=== PATIENT | male | born 1970 | race Caucasian/White ===

== ENCOUNTER 2016-07-18 08:10 | Observation (INO) | payer BC ==
[2016-07-18] MEDS ORDERED: Buffered Lidocaine 1% SYR 3ML* 3 ML/SYR SYRINGE ONE (08:35)
[2016-07-18] MEDS ORDERED: Clindamycin 900 MG IVPREMIX(* 900 MG/50 ML SDV IV ONE (08:35)
[2016-07-18] MEDS ORDERED: Famotidine IV* 10 MG/ML 2 ML (20 mg) ONE (08:35)
[2016-07-18] MEDS ORDERED: Dexamethasone IV* 4 MG/ML 1 ML (4 MG) ONE (08:35)
[2016-07-18] MEDS ORDERED: fentaNYL* 50 MCG/ML 5 ML VIAL (250 MCG VIAL) ONE (08:51)
[2016-07-18] MEDS ORDERED: Midazolam* 1 MG/ML 5 ML VIAL (5 MG) ONE (08:51)
[2016-07-18] MEDS ORDERED: HYDROmorphone INJ* 1 MG/ML CARPUJECT SYRINGE ONE ×4 (08:51→14:34)
[2016-07-18] MEDS ORDERED: Ondansetron INJ* 2 MG/ML VIAL ONE (08:53)
[2016-07-18] MEDS ORDERED: Succinylcholine* 20 MG/ML 10 ML VIAL ONE (08:53)
[2016-07-18] MEDS ORDERED: Lidocaine 2% MPF* 2 ML VIAL ONE (08:53)
[2016-07-18] MEDS ORDERED: Ketorolac INJ* 30 MG/ML 1 ML VIAL ONE (08:53)
[2016-07-18] MEDS ORDERED: Propofol* 10 MG/ML 20 ML BTL IV PUSH ONE (08:53)
[2016-07-18] MEDS ORDERED: Famotidine IV* 10 MG/ML 2 ML (20 mg) IV ONE (09:32)
[2016-07-18] MEDS ORDERED: Dexamethasone IV* 4 MG/ML 1 ML (4 MG) IV SLOW PU ONE (09:32)
[2016-07-18] MEDS ORDERED: Buffered Lidocaine 1% SYR 3ML* 3 ML/SYR SYRINGE INTRADERM ONE (09:32)
[2016-07-18] MEDS ORDERED: Scopolamine 1.5 mg* PATCH TRANSDERM PRN (09:33)
[2016-07-18] MEDS ORDERED: PROCHLORPERAZINE INJ 5 MG/ML 2 ML VIAL IV PRN (09:33)
[2016-07-18] MEDS ORDERED: DiMENhydriNATE IV* 50 MG/ML VIAL IV PUSH PRN (09:33)
[2016-07-18] MEDS ORDERED: HYDROmorphone INJ* 1 MG/ML CARPUJECT SYRINGE IV PRN (09:33)
[2016-07-18] MEDS ORDERED: fentaNYL* 50 MCG/ML 2 ML VIAL (100 MCG VIAL) IV PRN (09:33)
[2016-07-18] MEDS ORDERED: Ondansetron INJ* 2 MG/ML VIAL IV PRN ×2 (09:33→11:41)
[2016-07-18] MEDS ORDERED: Bacitracin IV* 50,000 UNITS INJ ONE (10:25)
[2016-07-18] MEDS ORDERED: Thrombin 5,000 UNITS* 1 APPLIC KIT - topical use - TOPICAL ONE (10:25)
[2016-07-18] MEDS ORDERED: Lidocain 1% EPI 1:100,000 * 30 ML MDV ONE (10:25)
[2016-07-18] MEDS ORDERED: fentaNYL* 50 MCG/ML 2 ML VIAL (100 MCG VIAL) ONE ×3 (11:11→14:40)
[2016-07-18] MEDS ORDERED: Magnesium Hydroxide LIQ* 30 ML UDC PO PRN (11:41)
[2016-07-18] MEDS ORDERED: Acetaminophen TAB* 325 MG PO PRN (11:41)
[2016-07-18] MEDS ORDERED: Midazolam* 1 MG/ML 2 ML VIAL (2 MG) ONE (12:09)
--- NOTE | 2016-07-18 14:52 | RAD ---
INDICATION: Left lumbar discectomy L4-L5 and L5-S1 levels. COMPARISON: Correlation is made with a prior MRI of the lumbar spine from June 26, 2016. TECHNIQUE: A single crosstable portable lateral view of the lumbar spine was obtained in the operating room. FINDINGS: There are several surgical instruments which project posterior centered approximately at the L4-L5 level. IMPRESSION: INTRAOPERATIVE CONTROL FILMS.
[2016-07-18] MEDS: Cyclobenzaprine TAB* 10 MG PO SCH ×2 (15:35→21:18)
[2016-07-18] MEDS ORDERED: fentaNYL PATCH 25 MCG/HR TRANSDERM SCH (16:00)
[2016-07-18] MEDS: Lidocaine PATCH 5%* 1 PATCH TRANSDERM SCH (16:01)
[2016-07-18] MEDS: fentaNYL Patch Check Q Shift 1 NOTE SCH (18:33)
[2016-07-18] MEDS: oxyCODONE TAB* 5 MG TAB PO PRN ×2 (18:39→23:45)
[2016-07-18] MEDS ORDERED: Lidocaine Patch REMOVE* 1 NOTE MISC PATCH OFF SCH (21:00)
[2016-07-19] MEDS: oxyCODONE TAB* 5 MG TAB PO PRN (06:23)
[2016-07-19] MEDS: fentaNYL Patch Check Q Shift 1 NOTE SCH (06:56)
[2016-07-19 07:38] VITALS: BP 142/88
--- NOTE | 2016-07-19 07:51 | PN ---
Progress Note - Progress Note SOAP: Subjective: []Feels better Leg pain better Still has numbness, weakness left foot Objective: []Ambulating, voiding OK Neuro intact except mild left foot weakness Assessment: []Satis post op course Plan: []D/C today D/C instructions given
[2016-07-19] MEDS: Cyclobenzaprine TAB* 10 MG PO SCH (08:10)
[2016-07-19] MEDS: Lidocaine PATCH 5%* 1 PATCH TRANSDERM SCH (08:49)
--- NOTE | 2016-07-20 23:43 | OP ---
OPERATIVE REPORT: DATE OF OPERATION: 07/18/16 DATE OF : 74 PRIMARY SURGEON: oM Lyons MD MANAGER TECHNICAL TRAINING: assistant distribution manager - ANDREA Cam ANESTHESIA: General. PRE-OP DIAGNOSIS: Recurrent herniated nucleus pulposus at L5-S1 on the left. POST-OP DIAGNOSIS: Recurrent herniated nucleus pulposus at L5-S1 on the left. OPERATIVE PROCEDURE: Redo lumbar discectomy at L5-S1 on the left with lysis of cicatrix and removal of recurrent herniated disk fragment with microdissection. DESCRIPTION OF OPERATION: This patient had previously undergone 2 prior surgical procedures by Dr. Lugo at the L4-5 and L5-S1 levels. He had developed recurrent back and leg pain and preoperative imaging had shown recurrent disc herniations at L5-S1 on the left side with a persistent disc herni ation at L4-5 on the left. He was placed on general anesthesia and carefully placed on the operatin g table in the prone position with the chest supported on the Arjun frame and the back slightly fle xed. The lumbar region was then clipped, prepped, and draped in a sterile manner for lumbar laminec rekha and previous incision was reopened from L4 to the sacrum. This incision was infiltrated with 1 % Xylocaine with epinephrine, after which it was turned down sharply to the fascia and scar tissue. There was a small portion remaining of the L4 spinous process, which was adherent with scar tissue. An intraoperative x-ray was obtained verifying this was indeed the L4-5 level. There was apparently no remaining posterior elements in the midline of L5. The dissection was quite tedious as the bony landmarks were missing and was performed basically from a lateral to medial approach. The bony edg es of the prior laminectomy were identified and dissected free utilizing a combination of sharp and blunt dissection. Ultimately, the sacrum was identified and moving upward, the L5- S1 level could b e seen. The operating microscope was brought into the field and the remainder of the procedure done was under microscopic visualization. Additional lateral exposure was obtained until the lateral edg e of the S1 nerve root could be seen. The S1 nerve root was noted to be compressed posteriorly. Wit h additional microdissection, epidural venous structures were coagulated and divided. There was fou nd to be a freely extruded disk fragment that come out of the L5-S1 level and rejecting down over th e upper aspect of sacrum in the neural foramina of the S1 nerve root. This was removed in 1 very la rge fragment. The interspace itself was noted to be heaped up in a chronic nature and was not enter ed. In dissecting free the dura, a small opening was made just above the interspace. A minute amou nt of CSF was noted and this was controlled with a piece of Gelfoam. Following the decompression, D uraSeal tissue adhesive was placed into the epidural space. Afterwards, the fascia was tightly reap proximated with tightly placed interrupted 0 Vicryl sutures. The subcutaneous tissues were closed w ith 3-0 Vicryl sutures and the skin closed with skin clips. The estimated blood loss was less than 50 cc and the final sponge, padding, and needle counts were correct. The patient was taken to the r ecovery room, extubated, and in stable condition. [id number]/[facility] #: [id number]
[2016-07-21] MEDS ORDERED: Scopolamine PATCH Remove* 1 NOTE MISC PATCH OFF ONE (09:35)
--- NOTE | 2016-07-24 22:57 | DS ---
DISCHARGE SUMMARY: DATE OF ADMISSION: 07/18/16 DATE OF DISCHARGE: 07/19/16 DISCHARGE DIAGNOSES: 1. Recurrent herniated nucleus pulposus, L5-S1 on the left. 2. Asthma. 3. History of 2 previous lumbar spine surgeries. SPECIAL PROCEDURE: Lumbar diskectomy at L5-S1 on the left. HOSPITAL COURSE: This 46-year-old male was seen in office with signs and symptoms of significant lumbar radiculopathy. He failed to improve over several months with conservative treatment. MRI showed a recurrent disk displacement at L5-S1 on the left. He was admitted at this time for elective surgical intervention. On the day of admission, he was taken to surgery, where under general anesthesia, a repeat lumbar diskectomy at L5-S1 on the left operation was carried out. Postoperatively, he was feeling well. Pain was well controlled with oral pain medications. He was ambulating independently. He was eating, drinking, and voiding without difficulty. DISCHARGE DISPOSITION: On the first postoperative day, he was discharged home to the care of his family. DISCHARGE INSTRUCTIONS: Discharge instructions including wound care and activity level were discussed with the patient and provided. DISCHARGE MEDICATIONS: Include oxycodone 10 mg 1 tablet every 4 hours as needed for pain. FOLLOWUP: He will be seen in office in approximately 7 to 10 days for a followup and staple removal. ANDREA TRUJILLO [id number]/[facility] #: [id number] MTDLudin
== END 2016-07-19 09:45 | disposition home or self-care (01) ==
LOC: OR 08:10 → SSU 15:15
PROVIDERS: ADMIT Neurological Surgery; ATTEND Neurological Surgery
PROC: 01NB0ZZ Release Lumbar Nerve, Open Approach (ICD-10-PCS; 2016-07-18)
PROC: 0SB20ZZ Excision of Lumbar Vertebral Disc, Open Approach (ICD-10-PCS; principal; 2016-07-18 09:30)
DX: M51.17 Intervertebral disc disorders with radiculopathy, lumbosacral region (principal); Z88.0 Allergy status to penicillin
CPT/HCPCS: 72100; 88304; 96361; 96374; A9270-GY; G0378; J0330; J1100; J1170; J1885; J2250; J2405; J2704; J3010

== ENCOUNTER 2016-11-18 18:31 | Emergency (ER) | payer BC ==
[2016-11-18] MEDS ORDERED: oxyCODONE TAB* 5 MG TAB PO ONE (19:26)
[2016-11-18] MEDS ORDERED: LORazepam TAB(*) 1 MG PO ONE (19:26)
[2016-11-18] MEDS ORDERED: Ketorolac INJ* 60 MG/2 ML VIAL IM ONE (19:27)
[2016-11-18] MEDS ORDERED: Ketorolac INJ* 30 MG/ML 1 ML VIAL ONE (19:57)
--- NOTE | 2016-11-18 20:00 | ED ---
Back Pain - HPI Summary HPI Summary: Patient presents to ED with lumbar back pain since this afternoon. He rates the pain a 10/10 and is visibly shaking and in discomfort on arrival. Pain is throughout the lumbar spine and radiates down both legs. He notes to numbness in the left leg. He is 4 mos s/p discectomy/laminectomy with chronic pain. He has taken 5mg valium for back spasms, but denies pain medications. He denies injury or trauma. He has had chronic back pain "since 1997." His is accompanying him. He states he does not like to take pain medications, based on the way it makes him feel. - History of Current Complaint Chief Complaint: EDBackInjuryPain Stated Complaint: BACK PAIN Time Seen by Provider: 11/18/16 19:17 Hx Obtained From: Patient Onset/Duration: Sudden Onset Onset/Duration: Started Hours Ago Timing: Constant Back Pain Location: Is Discrete @ - lumbar spine Pain Intensity: 10 Pain Scale Used: 0-10 Numeric Character: Aching, Spasmodic Aggravating Symptom(s): Movement, Bending, Walking Alleviating Symptom(s): Nothing Associated Signs And Symptoms: Positive: Weakness, Numbness, Tingling Related History: Previous Back Injury - Risk Factors AAA Risk Factors: Negative TAD Risk Factors: Negative Cauda Equina Risk Factors: Lower Extemity Numbness, Lower Extremity Weakness Epidural Abscess Risk Factors: Negative - Allergies/Home Medications Allergies/Adverse Reactions: Allergies Allergy/AdvReac Type Severity Reaction Status Date / Time Penicillins [PCN] Allergy Unknown Unknown Verified 07/18/16 08:39 Reaction Details PMH/Surg Hx/FS Hx/Imm Hx Previously Healthy: Yes Endocrine/Hematology History: Denies: Hx Diabetes, Hx Thyroid Disease Cardiovascular History: Denies: Hx Hypertension, Hx Pacemaker/ICD Respiratory History: Reports: Hx Asthma - SEASONAL, Hx Seasonal Allergies Denies: Hx Chronic Obstructive Pulmonary Disease (COPD) GI History: Denies: Hx Ulcer History: Denies: Hx Dialysis, Hx Renal Disease Musculoskeletal History: Reports: Hx Arthritis - LOW BACK, Hx Back Problems Sensory History: Reports: Hx Contacts or Glasses Denies: Hx Hearing Aid Opthamlomology History: Reports: Hx Contacts or Glasses Neurological History: Denies: Other Neuro Impairments/Disorders Psychiatric History: Denies: Hx Panic Disorder - Surgical History Surgery Procedure, Year, and Place: 05/2010 DOUBLE SYDNEE - LAMINECTOMY DR. NELSON. 07/[address] NELSON Hx Anesthesia Reactions: No - Immunization History Date of Tetanus Vaccine: up to date per pt Infectious Disease History: No Infectious Disease History: Denies: Hx Clostridium Difficile, Hx Hepatitis, Hx Human Immunodeficiency Virus (HIV), Hx of Known/Suspected MRSA, Hx Shingles, Hx Tuberculosis, Hx Known/ Suspected VRE, Hx Known/Suspected VRSA, History Other Infectious Disease, Traveled Outside the [place] in Last 30 Days - Family History Known Family History: Positive: Cardiac Disease, Other - cancer - Social History Occupation: Employed Full-time Lives: With Family Alcohol Use: Rare Hx Substance Use: No Substance Use Type: Reports: None Hx Tobacco Use: No Smoking Status (MU): Never Smoked Tobacco Do You Chew or Dip Tobacco: No Have You Smoked in the Last Year: No Review of Systems Constitutional: Negative Eyes: Negative Cardiovascular: Negative Respiratory: Negative Positive: no symptoms reported, see HPI Positive: Arthralgia - lower back pain radiating to the left leg Skin: Negative Psychological: Normal All Other Systems Reviewed And Are Negative: Yes Physical Exam - Summary Physical Exam Summary: Thorough physical exam was performed, focusing on thoracic and lumbar special tests and ROM. Due to patient pain around injury, physical exam was limited. Limited ROM. Flip Test positive. Straight leg raise positive. Hip flexion and extension, knee extension, dorsiflexion, great toe extension and plantar flexion intact. Rotating at hips limited d/t pain. Nerve roots L4-S2 reflexes intact. L1-L5 nerve root sensory intact. S1-S2 nerve root sensory decreased. No saddle anesthesia. Gait abnormal with a shuffle. Triage Information Reviewed: Yes Vital Signs On Initial Exam: Initial Vitals Temp Pulse Resp Pulse Ox 97.5 F 109 20 99 11/18/16 18:36 11/18/16 18:36 11/18/16 18:36 11/18/16 18:36 Vital Signs Reviewed: Yes Appearance: Positive: Well-Appearing, Well-Nourished Skin: Positive: Warm, Skin Color Reflects Adequate Perfusion Neck: Positive: Supple, No Lymphadenopathy Respiratory/Lung Sounds: Positive: Clear to Auscultation, Breath Sounds Present Cardiovascular: Positive: Normal, RRR Musculoskeletal: Positive: Pain @ - lumbar spine Neurological: Positive: Alert, Oriented to Person Place, Time, Speech Normal, Other - numbness and tingling of left leg. Psychiatric: Positive: Normal AVPU Assessment: Alert - [place] Coma Scale Best Eye Response: 4 - Spontaneous Best Motor Response: 6 - Obeys Commands Best Verbal Response: 5 - Oriented Coma Scale Total: 15 Diagnostics - Vital Signs Vital Signs Temp Pulse Resp BP Pulse Ox 11/18/16 18:39 97.1 F 109 20 1/ 100 11/18/16 18:36 97.5 F 109 20 99 - Laboratory Lab Statement: Any lab studies that have been ordered have been reviewed, and results considered in the medical decision making process. - CT No standard instances CT Interpretation: Positive (See Comments) CT Interpretation Completed By: Radiologist - IMPRESSION: 1. At L4-L5-L1 large posterior central to LEFT subarticular dorsal osteophyte results in moderate impression on the anterior and LEFT anterior margin of the thecal sac and probable effacement of the traversing LEFT L5 nerve root in the lateral recess without significant change. . Vertebral endplate osteophytosis and facet joint osteoarthritis results in moderately severe RIGHT and mild LEFT foraminal stenosis without significant change. 2. At L5-S1 dorsal osteophyte results in effacement of the traversing LEFT S1 nerve root in the lateral recess without significant change. Vertebral endplate osteophytosis and facet joint osteoarthritis results in moderately severe LEFT foraminal stenosis without significant change. Back Pain Course/Dx - Course Course Of Treatment: Patient sent to CT lumbar. Given Flexiril, toradol and oxycodone in ED with some relief. Patient made aware of CT results as no significant change was noted in the impression. Patient needs to follow up with Dr. Lyons or other neurosurgeon for further workup as this pain has been present since the surgery, and only recently has worsened. Refilled diazepam for pain and muscle spasms. - Diagnoses Differential Diagnosis/HQI/PQRI: Positive: Herniated Disc, Strain, Sprain Provider Diagnoses: Low back pain, Chronic back pain Discharge - Discharge Plan Condition: Stable Disposition: HOME Prescriptions: Diazepam TAB(*) [Valium TAB(*)] 5 mg PO Q6H PRN #20 tab MDD 4 PRN Reason: Pain Patient Education Materials: Lumbar Spinal Stenosis (ED) Referrals: Rajendra Benitez MD [Primary Care Provider] - Additional Instructions: Moist heat to the area as much as possible Valium for muscle spasms Please follow up with a neurosurgeon as soon as possible. If you develop worsening symptoms, or begin to have bladder or bowel dysfunction , please come back to ED.
--- NOTE | 2016-11-18 20:02 | RAD ---
Indication: Severe back pain acute on chronic. Previous spinal surgery. RIGHT side numbness. Concern for herniation. Comparison: June 27, 2016 MRI. Technique: Noncontrast CT lumbar sacral spine. Multiplanar reformation. Report: Unremarkable paravertebral soft tissues. Negative for fracture or spondylolysis at any level. Normal vertebral alignment without spondylolisthesis at any level. T12-L1: Unremarkable for age. L1-L2: Unremarkable for age. L2-L3: Unremarkable for age. L3-L4: Mild annular disc bulge with only mild resulting impression on the ventral margin of the thecal sac without significant acquired central canal stenosis. Negative for significant foraminal stenosis. L4-L5: Post laminectomy. Large posterior central to LEFT subarticular dorsal osteophyte with resulting impression on the anterior and LEFT anterior margin of the thecal sac and probable effacement of the traversing LEFT L5 nerve root in the lateral recess without significant change. Vertebral endplate osteophytosis and facet joint osteoarthritis results in moderately severe RIGHT and mild LEFT foraminal stenosis without significant change. L5-S1: Moderately large LEFT paracentral to subarticular dorsal osteophytosis with resulting mild impression on the LEFT anterior margin of the thecal sac and effacement of the traversing LEFT S1 nerve root in the lateral recess without significant change. Vertebral endplate osteophytosis and facet joint osteoarthritis results in moderately severe LEFT foraminal stenosis without significant change. Negative for significant RIGHT foraminal stenosis. IMPRESSION: 1. At L4-L5-L1 large posterior central to LEFT subarticular dorsal osteophyte results in moderate impression on the anterior and LEFT anterior margin of the thecal sac and probable effacement of the traversing LEFT L5 nerve root in the lateral recess without significant change. . Vertebral endplate osteophytosis and facet joint osteoarthritis results in moderately severe RIGHT and mild LEFT foraminal stenosis without significant change. 2. At L5-S1 dorsal osteophyte results in effacement of the traversing LEFT S1 nerve root in the lateral recess without significant change. Vertebral endplate osteophytosis and facet joint osteoarthritis results in moderately severe LEFT foraminal stenosis without significant change.
[2016-11-18 21:25] VITALS: BP 135/90
== END 2016-11-18 21:25 | disposition home or self-care (01) ==
LOC: SUPCPDRO 18:31 → ED 18:31
DX: M54.5 Low back pain (principal); G89.29 Other chronic pain
CPT/HCPCS: 72131; 96372; 99282; A9270-GY; J1885

== ENCOUNTER 2017-04-17 11:50 | Day surgery (SDC) | payer BC ==
[~2017-04-17 11:50] MED LIST: Buffered Lidocaine 0.9% SYRIN* 5 ML/SYR SYRINGE INTRADERM ONE
[2017-04-17] MEDS ORDERED: Clindamycin 900 MG IVPREMIX(* 900 MG/50 ML SDV IV ONE (12:01)
[2017-04-17] MEDS ORDERED: Buffered Lidocaine 0.9% SYRIN* 5 ML/SYR SYRINGE ONE (12:01)
[2017-04-17] MEDS ORDERED: Bupivacaine 0.25% SDV* 30 ML ONE (14:01)
[2017-04-17] MEDS ORDERED: Lidocaine 1% INJ* 10 MG/ML 30 ML SDV ONE (14:01)
[2017-04-17] MEDS ORDERED: Midazolam* 1 MG/ML 5 ML VIAL (5 MG) ONE (14:22)
[2017-04-17] MEDS ORDERED: fentaNYL* 50 MCG/ML 2 ML VIAL (100 MCG VIAL) ONE (14:23)
[2017-04-17] MEDS ORDERED: Propofol* 10 MG/ML 20 ML BTL IV PUSH ONE (14:28)
[2017-04-17] MEDS ORDERED: Lidocaine 2% PF * 5 ML VIAL ONE (14:28)
[2017-04-17] MEDS ORDERED: Labetalol IV* 5 MG/ML 20 ML VIAL ONE (15:02)
[2017-04-17 15:46] VITALS: BP 120/88
--- NOTE | 2017-04-17 15:55 | RAD ---
INDICATION: dorsal column stimulator placement COMPARISONS: CT dated November 18, 2016 TECHNIQUE: Fluoroscopy was provided for dorsal column stimulator placement. Total fluoroscopy time is: 291.2 seconds FINDINGS: Spot images demonstrate a dorsal column stimulator. The electrodes are noted overlying the lower thoracic spine. The levels are indeterminate on the submitted images. IMPRESSION: FLUOROSCOPY WAS PROVIDED FOR DORSAL COLUMN STIMULATOR PLACEMENT. CPT II Codes: 6045F
--- NOTE | 2017-04-18 00:56 | OP ---
CC: Shawn Lugo MD, in [place] * DATE OF OPERATION: 04/17/17 - [facility] DATE OF : 74 SURGEON: Walker Lee MD RADIOLOGICAL ENGINEER: None. ANESTHESIOLOGIST: Dr. Saul. ANESTHESIA: Local MAC. PRE-OP DIAGNOSIS: Postlaminectomy syndrome. POST-OP DIAGNOSIS: Postlaminectomy syndrome. OPERATIVE PROCEDURE: Percutaneous dorsal column stimulator trial replacement with Nevro system. BLOOD LOSS: Zero. BRIEF PRE-OP NOTE: The patient is a 47-year-old male who has suffered from postlaminectomy syndrome and has failed conservative measures. It was recommended that he see us for a dorsal column stimulator trial. I met with the patient in the office and had a discussion with him about his pain. It has been intractable and has failed conservative measures, and after discussing the dorsal column stimulator trial the patient wanted to proceed. He was explained the risks of postdural puncture headache, bleeding, infection, nerve injury and failure of the device to work. After going over the risks, benefits and alternatives, informed consent was obtained. DESCRIPTION OF PROCEDURE: The patient was brought to the OR suite, placed prone on the fluoroscopic table. His back was prepped and draped in the usual sterile fashion. Using fluoroscopy, I identified the T12-L1 interspace and over the pedicle of T2 on the right, I anesthetized the skin and subcutaneous tissues with a mixture 1% lidocaine and 0.25% Marcaine. A #11 blade was used to make a skin geraldo, and then a #14 gauge Tuohy needle was directed under fluoroscopic guidance to the T12-L1 interlaminar space. The epidural space was identified using loss of resistance to air technique. There was no CSF, blood or paresthesias noted. There was negative aspiration. I proceeded to pass an A -contact Nevro lead into the epidural space and guided it to the top of T8 to the right of midline. I then marked the pedicle of L2, anesthetized the skin and subcutaneous tissues over that area with a mixture of 1% lidocaine and 0.25 % Marcaine. I then used an #11 blade to make a skin geraldo and then passed a #14 gauge Tuohy needle and directed it under fluoroscopic guidance to the T12-L1 interspace to the left of midline. I then identified the epidural space using loss of resistance to air technique. There was no CSF, blood or paresthesias noted. There was negative aspiration. I passed an A- contact Nevro lead into the epidural space and guided it to the left of midline with the top of the lead was at the top of the T9 vertebral body. Lateral fluoroscopic views were obtained, which showed good posterior placement in the epidural space. I then removed the stylets and needles. The leads were then anchored with use of the anchoring sleeve and 3-0 Prolene sutures to anchor the sleeve to the skin. I then used a 0-silk suture to cinch the lead within the anchors. Steri-Strips were placed and sterile dressings were applied. The patient was brought to the recovery area in stable condition where his dorsal column stimulator will be programmed by the [employer] used equipment sales representative. Flouroscopic images were saved. [id number]/[facility] #: [id number] SAMMY
== END 2017-04-17 16:05 | disposition home or self-care (01) ==
LOC: OR 11:50
PROVIDERS: ATTEND Anesthesiology Pain Medicine
DX: M96.1 Postlaminectomy syndrome, not elsewhere classified (principal)
CPT/HCPCS: 77003; C1897; J2001; J2250; J2704; J3010

== ENCOUNTER 2017-05-25 16:35 | Emergency (ER) | payer BC ==
[2017-05-25] MEDS ORDERED: Ketorolac INJ* 60 MG/2 ML VIAL IM ONE (17:43)
[2017-05-25] MEDS ORDERED: Orphenadrine Citrate IV* 30 MG/ML 2 ML VIAL IM ONE (17:44)
[2017-05-25] MEDS ORDERED: NS 0.9% 1000 ML* 1,000 ML IV ONE (20:54)
[2017-05-25 21:12] LABS: Hematocrit 45 % (42-52); Hemoglobin 15.6 g/dl (14.0-18.0); Mean Corpuscular HGB Conc 35 g/dl (31-36); Mean Corpuscular Hemoglobin 31 pg (27-31); Mean Corpuscular Volume 90 fL (80-94); Mean Platelet Volume 9 um3 (7.4-10.4); Red Blood Count 5.01 10^6/ul (4.0-5.4); Red Cell Distribution Width 13 % (10.5-15); White Blood Count 7.9 10^3/ul (3.5-10.8)
--- NOTE | 2017-05-25 21:23 | ED ---
Raymon Dubose Abhishek, scribed for Jurgen Reyes on 05/25/17 at 1848 . Back Pain - HPI Summary HPI Summary: This patient is a 47 year old M presenting to [facility] accompanied by with a chief complaint of back pain since earlier today. Pt states the back pain was described as someone stabbing me in the back and somebody shoved something white hot thing in my back. Pt states the following medications did not alleviate pain: Diazepam, Ibuprofen, Oxycodone, and Flexeril. The patient rates the pain 10/10 in severity. Symptoms aggravated by nothing. Symptoms alleviated by nothing. Patient reports numbness and tingling in right and left leg, back spasms, and ambulatory with assistance. Patient denies incontinence urine and BM. Pt also refused the rectal examination. - History of Current Complaint Chief Complaint: EDBackInjuryPain Stated Complaint: BACK PAIN Time Seen by Provider: 05/25/17 17:31 Hx Obtained From: Patient, Family/Correspondence Analyst Onset/Duration: Sudden Onset - earlier today, Lasting Hours Onset/Duration: Started Hours Ago Timing: Constant, Lasting Hours Severity Initially: Severe Severity Currently: Severe Pain Intensity: 10 Pain Scale Used: 0-10 Numeric Character: Sharp - Pt states the back pain was described as someone stabbing me in the back, Burning - Pt describes pain as somebody shoved something white hot thing in my back. Aggravating Symptom(s): Nothing Alleviating Symptom(s): Nothing Associated Signs And Symptoms: Positive: Numbness - both legs, Tingling - both legs. Negative: Bladder Incontinence, Bowel Incontinence - Allergies/Home Medications Allergies/Adverse Reactions: Allergies Allergy/AdvReac Type Severity Reaction Status Date / Time Penicillins [PCN] Allergy Unknown Unknown Verified 05/25/17 17:15 Reaction Details PMH/Surg Hx/FS Hx/Imm Hx Endocrine/Hematology History: Denies: Hx Diabetes, Hx Thyroid Disease Cardiovascular History: Reports: Hx Hypertension - BORDERLINE- STATES NO MEDICATION FOR AT THIS TIME Denies: Hx Pacemaker/ICD Respiratory History: Reports: Hx Asthma - SEASONAL, Hx Seasonal Allergies Denies: Hx Chronic Obstructive Pulmonary Disease (COPD) GI History: Denies: Hx Ulcer History: Denies: Hx Dialysis, Hx Renal Disease Musculoskeletal History: Reports: Hx Arthritis - LOW BACK, Hx Back Problems Sensory History: Reports: Hx Contacts or Glasses - GLASSES Denies: Hx Hearing Aid Opthamlomology History: Reports: Hx Contacts or Glasses - GLASSES Neurological History: Denies: Other Neuro Impairments/Disorders Psychiatric History: Denies: Hx Panic Disorder - Surgical History Surgery Procedure, Year, and Place: 05/2010 DOUBLE SYDNEE - LAMINECTOMY DR. NELSON. 07/[address] NELSON. 07/2016 DISCECTOMY Hx Anesthesia Reactions: No - Immunization History Date of Tetanus Vaccine: up to date per pt Infectious Disease History: No Infectious Disease History: Denies: Hx Clostridium Difficile, Hx Hepatitis, Hx Human Immunodeficiency Virus (HIV), Hx of Known/Suspected MRSA, Hx Shingles, Hx Tuberculosis, Hx Known/ Suspected VRE, Hx Known/Suspected VRSA, History Other Infectious Disease, Traveled Outside the [place] in Last 30 Days - Family History Known Family History: Positive: Cardiac Disease, Other - cancer - Social History Alcohol Use: Rare Alcohol Amount: 1 beer per month Hx Substance Use: No Substance Use Type: Reports: Prescribed Hx Tobacco Use: No Smoking Status (MU): Never Smoked Tobacco Have You Smoked in the Last Year: No Review of Systems Constitutional: Negative Eyes: Negative ENT: Negative Cardiovascular: Negative Respiratory: Negative Gastrointestinal: Negative Negative: incontinence Positive: Other - sharp back pain, back spasms Skin: Negative Neurological: Other - Ambulatory with assitance Positive: Numbness - Both legs. Each leg also has a tingling feeling Psychological: Normal All Other Systems Reviewed And Are Negative: Yes Physical Exam - Summary Physical Exam Summary: Appearance: Well appearing, no pain distress Skin: warm, dry, reflects adequate perfusion Head/face: normal Eyes: EOMI, JALEEL ENT: normal Neck: supple, non-tender Respiratory: CTA, breath sounds present Cardiovascular: RRR, pulses symmetrical Abdomen: non-tender, soft Bowel: present Musculoskeletal: Spasms in the lumbar spine Neuro: normal, sensory motor intact, A&Ox3 Triage Information Reviewed: Yes Vital Signs On Initial Exam: Initial Vitals Temp Pulse Resp BP Pulse Ox 97.0 F 99 18 183/105 97 05/25/17 16:40 05/25/17 16:40 05/25/17 16:40 05/25/17 16:40 05/25/17 16:40 Vital Signs Reviewed: Yes - Petra Coma Scale Coma Scale Total: 15 Diagnostics - Vital Signs Vital Signs Temp Pulse Resp BP Pulse Ox 05/25/17 18:00 90 95 05/25/17 17:30 94 133/70 94 05/25/17 17:07 92 95 05/25/17 17:05 132/85 05/25/17 16:40 97.0 F 99 18 183/105 97 - Laboratory Lab Results: Lab Results 05/25/17 Range/Units 21:02 WBC 7.9 (3.5-10.8) 10^3/ul RBC 5.01 (4.0-5.4) 10^6/ul Hgb 15.6 (14.0-18.0) g/dl Hct 45 (42-52) % MCV 90 (80-94) fL MCH 31 (27-31) pg MCHC 35 (31-36) g/dl RDW 13 (10.5-15) % Plt Count 161 (150-450) 10^3/ul MPV 9 (7.4-10.4) um3 Neut % (Auto) 67.2 (38-83) % Lymph % (Auto) 24.6 L (25-47) % [place] % (Auto) 5.7 (1-9) % Eos % (Auto) 1.5 (0-6) % Baso % (Auto) 1.0 (0-2) % Absolute Neuts (auto) 5.3 (1.5-7.7) 10^3/ul Absolute Lymphs (auto) 1.9 (1.0-4.8) 10^3/ul Absolute Monos (auto) 0.4 (0-0.8) 10^3/ul Absolute Eos (auto) 0.1 (0-0.6) 10^3/ul Absolute Basos (auto) 0.1 (0-0.2) 10^3/ul Absolute Nucleated RBC 0.01 10^3/ul Nucleated RBC % 0.1 Result Diagrams: 05/25/17 21:02 Lab Statement: Any lab studies that have been ordered have been reviewed, and results considered in the medical decision making process. Back Pain Course/Dx - Course Course Of Treatment: This patient is a 47 year old M presenting to [facility] accompanied by with a chief complaint of back pain since earlier today. Pt states the back pain was described as someone stabbing me in the back and somebody shoved something white hot in my back. Patient reports numbness and tingling in right and left leg, back spasms, and ambulatory with assistance. Patient denies incontinence urine and BM. Pt also refused the rectal examination. We discussed patient care with Dr. Hester and he recommends an MRI on the spine of the patient. Patient is signed out to Dr. Clemente, pending disposition, awaiting Lumbar Spine MRI. The Dx is back pain. The patient is agreeable with this plan. - Diagnoses Differential Diagnosis/HQI/PQRI: Positive: Cauda Equina Syndrome, Compressive Cord Syndrome, Epidural Abscess, Herniated Disc, Strain Provider Diagnoses: Back pain - Provider Notifications Discussed Care Of Patient With: Mo Hester Time Discussed With Above Provider: 18:44 Instructed by Provider To: Other - He recommends MRI on the spine for patient Discharge - Discharge Plan Condition: Stable Disposition: OTHER Discharge Disposition Comment: Patient signed out to Dr. Clemente pending disposition, awaiting L-Spine MRI Referrals: Rajendra Benitez MD [Primary Care Provider] - The documentation as recorded by the Rayomn davis Abhishek accurately reflects the service I personally performed and the decisions made by me, Jurgen Reyes.
[2017-05-25 21:33] LABS: BUN/Creatinine Ratio 21.4 (8-20); EGFR African American 127.1 (>60); EGFR Non-African American 98.8 (>60); Globulin 2.5 g/dL (2-4); Potassium 3.7 mmol/L (3.5-5.0); Total Bilirubin 0.5 mg/dL (0.2-1.0); Total Protein 6.5 g/dL (6.4-8.9)
[2017-05-25 21:36] LABS: Urine Bacteria Absent (Absent); Urine Bilirubin Negative (Negative); Urine Glucose 3+(>=500 mg/dL) (Negative); Urine Nitrite Negative (Negative)
--- NOTE | 2017-05-25 21:49 | RAD ---
INDICATION: Recent removal of dorsal column stimulator. Confirm with imaging. COMPARISON: Fluoroscopy April 17, 2017 TECHNIQUE: AP views of the thoracic and lumbar spine were obtained. FINDINGS: The dorsum column stimulator is not identified. This is consistent with the clinical history as provided by the patient. There is spurring of the thoracic spine and there is a spinal decompression at L4 and L5. There is no acute appearing bony change. The psoas margins are sharp. IMPRESSION: THE DORSAL COLUMN STIMULATOR HAS BEEN REMOVED.
[2017-05-25] MEDS ORDERED: Gadoteridol* (CONTRAST) 279.3 MG/ML 10 ML IV ONE (22:25)
[2017-05-26 00:25] VITALS: BP 126/74
--- NOTE | 2017-05-26 03:56 | ED ---
Ofelia Dubose Edward, scribed for Katherine Clemente MD on 05/25/17 at 2228 . Progress - Progress Note Progress Note: Pt signed out by Dr. Reyes pending MRI results. - Results/Orders Results/Orders: LUMBAR SPINE MRI - Patient is status post L4-5 laminotomy. Again note is made of L4-5 disc bulging with broad-based herniated component indenting the canal and slightly narrowing the foramina. The L4-5 disc bulge/herniation looks similar to the June scan. Again note is made of L5-S1 left paramedian disc herniation impressing on the left anterior canal and on the left S1 nerve root and narrowing the left foramen. the disc herniation, although still fairly severe, appears less prominent than on the June scan. No other lumbar disc bony or legamentous abnormalities are identified. No other abnormalities of the lumbar canal or nerve roots. Re-Evaluation - Re-Evaluation 1 Re-Evaluation Time: 00:05 Comment: Discuss MRI results, plan to d/c Course/Dx - Course Course Of Treatment: This patient is a 47 year old M presenting to [facility] accompanied by with a chief complaint of back pain since earlier today. Pt signed out by Dr. Reyes. Pt is on steroids. Pt states he has pain medications @ home. The pt has an appointment with his spine surgeon on 06/29/17 for a dorsal column stimulator. Pt will talk to his spine surgeon this week for pain management. Pt will be d/c home. - Diagnoses Provider Diagnoses: Back pain The documentation as recorded by the Ofelia davis Edward accurately reflects the service I personally performed and the decisions made by , Katherine Clemente MD.
--- NOTE | 2017-05-26 07:59 | RAD ---
HISTORY: Severe back pain with numbness in right leg COMPARISONS: June 27, 2016, June 26, 2016 TECHNIQUE: The following sequences were obtained of the lumbar spine: Sagittal and axial T1- and T2-weighted images, coronal T2-weighted images, and sagittal STIR images. Additionally, axial and sagittal T1 weighted images were obtained after contrast enhancement with a gadolinium-based intravenous contrast agent.. FINDINGS: The study is limited by patient motion artifact. SPINAL CORD, CONUS, AND CAUDA EQUINA: The visualized spinal cord, conus, and cauda equina are normal in caliber, position, and signal intensity. ALIGNMENT: The alignment is normal. VERTEBRAL BODIES: A laminectomy defect is noted at L4-L5 and L5-S1. JOINTS: There is facet hypertrophic change along the lower lumbar spine. MUSCULATURE: There is mild fatty infiltration INTERVERTEBRAL DISCS: There is loss of intervertebral disc height and T2 signal at L4-L5 and L5-S1 AXIAL IMAGES: T12-L1: There is no disc herniation, spinal stenosis, or neuroforaminal narrowing. L1-L2: There is no disc herniation, spinal stenosis, or neuroforaminal narrowing. L2-L3: There is bilateral facet hypertrophy. There is no disc herniation, spinal stenosis, or neuroforaminal narrowing. L3-L4: There is mild disc bulge with bilateral facet hypertrophy. There is no significant neural foraminal narrowing or central canal stenosis. L4-L5: There is broad-based disc bulge with nonenhancing soft tissue centrally consistent with a central disc protrusion, somewhat decreased from the residual disc material noted on the previous examination. There is partial effacement of the lateral recess bilaterally. There is bilateral facet hypertrophy. There is moderate bilateral neuroforaminal narrowing. L5-S1: Again noted is nonenhancing soft tissue within the left lateral recess consistent with a left lateral recess disc protrusion. This is slightly retracted from the previous examination currently measuring 0.8 centimeters in depth compared to approximately 1 cm when measured at comparable levels on the previous examination. There is persistent mass effect upon the descending left S1 nerve root. There is bilateral facet hypertrophy. There is marginal osteophyte formation at the neural foramina bilaterally. There is severe left and mild right neural foraminal narrowing. SOFT TISSUES: The visualized soft tissues of the abdomen are unremarkable. OTHER: There is minimal postsurgical enhancement at the levels of laminectomy. IMPRESSION: 1. POSTSURGICAL CHANGE. 2. AGAIN NOTED IS DEGENERATIVE DISC DISEASE AND OSTEOARTHRITIS WITH DISC PROTRUSIONS AT L4-L5 AND L5-S1, SLIGHTLY IMPROVED WHEN COMPARED TO JUNE 26, 2016. 3. THERE IS NEURAL FORAMINAL NARROWING DESCRIBED ABOVE. THERE IS NO SIGNIFICANT CENTRAL CANAL STENOSIS.
== END 2017-05-26 00:32 | disposition home or self-care (01) ==
LOC: ED 16:35
DX: M54.9 Dorsalgia, unspecified (principal)
CPT/HCPCS: 36415; 72100; 72158; 80053; 81003; 81015; 85025; 85610; 85730; 96372; 96374; 99284; A9579; J1885; J2360

== ENCOUNTER 2017-07-25 15:32 | Inpatient (IN) | payer BC ==
[2017-07-25 16:28] LABS: ABS Basophils 0.1 10^3/ul (0-0.2); ABS Eosinophils 0.2 10^3/ul (0-0.6); ABS Lymphocytes 1.6 10^3/ul (1.0-4.8); ABS Monocytes 0.5 10^3/ul (0-0.8); ABS Neutrophils 2.8 10^3/ul (1.5-7.7); ABS Nucleated RBC 0 10^3/ul; Eosinophil % 4.4 % (0-6); Hematocrit 44 % (42-52); Hemoglobin 15.6 g/dl (14.0-18.0); Lymphocyte % 31.2 % (25-47); Mean Corpuscular HGB Conc 35 g/dl (31-36); Mean Corpuscular Hemoglobin 31 pg (27-31); Mean Corpuscular Volume 89 fL (80-94); Mean Platelet Volume 9 um3 (7.4-10.4); Nucleated Red Blood Cells % 0; Platelet Count 172 10^3/ul (150-450); Red Blood Count 4.97 10^6/ul (4.0-5.4); Red Cell Distribution Width 12 % (10.5-15); White Blood Count 5.2 10^3/ul (3.5-10.8)
--- NOTE | 2017-07-25 16:28 | RAD ---
INDICATION: Left-sided weakness COMPARISON: CT of the brain dated June 14, 2005 TECHNIQUE: Contiguous axial sections of the brain were obtained from the skull base to the vertex without contrast. FINDINGS: The ventricles, cisterns and sulci are within normal limits. The davis-white matter differentiation is adequately maintained and there is no sulcal effacement. No significant focal abnormality or mass effect is present. There is no evidence for intracranial hemorrhage. No significant focal osseous abnormality is present. The visualized portion of the paranasal sinuses appear clear. The mastoid air cells are well aerated bilaterally. IMPRESSION: Normal CT of the brain.
[2017-07-25 16:43] LABS: EGFR Non-African American 90.1 (>60)
[2017-07-25] MEDS ORDERED: Iodixanol* (CONTRAST) 320 MG/ML 100 ML SDV IV ONE (18:49)
--- NOTE | 2017-07-25 18:52 | ED ---
Tico Dubose Stephanie, scribed for Sole Butler MD on 07/25/17 at 1750 . Neurological HPI - HPI Summary HPI Summary: The pt is a 47 y/o M presenting to the ED with c/o stroke-like symptoms that occurred yesterday at 13:00. Symptoms include Increased L foot drag, L arm weakness, L hand numbness, L facial numbness, and slurred speech. ( states his speech was like he had been to the dentist and his tongue was thick). The pt has a L foot drag at baseline but it was exacerbated yesterday during the neurological deficit episode. The first episode lasted 10- 15 minutes and the second episode lasted 30/45 minutes. All symptoms stopped at 15:00 yesterday. Per , pts face currently looks symmetrical. The pts L arm is currently weak. The pt has a history of diabetes but does not check his blood sugar. The pt has had 5 back surgeries including lumbar Double sydnee-laminectomy, discectomy , stimulator trial, and thoracic laminectomy, and a dorsal column stimulator ().The pt received the dorsal column stimulator from Dr. Ford at [facility] in [place], [place]. - History of Current Complaint Chief Complaint: EDNeurologicalDeficit Stated Complaint: POSS STROKE Time Seen by Provider: 07/25/17 15:47 Hx Obtained From: Patient, Family/Research Methodologist - , Other: - Dr. 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 - Additional Pertinent History Primary Care Physician: [id number] - Allergy/Home Medications Allergies/Adverse Reactions: Allergies Allergy/AdvReac Type Severity Reaction Status Date / Time Penicillins [PCN] Allergy Unknown Unknown Verified 05/25/17 17:15 Reaction Details Home Medications: Home Medications Diazepam TAB(*) [Valium TAB(*)] 5 mg PO Q12HR PRN MDD 10 mg 07/25/17 [History Confirmed 07/25/17] Ibuprofen TAB* [Advil TAB*] 200 mg PO Q6H PRN 07/25/17 [History Confirmed ] Methocarbamol TAB* [Robaxin 500 MG TAB*] 500 mg PO QID PRN 07/25/17 [History Confirmed 07/25/17] Ondansetron TAB* [Zofran 4 MG Tab*] 4 mg PO Q6H PRN 07/25/17 [History Confirmed 07/25/17] metFORMIN* [Glucophage 500 MG TAB *] 500 mg PO BID 07/25/17 [History Confirmed 07/25/17] oxyCODONE/Acetamin 5/325 MG* [Percocet 5/325 TAB*] 1 tab PO Q6H PRN 07/25/17 [ History Confirmed 07/25/17] PMH/Surg Hx/FS Hx/Imm Hx Endocrine/Hematology History: Reports: Hx Diabetes Denies: Hx Thyroid Disease Cardiovascular History: Reports: Hx Hypertension Denies: Hx Pacemaker/ICD Respiratory History: Reports: Hx Asthma - SEASONAL, Hx Seasonal Allergies Denies: Hx Chronic Obstructive Pulmonary Disease (COPD) GI History: Denies: Hx Ulcer History: Denies: Hx Dialysis, Hx Renal Disease Musculoskeletal History: Reports: Hx Arthritis - LOW BACK, Hx Back Problems - multiple surgeries Sensory History: Reports: Hx Contacts or Glasses - GLASSES Denies: Hx Hearing Aid Opthamlomology History: Reports: Hx Contacts or Glasses - GLASSES Neurological History: Denies: Other Neuro Impairments/Disorders Psychiatric History: Denies: Hx Panic Disorder - Surgical History Surgery Procedure, Year, and Place: 05/2010 DOUBLE SYDNEE - LAMINECTOMY DR. NELSON. 07/[address] NELSON. 07/[address] [place]. 2016 SPINAL STIMULATOR PLACEMENT - AND REMOVAL - LEAD REMOVAL VERIFIED VIA CLEARANCE XRAYS PER DR. CHAN 05.25.2017 Hx Anesthesia Reactions: No - Immunization History Date of Tetanus Vaccine: up to date per pt Infectious Disease History: No Infectious Disease History: Denies: Hx Clostridium Difficile, Hx Hepatitis, Hx Human Immunodeficiency Virus (HIV), Hx of Known/Suspected MRSA, Hx Shingles, Hx Tuberculosis, Hx Known/ Suspected VRE, Hx Known/Suspected VRSA, History Other Infectious Disease, Traveled Outside the [place] in Last 30 Days - Family History Known Family History: Positive: Cardiac Disease, Other - cancer - Social History Occupation: Employed Full-time Lives: With Family Alcohol Use: None Alcohol Amount: 1 beer per month Hx Substance Use: No Substance Use Type: Reports: Prescribed Hx Tobacco Use: No Smoking Status (MU): Never Smoked Tobacco Have You Smoked in the Last Year: No Review of Systems Negative: Fever Cardiovascular: Negative Respiratory: Negative Gastrointestinal: Negative Positive: Other - chronic back pain Skin: Negative Positive: Weakness - L upper and L lower extremities, Numbness - L hand, L face , Slurred Speech Psychological: Normal All Other Systems Reviewed And Are Negative: Yes Physical Exam - Summary Physical Exam Summary: Appearance: Ill-appearing, moderate pain distress, Well-nourished Skin: Warm, surgical scar on left Lower thoracic area well healed. Scar above L hip well healed. Head: Normal Head/Face inspection, symmetric Eyes: Conjunctiva clear PERRL EOMI ENT: Normal inspection Neck: Supple, no nodes, no JVD. Respiratory: Lungs clear, Normal breath sounds, no respiratory distress Cardio: RRR, No murmur, pulses normal, brisk capillary refill Abdomen: soft, nontender Bowel sounds: present Musculoskeletal: left plantar flexion and dorsiflexion 4/5; right 5/5 Intact/ ROM intact. No calf tenderness. No edema. Neuro: Alert, CN II-XII intact; muscle tone normal, facial symmetry, speech normal, sensory intact to light touch, left lower leg 4+/5 strength, left foot with 4/5 plantar flexion and 4/5 dorsiflextion. Motor strength on right 5/5 Psychological: Normal Triage Information Reviewed: Yes Vital Signs On Initial Exam: Initial Vitals Temp Pulse Resp BP Pulse Ox 97.1 F 91 20 139/104 95 07/25/17 15:34 07/25/17 15:34 07/25/17 15:34 07/25/17 15:34 07/25/17 15:34 Vital Signs Reviewed: Yes - [place] Coma Scale Coma Scale Total: 15 Diagnostics - Vital Signs Vital Signs Temp Pulse Resp BP Pulse Ox 07/25/17 17:00 91 19 153/93 96 07/25/17 16:37 94 21 161/100 95 07/25/17 16:00 87 18 146/96 96 07/25/17 15:57 95 07/25/17 15:55 91 19 94 07/25/17 15:53 155/92 07/25/17 15:34 97.1 F 91 20 139/104 95 - Laboratory Lab Results: Lab Results 07/25/17 07/25/17 07/25/17 Range/Units 16:15 16:15 16:15 WBC 5.2 (3.5-10.8) 10^3/ul RBC 4.97 (4.0-5.4) 10^6/ul Hgb 15.6 (14.0-18.0) g/dl Hct 44 (42-52) % MCV 89 (80-94) fL MCH 31 (27-31) pg MCHC 35 (31-36) g/dl RDW 12 (10.5-15) % Plt Count 172 (150-450) 10^3/ul MPV 9 (7.4-10.4) um3 Neut % (Auto) 53.4 (38-83) % Lymph % (Auto) 31.2 (25-47) % [place] % (Auto) 9.8 H (1-9) % Eos % (Auto) 4.4 (0-6) % Baso % (Auto) 1.2 (0-2) % Absolute Neuts (auto) 2.8 (1.5-7.7) 10^3/ul Absolute Lymphs (auto) 1.6 (1.0-4.8) 10^3/ul Absolute Monos (auto) 0.5 (0-0.8) 10^3/ul Absolute Eos (auto) 0.2 (0-0.6) 10^3/ul Absolute Basos (auto) 0.1 (0-0.2) 10^3/ul Absolute Nucleated RBC 0 10^3/ul Nucleated RBC % 0 INR (Anticoag Therapy) 1.00 (0.77-1.02) APTT 35.2 (26.0-36.3) seconds Sodium 137 (133-145) mmol/L Potassium 3.5 (3.5-5.0) mmol/L Chloride 100 L (101-111) mmol/L Carbon Dioxide 31 (22-32) mmol/L Anion Gap 6 (2-11) mmol/L BUN 15 (6-24) mg/dL Creatinine 0.91 (0.67-1.17) mg/dL Est GFR ( Amer) 115.9 (>60) Est GFR (Non-Af Amer) 90.1 (>60) BUN/Creatinine Ratio 16.5 (8-20) Glucose 168 H (70-100) mg/dL Lactic Acid (0.5-2.0) mmol/L Calcium 9.5 (8.6-10.3) mg/dL Total Bilirubin 0.40 (0.2-1.0) mg/dL AST 18 (13-39) U/L ALT 39 (7-52) U/L Alkaline Phosphatase 58 (34-104) U/L Troponin I 0.00 (<0.04) ng/mL Total Protein 6.2 L (6.4-8.9) g/dL Albumin 3.9 (3.2-5.2) g/dL Globulin 2.3 (2-4) g/dL Albumin/Globulin Ratio 1.7 (1-3) 07/25/17 Range/Units 16:15 WBC (3.5-10.8) 10^3/ul RBC (4.0-5.4) 10^6/ul Hgb (14.0-18.0) g/dl Hct (42-52) % MCV (80-94) fL MCH (27-31) pg MCHC (31-36) g/dl RDW (10.5-15) % Plt Count (150-450) 10^3/ul MPV (7.4-10.4) um3 Neut % (Auto) (38-83) % Lymph % (Auto) (25-47) % [place] % (Auto) (1-9) % Eos % (Auto) (0-6) % Baso % (Auto) (0-2) % Absolute Neuts (auto) (1.5-7.7) 10^3/ul Absolute Lymphs (auto) (1.0-4.8) 10^3/ul Absolute Monos (auto) (0-0.8) 10^3/ul Absolute Eos (auto) (0-0.6) 10^3/ul Absolute Basos (auto) (0-0.2) 10^3/ul Absolute Nucleated RBC 10^3/ul Nucleated RBC % INR (Anticoag Therapy) (0.77-1.02) APTT (26.0-36.3) seconds Sodium (133-145) mmol/L Potassium (3.5-5.0) mmol/L Chloride (101-111) mmol/L Carbon Dioxide (22-32) mmol/L Anion Gap (2-11) mmol/L BUN (6-24) mg/dL Creatinine (0.67-1.17) mg/dL Est GFR ( Amer) (>60) Est GFR (Non-Af Amer) (>60) BUN/Creatinine Ratio (8-20) Glucose (70-100) mg/dL Lactic Acid 1.2 (0.5-2.0) mmol/L Calcium (8.6-10.3) mg/dL Total Bilirubin (0.2-1.0) mg/dL AST (13-39) U/L ALT (7-52) U/L Alkaline Phosphatase (34-104) U/L Troponin I (<0.04) ng/mL Total Protein (6.4-8.9) g/dL Albumin (3.2-5.2) g/dL Globulin (2-4) g/dL Albumin/Globulin Ratio (1-3) Result Diagrams: 07/25/17 16:15 07/25/17 16:15 Lab Statement: Any lab studies that have been ordered have been reviewed, and results considered in the medical decision making process. - CT Brain CT Interpretation: No Acute Changes CT Interpretation Completed By: Radiologist - Normal CT of the brain. - EKG 15:52 EKG Rhythm: Sinus Rhythm - 88 BPM EKG Interpretation: Nml AVIVCT, nml QTc, nml axis EKG Comparison: No Significant Change - 07/11/16 NIH Scale - NIH Scale Level of Consciousness: Alert/Keenly Responsive Ask Patient the Month and His/Her Age: Both Correct Ask Pt to Open/Close Eyes and Cooling Pipe Inspector/Release Non-Paretic Hand: Both Correctly Best Gaze (Only Horizontal Eye Movement): Normal Facial Paresis-Pt to Smile & Close Eyes or Grimace Symmetry: Normal/Symmetrical Motor Function - Right Arm: No Drift-Holds 10 Seconds Motor Function - Left Arm: No Drift-Holds 10 Seconds Motor Function - Right Leg: No Drift-Holds 10 Seconds Motor Function - Left Leg: Drifts LT 10 seconds Sensory (Use Pinprick to Test Arms/Legs/Trunk/Face): Normal Best Language (Describe Picture, Name Items): No Aphasia Dysarthria (Read Several Words): Normal Re-Evaluation - Re-Evaluation First Eval Re-Evaluation Time: 18:00 - informed Dr. Ford recommends no MRI. Will be admitted. To have CTA head and neck Change: Unchanged Second Eval Re-Evaluation Time: 19:30 - informed of CTA results. Pt agrees to admission Change: Unchanged Course/Dx - Course Course Of Treatment: No evidence of CVA on initial CT. Pt unable to have MRI due to dorsal column stimulator, per discussion by phone with pt's neurosurgeon , Dr. Ford. Per Dr Goodson ([facility]) will obtain CTA of head and neck . Per Dr. Chan, CTA shows no significant carotid disease. Pt will be admitted for aspirin therapy, cardiac echo, and further evaluation for possible stroke. - Differential Dx Differential Diagnoses Neuro: Positive: Cerebrovascular Accident, Intracranial Bleed, Transient Ischemic Attack - Diagnoses Provider Diagnoses: TIA (transient ischemic attack), Left leg weakness - Physician Notifications Discussed Care Of Patient With: [facility] Good[facility] - try to determine if can have MRI. If not, CTA head and neck Time Discussed With Above Provider: 17:40 - Dr. Frod, neurosurgeon, [facility]; pt may have ASA. Discharge - Discharge Plan Condition: Stable Disposition: ADMITTED TO [facility] documentation as recorded by the Tico davis Stephanie accurately reflects the service I personally performed and the decisions made by , Sole Butler MD.
--- NOTE | 2017-07-25 19:37 | RAD ---
INDICATION: Left-sided weakness-now resolved COMPARISON: CT brain July 25, 2017 TECHNIQUE: Axial source images were acquired with coronal and sagittal reconstructions. CT angiographic technique was utilized with injection of 80 mL Omnipaque 350. There is mildly suboptimal opacification of the aortic arch and proximal great vessels but this is considered a diagnostic study. FINDINGS: Aortic arch: There are no convincing CT angiogram abnormalities of the arch or the great vessels arising from the arch. Right carotid: The common carotid artery, carotid bifurcation, extracranial portions of the internal carotid artery, carotid artery at the skull base, carotid siphon, and carotid termination appear normal. Left carotid:The common carotid artery, carotid bifurcation, extracranial portions of the internal carotid artery, carotid artery at the skull base, carotid siphon, and carotid termination appear normal. Right middle and anterior cerebral arteries: There are no CT angiographic abnormalities of the middle or anterior cerebral arteries. Left middle and anterior cerebral arteries: There are no CT angiographic abnormalities of the middle or anterior cerebral arteries Right vertebral: The CT angiographic appearance of the vertebral artery is normal. Left vertebral: The CT angiographic appearance of the vertebral artery is normal. Basilar artery: The basilar artery and basilar tip appear normal. Posterior cerebral arteries: The distal distribution of the right and left posterior cerebral arteries is normal. [place] of [place]: The CT angiographic appearance of the [place] is normal. Source images show no evidence of mass or adenopathy within the neck. There are no focal brain parenchymal abnormalities or abnormal areas of enhancement. IMPRESSION: NO SPECIFIC CT ENDOGRAFT ABNORMALITY. CPT II Codes: 3100F RS
[2017-07-25] MEDS ORDERED: Ondansetron INJ* 2 MG/ML VIAL IV PRN (19:44)
[2017-07-25] MEDS ORDERED: Acetaminophen TAB* 325 MG PO PRN (19:44)
[2017-07-25] MEDS ORDERED: Aspirin EC TAB* 325 MG PO ONE (19:46)
[2017-07-25] MEDS ORDERED: Diazepam TAB(*) 5 MG PO PRN (20:07)
[2017-07-25] MEDS ORDERED: Ondansetron TAB* 4 MG PO PRN (20:07)
[2017-07-25] MEDS ORDERED: oxyCODONE/Acetamin 5/325 MG* TAB PO PRN (20:07)
[2017-07-25] MEDS ORDERED: Ibuprofen TAB* 200 MG PO PRN (20:07)
[2017-07-25] MEDS ORDERED: Dextrose 50% Syringe 50 ML* 25 GM/50 ML SYRINGE IV PUSH PRN (20:12)
[2017-07-25 20:21] LABS: Urine Appearance Clear; Urine Blood Negative (Negative); Urine Color Yellow; Urine Ketones Trace (Negative); Urine Protein Negative (Negative); Urine Specific Gravity > 1.060 (1.010-1.030); Urine Urobilinogen Negative (Negative)
[2017-07-25] MEDS ORDERED: metFORMIN* 500 MG TAB PO SCH (21:00)
[2017-07-25] MEDS: Heparin VIAL(*) 5000 UNITS/ML VIAL (FIVE THOUSAND) SUBCUT SCH (22:17)
[2017-07-25] MEDS: Methocarbamol TAB* 500 MG PO PRN (22:20)
--- NOTE | 2017-07-26 00:07 | HP ---
CC: Dr. Benitez * HISTORY AND PHYSICAL: DATE OF ADMISSION: 07/25/17 PRIMARY CARE PROVIDER: Dr. Benitez. NEUROSURGEON: Dr. Ford. CHIEF COMPLAINT: Increased left-sided weakness, numbness of the left face, arm and leg. HISTORY OF PRESENT ILLNESS: Mr. Slaughter is a 47-year-old male with a history of hypertension, newly diagnosed type 2 diabetes, and chronic back pain, who presented to the emergency room on 07/25/17 with complaints of increased left- sided weakness and numbness on the day prior to admission. The patient notes that he was at [facility] on 07/24/17 when he had a severe back spasm. Following the back spasm, he noticed first increased left leg numbness followed by left arm and left face tingling. His felt that his speech was somewhat slurred. The patient believes that the symptoms lasted for about approximately 1 to 2 hours and then resolved after lying down at home. The patient contacted the [facility] for the dorsal column stimulator that was placed last month to see if these symptoms that he had could be side effects from the dorsal column stimulator. He states that he called them after hours and was called back this morning stating that these were not symptoms consistent with the device that was placed. He was then told to call his primary care provider. He called his PCP who then referred him to the emergency room for evaluation. The patient states that overall he is essentially back to normal at this point. He does note that he chronically has left-sided weakness and numbness; however during that episode , his symptoms were dramatically worse and they were even at its worst time when his symptoms are flaring up ordinarily. The patient noted that his left foot was dragging as he was trying to walk through [facility]. The patient had no other symptoms at that time. PAST MEDICAL HISTORY: 1. Chronic back pain. 2. Hypertension. 3. Type 2 diabetes. 4. Intermittent asthma. PAST SURGICAL HISTORY: 1. Dorsal column stimulator insertion, June 2017. 2. Diskectomy, July 2016. 3. Laminectomy, 2012. 4. Hemilaminectomy, 2009. MEDICATIONS: 1. Percocet 5/325 one tab p.o. q.6 hours p.r.n. pain. 2. Metformin 500 mg p.o. b.i.d. 3. Zofran 4 mg p.o. q.6 hours p.r.n. nausea. 4. Ibuprofen 200 mg p.o. q.6 hours p.r.n. pain. 5. Hydrochlorothiazide 25 mg p.o. daily. 6. Diazepam 5 mg p.o. q.12 hours p.r.n. anxiety/spasm. 7. Robaxin 500 mg p.o. 4 times daily p.r.n. spasm. ALLERGIES: PENICILLIN. FAMILY HISTORY: Mom is living. She is 74. She has complications related to drinking and smoking since being a teenager. Dad is living. He is 73. He has a history of IN x2. SOCIAL HISTORY: The patient is a nonsmoker. He does not drink. 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 He is . He has 4 children. His , Macie, is his healthcare proxy. REVIEW OF SYSTEMS: A complete 11-system review of systems is obtained. Pertinent positives and negatives are as per HPI and otherwise negative except he does state that he feels anxious today. PHYSICAL EXAMINATION GENERAL: The patient is a well-developed, morbidly obese, middle aged male, seen sitting up in the stretcher, in no acute distress. VITAL SIGNS: Blood pressure 121/77, pulse 86, respirations 17, temp 97.1, O2 sat 96% on room air. HEENT: Pupils are equal. They are round. They react to light. Extraocular muscles are intact. Oropharynx is clear. Oral mucosa is moist. There is no submandibular, cervical or supraclavicular adenopathy. Thyroid is not enlarged. No thyroid nodules are noted. PULMONARY: Lungs are clear to auscultation bilaterally. CARDIAC: Normal S1, S2. Regular rate and rhythm. I do not appreciate any murmurs. There is no lower extremity edema. ABDOMEN: Bowel sounds are present. Abdomen is soft, nontender, nondistended. Abdomen is obese. MUSCULOSKELETAL: There is no cyanosis or clubbing of the digits. There is full active range of motion of all 4 extremities though bilateral lower extremity range of motion is slightly limited due to back pain. SKIN: Warm and dry. There are no rashes. The patient's lower thoracic incision is healing well. There is no surrounding erythema. There is no drainage. NEUROLOGIC: Cranial nerves II through XII are grossly intact. Sensation is intact to light touch throughout though slightly decreased on the left, which the patient states is chronic. Strength is 5/5 and symmetric in the upper extremities. 5/5 strength in the right lower extremity, 4+/5 strength in the left lower extremity. PSYCH: The patient is alert. He is oriented x3. Affect appears appropriate. LABORATORY DATA: WBC 5.2, hemoglobin 15.6, hematocrit 44, platelets 172. INR 1.0. Sodium 137, potassium 3.5, chloride 100, CO2 31, BUN 15, creatinine 0.91. Glucose 168, lactic acid 1.2. Calcium 9.5. Bilirubin 0.4, AST 18, ALT 39, alk phos 58. Troponin 0. Albumin 3.9. CT of the brain: normal CT of the brain. CTA head and neck: no CT angiographic abnormalities noted of the right carotid, left carotid, middle cerebral arteries, vertebral arteries, basilar artery, posterior cerebral arteries and the [place] of [place]. EKG, normal sinus rhythm without any acute ST or T wave abnormalities. ASSESSMENT AND PLAN: Mr. Slaughter is a 47-year-old male who has a history of hypertension, type 2 diabetes and chronic back pain with chronic left-sided weakness and mild numbness, who presents to the emergency room after having an episode of increased weakness, numbness/tingling of the left face, arm and legs as well as slurred speech that lasted for approximately 1 to 2 hours on the day prior. 1. Possible transient ischemic attack. The patient states that chronically he has left lower extremity weakness and numbness; however, he did have numbness and tingling of the left face and left arm with episode the day prior to admission. This makes me concerned the patient may have in fact had a transient ischemic attack. He is not on aspirin and therefore, I will go ahead and give 325 mg of aspirin now, followed by 81 mg daily. I will obtain a lipid profile tomorrow morning and add a hemoglobin A1c to the labs drawn in the emergency room. We will aim for good blood sugar control, hypertension control, and lipid control. A Neurology consultation will be requested. The patient was already run by Dr. Goodson. The patient will have neuro checks q.4 hours. An MRI is not possible at this point due to the newly placed dorsal column stimulator. A transesophageal echocardiogram should be obtained to complete the workup; however, as it is Friday, this likely can be performed next week as an outpatient. 2. Hypertension. Currently, the patient's blood pressure is under excellent control. I will continue his hydrochlorothiazide at 25 mg daily. 3. Type 2 diabetes. The patient's metformin will be held for 48 hours given the CTA of the head and neck. He will be placed on a lispro sliding scale q.a.c. As above, hemoglobin A1c will be obtained. 4. Chronic back pain. The patient will be continued on his usual home medications regimen of diazepam p.r.n., ibuprofen p.r.n., Robaxin p.r.n. and Percocet p.r.n. 5. DVT prophylaxis. According to the Adult Thrombosis Prophylaxis Risk Factor Assessment Guide, the patient has a total risk factor score of 2 making him moderate risk. He will be placed on heparin 5000 units subcutaneous q.12 hours. 6. Code status is full. TIME SPENT: 65 minutes were spent admitting this patient. [id number]/CPS #: [id number] [id number]
[2017-07-26] MEDS: Aspirin EC Low Dose* 81 MG TAB.EC PO SCH (08:48)
[2017-07-26] MEDS: Hydrochlorothiazide TAB* 25 MG PO SCH (08:48)
[2017-07-26] MEDS: Methocarbamol TAB* 500 MG PO PRN (08:49)
[2017-07-26] MEDS: Heparin VIAL(*) 5000 UNITS/ML VIAL (FIVE THOUSAND) SUBCUT SCH ×2 (08:50→20:40)
[2017-07-26] MEDS: Insulin LISPRO* 1 UNITS UNIT SUBCUT SCH ×3 (08:50→17:05)
--- NOTE | 2017-07-26 12:04 | PN ---
Subjective Date of Service: 07/26/17 Interval History: Mr. Slaughter is a 47 yo male who presented to the ED with concern for increased left sided weakness and numbness of left face/arm/leg; these symptoms have since resolved but he was referred to the ED by his PCP with concern for CVA/ TIA. Currently he is sitting up eating lunch, denies any weakness/numbness, CP, SOB or other acute complaint. He wants to go home as soon as possible. Discussed his A1c and lipid profile; he states that his PCP is following the A1c and feels the A1c may be elevated from previous steroid treatment of chronic pain. Plan for patient to continue f/u with PCP to monitor BG. He also would like to discuss starting a statin with his PCP; we discussed dietary modification to help lower his lipids and LDLs. Telemetry: SR [id number] Family History: Unchanged from Admission Social History: Unchanged from Admission Past Medical History: Unchanged from Admission Objective Active Medications: Acetaminophen (Tylenol Tab*) 650 mg PO Q4H PRN PRN Reason: PAIN Aspirin (Aspirin Ec Low Dose*) 81 mg PO DAILY [facility] Last Admin: 07/26/17 08:48 Dose: 81 mg Dextrose (D50w Syringe 50 Ml*) 12.5 gm IV PUSH .FOR FS < 60 - SS PRN PRN Reason: FS < 60 Diazepam (Valium Tab(*)) 5 mg PO Q12HR PRN PRN Reason: ANXIETY Heparin Sodium (Porcine) (Heparin Vial(*)) 5,000 units SUBCUT Q12HR [facility] Last Admin: 07/26/17 08:50 Dose: 5,000 units Hydrochlorothiazide (Hydrodiuril Tab*) 25 mg PO DAILY [facility] Last Admin: 07/26/17 08:48 Dose: 25 mg Ibuprofen (Advil Tab*) 200 mg PO Q6H PRN PRN Reason: FEVER/PAIN Insulin Human Lispro (Humalog*) 0 units SUBCUT AC [facility] PRN Reason: Protocol Last Admin: 07/26/17 08:50 Dose: 3 units Methocarbamol (Robaxin Tab*) 500 mg PO QID PRN PRN Reason: PAIN Last Admin: 07/26/17 08:49 Dose: 500 mg Ondansetron HCl (Zofran Inj*) 4 mg IV Q6H PRN PRN Reason: NAUSEA Ondansetron HCl (Zofran Tab*) 4 mg PO Q6H PRN PRN Reason: NAUSEA/VOMITING Oxycodone/Acetaminophen (Percocet 5/325 Tab*) 1 tab PO Q6H PRN PRN Reason: PAIN Vital Signs - 8 hr 07/26/17 07/26/17 07/26/17 04:41 07:42 08:49 Temperature 98.4 F 97.5 F Pulse Rate 81 84 Respiratory 20 16 18 Rate Blood Pressure 126/84 146/93 (mmHg) O2 Sat by Pulse 94 94 Oximetry Oxygen Devices in Use Now: None Appearance: Male patient, sitting up, NAD Eyes: No Scleral Icterus, PERRLA Ears/Nose/Mouth/Throat: Clear Oropharnyx, Mucous Membranes Moist Neck: NL Appearance and Movements; NL JVP Respiratory: Symmetrical Chest Expansion and Respiratory Effort, Clear to Auscultation Cardiovascular: NL Sounds; No Murmurs; No JVD, RRR Abdominal: NL Sounds; No Tenderness; No Distention Extremities: No Edema, No Clubbing, Cyanosis Neurological: Alert and Oriented x 3, NL Muscle Strength and Tone Lines/Tubes/Other Access: Clean, Dry and Intact Peripheral IV Nutrition: Taking PO's Result Diagrams: 07/25/17 16:15 07/25/17 16:15 Additional Lab and Data: Lab Results 07/25/17 07/25/17 07/25/17 Range/Units 16:15 16:15 16:15 WBC 5.2 (3.5-10.8) 10^3/ul RBC 4.97 (4.0-5.4) 10^6/ul Hgb 15.6 (14.0-18.0) g/dl Hct 44 (42-52) % MCV 89 (80-94) fL MCH 31 (27-31) pg MCHC 35 (31-36) g/dl RDW 12 (10.5-15) % Plt Count 172 (150-450) 10^3/ul MPV 9 (7.4-10.4) um3 Neut % (Auto) 53.4 (38-83) % Lymph % (Auto) 31.2 (25-47) % [place] % (Auto) 9.8 H (1-9) % Eos % (Auto) 4.4 (0-6) % Baso % (Auto) 1.2 (0-2) % Absolute Neuts (auto) 2.8 (1.5-7.7) 10^3/ul Absolute Lymphs (auto) 1.6 (1.0-4.8) 10^3/ul Absolute Monos (auto) 0.5 (0-0.8) 10^3/ul Absolute Eos (auto) 0.2 (0-0.6) 10^3/ul Absolute Basos (auto) 0.1 (0-0.2) 10^3/ul Absolute Nucleated RBC 0 10^3/ul Nucleated RBC % 0 INR (Anticoag Therapy) 1.00 (0.77-1.02) APTT 35.2 (26.0-36.3) seconds Sodium 137 (133-145) mmol/L Potassium 3.5 (3.5-5.0) mmol/L Chloride 100 L (101-111) mmol/L Carbon Dioxide 31 (22-32) mmol/L Anion Gap 6 (2-11) mmol/L BUN 15 (6-24) mg/dL Creatinine 0.91 (0.67-1.17) mg/dL Est GFR ( Amer) 115.9 (>60) Est GFR (Non-Af Amer) 90.1 (>60) BUN/Creatinine Ratio 16.5 (8-20) Glucose 168 H (70-100) mg/dL Lactic Acid (0.5-2.0) mmol/L Calcium 9.5 (8.6-10.3) mg/dL Total Bilirubin 0.40 (0.2-1.0) mg/dL AST 18 (13-39) U/L ALT 39 (7-52) U/L Alkaline Phosphatase 58 (34-104) U/L Troponin I 0.00 (<0.04) ng/mL Total Protein 6.2 L (6.4-8.9) g/dL Albumin 3.9 (3.2-5.2) g/dL Globulin 2.3 (2-4) g/dL Albumin/Globulin Ratio 1.7 (1-3) 07/25/17 Range/Units 16:15 WBC (3.5-10.8) 10^3/ul RBC (4.0-5.4) 10^6/ul Hgb (14.0-18.0) g/dl Hct (42-52) % MCV (80-94) fL MCH (27-31) pg MCHC (31-36) g/dl RDW (10.5-15) % Plt Count (150-450) 10^3/ul MPV (7.4-10.4) um3 Neut % (Auto) (38-83) % Lymph % (Auto) (25-47) % [place] % (Auto) (1-9) % Eos % (Auto) (0-6) % Baso % (Auto) (0-2) % Absolute Neuts (auto) (1.5-7.7) 10^3/ul Absolute Lymphs (auto) (1.0-4.8) 10^3/ul Absolute Monos (auto) (0-0.8) 10^3/ul Absolute Eos (auto) (0-0.6) 10^3/ul Absolute Basos (auto) (0-0.2) 10^3/ul Absolute Nucleated RBC 10^3/ul Nucleated RBC % INR (Anticoag Therapy) (0.77-1.02) APTT (26.0-36.3) seconds Sodium (133-145) mmol/L Potassium (3.5-5.0) mmol/L Chloride (101-111) mmol/L Carbon Dioxide (22-32) mmol/L Anion Gap (2-11) mmol/L BUN (6-24) mg/dL Creatinine (0.67-1.17) mg/dL Est GFR ( Amer) (>60) Est GFR (Non-Af Amer) (>60) BUN/Creatinine Ratio (8-20) Glucose (70-100) mg/dL Lactic Acid 1.2 (0.5-2.0) mmol/L Calcium (8.6-10.3) mg/dL Total Bilirubin (0.2-1.0) mg/dL AST (13-39) U/L ALT (7-52) U/L Alkaline Phosphatase (34-104) U/L Troponin I (<0.04) ng/mL Total Protein (6.4-8.9) g/dL Albumin (3.2-5.2) g/dL Globulin (2-4) g/dL Albumin/Globulin Ratio (1-3) Assess/Plan/Problems-Billing Assessment: Mr. Slaughter is a 47 yo male with a PMH significant for DM2, HTN, and chronic back pain with chronic left sided weakness/numbness who presented to the ED on06/30 with concern for a transient episode of increased weakness, numbness and tingling to left face/arm/legs, and slurred speech that lasted for 1-2 hours on 07/24/17. - Patient Problems (1) TIA (transient ischemic attack) Comment: Suspected, given patient's story of worsening left sided weakness/numbness and slurred speech. Appreciate neurology input; patient should continue outpatient neuro follow-up Inpatient hypercoaguability workup per neuro Continue ASA Elevated trigylcerides, LDLs - plan to start statin, but patient would like to hold on this and discuss with PCP. Unable to check MRI as patient has new dorsal column stimulator Recheck CT brain, plan for TTE with bubble. Recommended to have LOLA as outpatient. Initial CT brain negative for acute pathology. CTA head/neck shows no focal abnormalities or the brain or mass/adenopathy of the neck. (2) HTN (hypertension) Code(s): I10 - ESSENTIAL (PRIMARY) HYPERTENSION Comment: Normotensive, good control Continue home HCTZ. (3) Type 2 diabetes mellitus Comment: HgbA1c 8.1 Continue to hold metformin x 48 hours after CTA Continue Lispro SSI Patient could benefit from increased metformin dose and diabetic education upon discharge for better glucose control. Will refer patient for outpatient follow-up with [facility]. (4) Chronic back pain Code(s): M54.9 - DORSALGIA, UNSPECIFIED; G89.29 - OTHER CHRONIC PAIN Comment: Stable Continue home prn medications of diazepam, ibuprofen, Percocet, and Robaxin. (5) DVT prophylaxis Comment: SQ heparin Status and Disposition: OBV admit. D/c to home when medically stable.
--- NOTE | 2017-07-26 16:29 | RAD ---
Indication: Stroke. CT of the brain was performed without IV contrast. Ventricular structures are midline. No midline shift is noted. The extraction spaces are unremarkable. There is no evidence of intracranial mass or hemorrhage. No other high or low density lesions are identified. Mastoid air cells and paranasal sinuses are otherwise unremarkable. No changes noted since July 25, 2017. IMPRESSION: No intracranial mass or hemorrhage is noted.
--- NOTE | 2017-07-26 22:22 | CONS ---
CONSULTATION REPORT: DATE OF CONSULT: 07/26/17 PRIMARY CARE PROVIDER: Dr. Benitez. HOSPITALIST: Dr. Tammy Sawant. PRIOR NEUROSURGEON: Dr. Ford. REASON FOR CONSULT: Chronic back pain and left-sided weakness and numbness. HISTORY OF PRESENT ILLNESS: Mr. Slaughter is a very nice 49-year-old gentleman who has a history of asthma, hypertension, type 2 diabetes and chronic back pain. He states that the diabetes was diagnosed several months ago prior to his surgery. On 06/24/17, he underwent dorsal column stimulator for his chronic back pain. He states that he has had multiple back surgeries in the past in 2009, 2012 and 2017. He has done well with his pain stimulator. He states that he has been talking with the stimulator company and they have been increasing his stimulation over the last month. He was in his usual state of health 2 days ago. On 07/24/17, he was in [facility] and he noted that he had what he felt was a severe back spasm with some leg weakness. He states at the same time , he developed some numbness and tingling in his left arm and his face. His also reported that she thought he was slurring his speech, but he denies any facial droop. He states that the initial symptoms lasted about 20 minutes. He was able to "walk it off," but then subsequently had a return of symptoms which ultimately lasted 2 to 3 hours and resolved after he went home and lied down. Initially, he tried to contact the dorsal column stimulator company, finally getting through with them. They stated that this was likely not related to the stimulator and that he should see his primary care provider which he saw the next day, who sent him to the ER for further evaluation. He has had no further symptoms although he continues to have some what he says is weakness in his left leg and arm. He does have chronic weakness in his left leg and feels that it is at baseline. He states that the arm and hand weakness is new. He denies any facial tingling or weakness, does have some mild tingling in his left upper arm. He has developed no right-sided symptoms. He denies any chest pain or jaw claudication. He has never had any similar symptoms. There is a family history of stroke in his paternal uncle and his father apparently had a heart attack, unknown age after returning from [place]. There is no hypercoagulable history in the family. His mother had no miscarriages. There is no history of bleeding disorders that he is aware of. He was not previously on an aspirin prior to this. Since the event, he notes that his left foot has been dragging more. He denies any problem swallowing or speaking. He denies any vision changes. He denies any headache and is otherwise in his usual state of health. Yesterday in the ER, he did have a CT of the brain done, which showed no abnormalities and appears normal to me on my read. He had a CT angiogram of the head and neck, which showed no vascular abnormalities. I did speak with the ER doctor who checked in to getting an MRI, but he was unable to have an MRI due to his stimulator. He was admitted for further stroke workup. PAST MEDICAL HISTORY: As noted above. PAST SURGICAL HISTORY: Hemilaminectomy in 2009, laminectomy in 2012, diskectomy in July 2016 and dorsal column stimulator in 06/24/17. HOME MEDICATIONS: Include: 1. Percocet 5/325. 2. Glucophage 500 mg b.i.d. 3. Zofran p.r.n. 4. Ibuprofen p.r.n. 5. Hydrochlorothiazide 25 mg daily. 6. Diazepam 5 mg p.r.n. 7. Methocarbamol 500 mg 4 times a day p.r.n. INPATIENT MEDICATIONS: 1. Tylenol 650 mg q.4 hour. 2. Aspirin 81 mg daily. 3. Diazepam 5 mg p.r.n.. 4. Heparin DVT prophylaxis. 5. Hydrochlorothiazide 25 mg daily. 6. Ibuprofen 200 mg p.o. q.6 hours p.r.n. 7. Insulin. 8. Methocarbamol 500 mg p.o. 4 times a day p.r.n. 9. Zofran p.r.n. 10. Percocet 5/325 one tablet q.6 hours p.r.n. 11. He did receive an aspirin 325 mg yesterday in the ER. ALLERGIES: To PENICILLIN. FAMILY HISTORY: Significant for father with coronary artery disease and an uncle with stroke. Mom has history with drinking. SOCIAL HISTORY: He denies tobacco, alcohol or drug use. Formerly a banker. Now disabled. , has 4 children. REVIEW OF SYSTEMS: His review of systems in 14-organ systems as noted above. Otherwise negative. PHYSICAL EXAM: In general, he is a well nourished, well developed gentleman, sitting the side of his hospital bed. He is pleasant, well dressed, well groomed. HEENT: Normocephalic, atraumatic. Sclerae anicteric. Mucous membranes are moist. Oropharynx is clear. Nares are patent. Neck is supple. No thyromegaly, no carotid bruits. No meningismus. Chest: Clear to auscultation bilaterally. Cardiovascular: Regular rate and rhythm. Abdomen: Nontender, nondistended. Extremities: No clubbing, cyanosis or edema. Skin is warm and dry without lesions. Neurologic Exam: He is awake, alert, oriented x3. His speech is fluent. There is no dysarthria. Repetition is intact. Recall of recent and remote events is intact. Vocabulary is intact. His mood is dysthymic. Affect and mood congruent. Cranial nerves II through XII: Pupils equal, round and reactive to light. Extraocular muscles were intact. Visual potter are full to confrontation. Face is symmetric. Facial sensation is intact to light touch bilaterally. Hearing is intact bilaterally. Tongue is midline. Palate raises symmetrically. Shoulder shrug and sternocleidomastoid are normal. Motor Exam: Spontaneously moving all extremities anti-gravity, tone and bulk are both normal. His right upper and lower extremities are 5/5 throughout. The left upper extremity proximally is 4+ /5. Distally is 4+/5. Left lower extremity proximally is 4/[address] , distally 4+/5. DTRs are 1+ and symmetric in the ankles and patella bilaterally. Downgoing Babinski's. In the upper extremities, 2+ bilaterally at the biceps, triceps, brachioradialis. Laessa-cd-anlk and rapid alternating movements are intact. Gait is antalgic. He circumducts his left leg. Sensation, he has decreased all modalities in the left leg in a patchy distribution with some paraesthesia in the left lateral leg. DIAGNOSTIC STUDIES/LAB DATA: Includes a CBC with diff was essentially normal and INR of 1.0. PTT of 35.2. Complete metabolic profile with chloride of 100, glucose of 168, hemoglobin A1c of 8.1, repeat glucose of 170, total protein of 6.2. Triglycerides of 208. Cholesterol of 138, LDL of 75, HDL of 21.7. Imaging and studies as noted above. Echocardiogram is pending. Repeat CT scan is pending. ASSESSMENT AND PLAN: Mr. Slaughter is a 47-year-old gentleman with a history of chronic back pain, history of type 2 diabetes, history of hypertension, who recently underwent a procedure to place a dorsal column stimulator for chronic back pain, has history of multiple back surgeries with chronic weakness and sensation changes in his left lower extremity, presented to the hospital yesterday after developing numbness, worsening weakness in the left leg and some numbness and tingling in the left face and arm the day prior on the . At the time he presented to the hospital, his symptoms had largely resolved, although he continued to have some mild tingling in his left arm, what he felt was some weakness in his left hand and arm and felt that his left leg was baseline. He no longer had anymore facial numbness or tingling. He has no prior history of strokes. There is no family history of strokes. There is no family history of hypercoagulable state. He does have risk factors. He was admitted to the hospital with a negative CT scan of the head, unable to get an MRI. The plan is to repeat the CT of the head to look for any evolving stroke although when the CT of the head was done yesterday, he was well over 24 hours out. Obviously, not a tPA candidate. The CT angiogram shows no evidence of significant carotid, vertebral or intracerebral artery disease. Transthoracic echocardiogram is planned and I would recommend getting a transesophageal echocardiogram as an outpatient given his young age. I do not think he needs to stay in the hospital for that. I am going to check a hypercoagulable panel as well to look for any other causes of stroke in a young. We will continue his aspirin 81 mg daily. His cholesterol, his LDL was 75, was good given his polypharmacy. I do not know that we need to start a statin at this time. He needs to strive for tight control of his diabetes and hypertension overtime to help lower the risk of heart attack and stroke. DISPOSITION: Likely home tomorrow if his studies are normal. The plan will be to get an outpatient transesophageal echocardiogram as well as a followup with me. I will continue to follow him closely. Thank you for the opportunity to participate in his care. [id number]/CPS #: [id number] SAMMY
[2017-07-27] MEDS: Heparin VIAL(*) 5000 UNITS/ML VIAL (FIVE THOUSAND) SUBCUT SCH (08:05)
[2017-07-27] MEDS: Aspirin EC Low Dose* 81 MG TAB.EC PO SCH (08:05)
[2017-07-27] MEDS: Hydrochlorothiazide TAB* 25 MG PO SCH (08:05)
[2017-07-27] MEDS: Insulin LISPRO* 1 UNITS UNIT SUBCUT SCH ×2 (08:05→12:08)
[2017-07-27] MEDS ORDERED: Perflutren Lipid Microsphere* 3 ML VIAL ONE (11:36)
[2017-07-27 12:49] VITALS: BP 131/89
--- NOTE | 2017-07-27 14:22 | ECHO ---
Patient: DORCAS MAO [facility] Rec#: [id number] : 1970 Date: 07/27/2017 Age: 47y Height: 180.3 cm / 71.0 in Weight: 126.6 kg / 279.0 lbs Sex: M BSA: 2.4 Room#: [facility] Admit Date#: 07/25/2017 Type: Inpatient Referring: Aby Arteaga DO Reading: Ray Rosas MD Duplicating Machine Mechanic: Maile Crabtree RN RDCS CC: Rajendra Benitez Transthoracic Echocardiogram Indication: TIA BP: 134/90 HR: 81 Rhythm: NSR Findings History: HTN, DM, intermittent asthma, chronic back pain, chronic left-sided weakness and numbness Technical Comments: The study is technically limited due to patient body habitus. Completed at 1215. Left Ventricle: The left ventricular chamber size is normal. Mild concentric left ventricular hypertrophy is observed. Global left ventricular wall motion and contractility are within normal limits. There is normal left ventricular systolic function. The estimated ejection fraction is 55-60%. There is an E to A reversal in the mitral valve flow pattern suggestive of diastolic dysfunction. Left Atrium: The left atrial chamber size is normal. Right Ventricle: The right ventricular chamber size and systolic function are within normal limits. Right Atrium: The right atrial cavity size is normal. The bubble study is negative. A patent foramen ovale is not demonstrated with color Doppler and agitated contrast. Aortic Valve: The aortic valve is trileaflet. The aortic valve leaflets are mildly thickened. There is no evidence of aortic regurgitation. There is no evidence of aortic stenosis. Mitral Valve: The mitral valve leaflets are mildly thickened. There is a trace of mitral regurgitation. Tricuspid Valve: The tricuspid valve leaflets are normal. There is trace tricuspid regurgitation. Unable to estimate the right ventricular systolic pressure. Pulmonic Valve: The pulmonic valve appears normal. There is a trace pulmonic regurgitation. There is no pulmonic stenosis. Pericardium: There is no significant pericardial effusion. A pericardial fat pad is visualized. Aorta: There is mild dilatation of the ascending aorta. There is no dilatation of the aortic arch. There is no dilation of the aortic root. Pulmonary Artery: The main pulmonary artery is not well visualized. Venous: The inferior vena cava appears normal in size. There is an approximate 50% respiratory change in the inferior vena cava dimension. Contrast: Normal saline was used as contrast for the bubble study. Images 101 and 102. Definity was used to enhance endocardial border definition. A total of 4 ml of diluted Definity was given IV. Conclusions There is normal left ventricular systolic function. The estimated ejection fraction is 55-60%. Global left ventricular wall motion and contractility are within normal limits. Mild concentric left ventricular hypertrophy is observed. There is an E to A reversal in the mitral valve flow pattern suggestive of diastolic dysfunction. Normal cardiac chamber sizes. Functionally benign heart valves. A patent foramen ovale is not demonstrated with color Doppler nor agitated contrast. There is mild dilatation of the ascending aorta. There is no prior echocardiogram available to compare with at this time. Measurements Name Value Normal Range RVDdMajor (2D) 3.8 cm (2.2 - 4.4) RAd ISD 4CH 4.3 cm (3.4 - 4.9) RA (A4C)W 3.3 cm (2.9 - 4.6) IVSd (2D) 1.2 cm (0.6 - 1) LVPWd (2D) 1.2 cm (0.6 - 1) LVIDd (2D) 4.6 cm (3.6 - 5.4) LVIDs (2D) 3.3 cm - LV FS (2D) 27 % (25 - 45) Aortic Annulus 2.4 cm (1.4 - 2.6) Ao root diameter (2D) 3.5 cm (2.1 - 3.5) Ascending Ao 3.6 cm (2.1 - 3.4) Aortic arch 2.8 cm (1.8 - 3.4) LA dimension (AP) 2D 3.3 cm (2.3 - 3.8) LAd ISD 4CH 4.3 cm (2.9 - 5.3) LA ISD 4CH W 3.3 cm (2.5 - 4.5) Name Value Normal Range LA ESV SP 4CH (A/L) 29 ml - LA ESV SP 2CH (A/L) 42 ml - LA ESV BP (A/L) 36 ml - LA ESV BP (A/L) index 14.7 ml/m2 - LA ESV SP 4CH (MOD) 26 ml - LA ESV SP 2CH (MOD) 41 ml - Name Value Normal Range MV E-wave Vmax 0.48 m/sec - MV deceleration time 259 msec - MV A-wave Vmax 0.68 m/sec - MV E:A ratio 0.7 ratio - LV septal e' Vmax 0.06 m/sec - LV lateral e' Vmax 0.07 m/sec - LV E:e' septal ratio 8 ratio - LV E:e' lateral ratio 6.9 ratio - Name Value Normal Range AV Vmax 0.98 m/sec - AV VTI 16.5 cm - AV peak gradient 3.8 mmHg - AV mean gradient 2.4 mmHg - LVOT Vmax 0.86 m/sec - LVOT VTI 15.1 cm - LVOT peak gradient 3 mmHg - LVOT mean gradient 1.6 mmHg - TREVER Vmax 0.84 m/sec - Name Value Normal Range IVC diameter 1.7 cm - Name Value Normal Range PV Vmax 0.69 m/sec -
--- NOTE | 2017-07-28 11:02 | DS ---
CC: Dr. Benitez; Dr. Charly Goodson; Neurology; Dr. Ford * MEDICINE DISCHARGE SUMMARY: DATE OF ADMISSION: 07/25/17 DATE OF DISCHARGE: 07/27/17 PROVIDER: Gumaro Tafoya NP ATTENDING PHYSICIAN: Dr. Tammy Sawant * (as dictated by Gumaro Tafoya NP). CONSULTING PROVIDER: Dr. Charly Goodson, Neurology. PRIMARY CARE PROVIDER: Dr. Benitez. PRIMARY NEUROSURGEON: Dr. Ford. PRIMARY DISCHARGE DIAGNOSES: 1. Left-sided weakness and numbness worsened from baseline and slurred speech with suspected transient ischemic attack. 2. Type 2 diabetes with hemoglobin A1c 8.1. 3. Hyperlipidemia. SECONDARY DISCHARGE DIAGNOSES: 1. Hypertension. 2. Type 2 diabetes. 3. Chronic back pain, status post dorsal column stimulator. 4. Intermittent asthma. MEDICATIONS AT DISCHARGE: 1. Aspirin 81 mg daily; this is a new medication. 2. Percocet 5/325 one tab q.6 hours p.r.n. 3. Metformin 500 mg b.i.d. 4. Zofran 4 mg q.6 hours p.r.n. 5. Ibuprofen 200 mg q.6 hours p.r.n. 6. Hydrochlorothiazide 25 mg daily. 7. Diazepam 5 mg q.12 hours p.r.n. 8. Robaxin 500 mg 4 times a day p.r.n. Please note the patient's metformin is to be resumed on 07/28/17, which will give him 48 hours after receiving CTA contrast. HOSPITAL COURSE OF STAY: For whole details, please refer to the H and P provided by Dr. Arteaga on admission. In summary, this is a 47-year-old male, who presented to the emergency room with complaints of increased left-sided weakness and numbness on the day prior to admission. He noted having a severe back spasm while out shopping and then noticed left leg numbness followed by left arm and left face tingling. His felt his speech was somewhat slurred. These symptoms lasted for approximately 1 to 2 hours and they resolved after lying down. He called his primary care provider, who referred him to the emergency room for evaluation. He was admitted under observation, was concerned for potential transient ischemic attack. Because of his newly placed dorsal column stimulator, we were unable to get an MRI. However, he had 2 CT scans of the brain, which did not show any acute pathology or any subacute pathology. He was seen in consultation by Neurology, who recommended that he continue follow up with Neurology as an outpatient, which would also include a LOLA and hypercoagulable workup. The patient had labs drawn before the hypercoagulable workup here in the hospital and those labs are pending. He did have a transthoracic echocardiogram, which showed normal left ventricular systolic function and EF of 55% to 60%. The patient does have mild concentric left ventricular hypertrophy and E to A reversal in mitral valve flow pattern suggestive of diastolic dysfunction. There were normal cardiac chamber sizes. Functionally, benign heart valves. A patent foramen ovale was not demonstrated with color Doppler nor agitated contrast. There is mild dilatation in the ascending aorta. CTA of the head and neck also was unremarkable for any acute pathology. The patient's A1c was noted to be 8.1 and this had been previously checked by his primary care provider 1 month earlier in June where it was 8.2. The patient states that he was recently on steroid therapy, and it was felt that his A1c is likely reflective of that. His PCP is following that with him. I do also note that his triglycerides are 208 and LDL 75. We discussed dietary modification as opposed to statin therapy at this time. The patient has been referred to [facility] for further nutritional counseling. He has had no recurrence of the symptoms here in the hospital. He has been eager to go home. His neurological exam has remained consistent with no focal deficits or slurred speech noted. PHYSICAL EXAMINATION: General: This is a well-developed, well-nourished male patient, who is ambulatory in the room, in no acute distress. HEENT: Head is atraumatic, normocephalic. Face is symmetrical. Pupils are equal, round, and reactive to light. Extraocular movements are intact. Oral mucosa is moist. Neck is supple. No lymphadenopathy appreciated. No JVD noted. Chest: Lungs are clear to auscultation bilaterally. Cardiac: Regular rate and rhythm. No murmurs, rubs, or gallops. There is no peripheral edema. Abdomen: Soft, nontender, and nondistended. Bowel sounds are normoactive. Musculoskeletal: No clubbing or cyanosis. Skin: Limited assessment, appears warm and dry. Neuro: He is awake, alert, and oriented x3. Speech is clear and fluent. Cranial nerves II through XII are grossly intact. Pupils are equal, round, and reactive to light. Extraocular movements are intact. Strength is 5/5 in the upper and lower extremities. Discharge vital signs: Temperature 97.6, heart rate 94, respiratory rate 16, blood pressure 131/89, and O2 saturation is 96% on room air. OUTPATIENT FOLLOWUP NEEDS: Again, the patient has been instructed to follow up with Dr. Goodson as an outpatient, has been given his phone number to call the office for appointment. He states he will do this Friday. Mr. Slaughter was also advised to call his primary care provider, Dr. Benitez, for followup as well. He will need an outpatient transesophageal echocardiogram per recommendation of Neurology. Again, there is a hypercoagulable workup that is pending and those results can be followed up on in the outpatient setting. He has also been referred to [facility] for further diabetic and low-fat diet teaching in order to help with his risk factors of type 2 diabetes and hyperlipidemia. DIET: Resume consistent carbohydrate, low-fat diet. ACTIVITY: As tolerated. CONDITION: Stable. DISPOSITION: To home. TIME SPENT: Time spent on this discharge was approximately 45 minutes. Again, this is only a brief summary of the patient's hospital course of stay. For full details, please refer to the full medical record. If you have any further questions or need further assistance, please feel free to contact me at . GUMARO TAFOYA NP [id number]/[facility] #: [id number] SAMMY
== END 2017-07-27 15:09 | disposition home or self-care (01) | DRG 47 ==
LOC: ED 15:32 → MEDTELE 19:44 → OBSVTOIN 07-26 16:00
PROVIDERS: ADMIT Hospitalist; ATTEND Internal Medicine
DX: G45.9 Transient cerebral ischemic attack, unspecified (principal); E11.9 Type 2 diabetes mellitus without complications; E78.5 Hyperlipidemia, unspecified; I10 Essential (primary) hypertension; M54.89 Other dorsalgia; J45.20 Mild intermittent asthma, uncomplicated; R53.1 Weakness; Z79.84 Long term (current) use of oral hypoglycemic drugs; Z79.1 Long term (current) use of non-steroidal anti-inflammatories (NSAID); Z79.899 Other long term (current) drug therapy; Z88.0 Allergy status to penicillin; Z81.1 Family history of alcohol abuse and dependence; Z81.2 Family history of tobacco abuse and dependence; Z82.49 Family history of ischemic heart disease and other diseases of the circulatory system
CPT/HCPCS: 36415; 70450; 70496; 70498; 80053; 80061; 81003; 81240; 81241; 82607; 82746; 83036; 83090; 83605; 84484; 85025; 85210; 85230; 85240; 85250; 85300; 85303; 85306; 85307; 85384; 85610; 85613; 85670; 85730; 86147; 93005; 93306; A9270-GY; C8929; J1644; Q9967

== ENCOUNTER 2017-10-25 11:33 | Inpatient (IN) | payer BC ==
[2017-10-25] MEDS ORDERED: NS 0.9% 1000 ML* 1,000 ML IV ONE (12:37)
--- NOTE | 2017-10-25 12:52 | RAD ---
INDICATION: Garbled speech COMPARISON: Most recent CT of the brain is dated July 26, 2017 TECHNIQUE: Contiguous axial sections of the brain were obtained from the skull base to the vertex without contrast. FINDINGS: The ventricles, cisterns and sulci are within normal limits. The davis-white matter differentiation is adequately maintained and there is no sulcal effacement. No significant focal abnormality or mass effect is present. There is no evidence for intracranial hemorrhage. No significant focal osseous abnormality is present. The visualized portion of the paranasal sinuses appear clear. The mastoid air cells are well aerated bilaterally. IMPRESSION: No CT apparent acute intracranial abnormality including acute intracranial hemorrhage or territorial infarction. Negative findings reported to Dr. Troy over the telephone at 1248 hours on October 25, 2017.
[2017-10-25 13:02] LABS: ABS Basophils 0.1 10^3/ul (0-0.2); ABS Eosinophils 0.2 10^3/ul (0-0.6); ABS Lymphocytes 1.3 10^3/ul (1.0-4.8); ABS Monocytes 0.4 10^3/ul (0-0.8); ABS Neutrophils 3.2 10^3/ul (1.5-7.7); ABS Nucleated RBC 0 10^3/ul; Hematocrit 46 % (42-52); Hemoglobin 16.2 g/dl (14.0-18.0); Mean Corpuscular HGB Conc 35 g/dl (31-36); Mean Corpuscular Hemoglobin 31 pg (27-31); Mean Corpuscular Volume 90 fL (80-94); Mean Platelet Volume 8.7 um3 (7.4-10.4); Nucleated Red Blood Cells % 0; Platelet Count 161 10^3/ul (150-450); Red Blood Count 5.17 10^6/ul (4.0-5.4); Red Cell Distribution Width 13 % (10.5-15); White Blood Count 5.2 10^3/ul (3.5-10.8)
--- NOTE | 2017-10-25 13:10 | RAD ---
INDICATION: Garbled speech COMPARISON: Most recent comparison chest x-rays dated June 20, 2017 TECHNIQUE: Single AP portable view of the chest was obtained. FINDINGS: Image quality is compromised due to the relative inferiority of a portable chest x-ray. The heart and mediastinum exhibit normal size and contour. The lungs are grossly clear. There is no evidence of a large pleural effusion. There appears to be interval placement of a thoracic level intrathecal stimulator. IMPRESSION: No radiographic evidence for acute cardiopulmonary abnormality on this portable chest x-ray.
[2017-10-25 13:11] LABS: INR 0.98 (0.77-1.02)
[2017-10-25 13:19] LABS: EGFR Non-African American 109.3 (>60)
[2017-10-25] MEDS ORDERED: Iodixanol* (CONTRAST) 320 MG/ML 100 ML SDV IV ONE (13:57)
[2017-10-25] MEDS ORDERED: Alteplase* 9 MG in PREMIX* 0 ML IV ONE (14:00)
[2017-10-25] MEDS ORDERED: ALTEPLASE IV ONE (14:00)
[2017-10-25] MEDS ORDERED: Alteplase* 100 MG VIAL ONE (14:00)
[2017-10-25 14:27] LABS: Urine Appearance Clear; Urine Blood Negative (Negative); Urine Color Yellow; Urine Ketones Negative (Negative); Urine Protein Negative (Negative); Urine Specific Gravity 1.018 (1.010-1.030); Urine Urobilinogen Negative (Negative)
--- NOTE | 2017-10-25 14:41 | RAD ---
CPT II: CPT II Codes: 3100F INDICATION: Diplopia COMPARISON: Same day CT of the brain that does not show any acute abnormalities as well as a similar CTA of the head and neck dated July 25, 2017 that did not reveal any acute abnormalities TECHNIQUE: A CT angiogram of the head and neck was performed with 80 cc of Visipaque 320. Contiguous axial sections were obtained from the thoracic inlet through the [place] of [place]. Images were reconstructed in the sagittal, coronal planes and in a 3-D volume rendered format. The distal cervical internal carotid artery diameter is used as the denominater for stenosis measurement. CTA NECK: The common and internal carotid arteries are patent without hemodynamically significant stenosis. Right: Just below the bifurcation the common carotid artery measures 7 mm in diameter. Immediately beyond the bifurcation the internal carotid artery also measures 7 mm in diameter yielding 0% degree stenosis. Left: Just below the carotid bifurcation the common carotid artery measures just under 8 mm in diameter. Immediately beyond the bifurcation the left internal carotid artery also measures 8 mm in short axis diameter which yields 0% degree stenosis. CTA of the brain: The internal carotid, anterior and middle cerebral arteries appear are patent without high grade stenosis or occlusion. The proximal portions of the bilateral ophthalmic arteries appear to fill adequately with contrast. The vertebral, basilar and posterior cerebral arteries appear patent without high grade stenosis or occlusion. The ch[place] of [place] is complete with bilateral posterior communicating arteries identified. The vertebral arteries are diminutive bilaterally but appear to retain patency into the intracranial portions. There is some redundancy in the course of the vertebral arteries but in-line flow appears to fill the rather diminutive basilar artery. This appearance is unchanged from the prior CTA. No focal luminal filling defect, aneurysm or vascular malformation is seen. IMPRESSION: 1. Overall normal CT angiography of the head and neck without focal filling defect, acute stenosis or aneurysmal dilatation. 2. The posterior circulation including the vertebral arteries and basilar artery are diminutive but this appearance is unchanged since the prior July 25, 2017 CTA of the head and neck.
[2017-10-25] MEDS ORDERED: Acetaminophen TAB* 325 MG PO PRN (16:33)
[2017-10-25] MEDS ORDERED: Morphine INJ* 2 MG/ML 1 ML CARPUJECT IV PRN (16:33)
[2017-10-25] MEDS ORDERED: Diazepam TAB(*) 5 MG PO PRN (16:37)
[2017-10-25] MEDS ORDERED: Methocarbamol TAB* 500 MG PO PRN (16:37)
[2017-10-25] MEDS ORDERED: oxyCODONE/Acetamin 5/325 MG* TAB PO PRN (16:37)
[2017-10-25] MEDS ORDERED: NS 0.9% 1000 ML* 1,000 ML IV SCH (16:45)
[2017-10-25] MEDS ORDERED: Pantoprazole IV* 40 MG IV ONE (16:54)
--- NOTE | 2017-10-25 18:19 | ED ---
Sedrick, Alexander Trinh, scribed for Howie Troy MD on 10/25/17 at 1250 . HPI Cardiac - HPI Summary HPI Summary: This patient is a 63 year old M presenting to [facility] with a chief complaint of left sided numbness since 11:40 today. He states I have a spinal stimulator installed and the battery started itching. I felt pulses going up and down from the area. With time my told me my speech was slurring. My hands felt funny and feet were going to sleep. I also felt some mild right-sided chest pain and now I feel some left arm and face numbness. My wants you to know that I previously had a transesophageal echocardiogram because of the same symptoms that brought him me here today. Additionally, the patient includes that he had a TIA on July 27. The patient rates the pain 0/10 in severity. Symptoms aggravated by nothing. Symptoms alleviated by nothing. Patient reports back Itching and pulsing, left facial numbness, left arm numbness, left arm and leg weakness. - History of Current Complaint Chief Complaint: EDNeurologicalDeficit Stated Complaint: POSS TIA Time Seen by Provider: 10/25/17 12:28 Hx Obtained From: Patient Timing: Constant Pain Intensity: 0 Pain Scale Used: 0-10 Numeric Chest Pain Location: Right Anterior Associated Signs and Symptoms: Positive: Numbness - left facial, and left arm and leg., Weakness - left arm and left leg - Additional Pertinent History Primary Care Physician: [id number] - Allergy/Home Medications Allergies/Adverse Reactions: Allergies Allergy/AdvReac Type Severity Reaction Status Date / Time Penicillins Allergy Unknown Verified 10/25/17 12:30 Reaction Details Home Medications: Home Medications Atorvastatin* [Lipitor*] 20 mg PO DAILY 10/25/17 [History Confirmed 10/25/17] PMH/Surg Hx/FS Hx/Imm Hx Previously Healthy: No Endocrine/Hematology History: Reports: Hx Diabetes Denies: Hx Thyroid Disease Cardiovascular History: Reports: Hx Hypertension Denies: Hx Pacemaker/ICD Respiratory History: Reports: Hx Asthma - SEASONAL, Hx Seasonal Allergies Denies: Hx Chronic Obstructive Pulmonary Disease (COPD) GI History: Denies: Hx Ulcer History: Denies: Hx Dialysis, Hx Renal Disease Musculoskeletal History: Reports: Hx Arthritis - LOW BACK, Hx Back Problems Sensory History: Reports: Hx Contacts or Glasses - GLASSES Denies: Hx Hearing Aid Opthamlomology History: Reports: Hx Contacts or Glasses - GLASSES Neurological History: Denies: Other Neuro Impairments/Disorders Psychiatric History: Denies: Hx Panic Disorder - Surgical History Surgery Procedure, Year, and Place: 05/2010 DOUBLE SYDNEE - LAMINECTOMY DR. NELSON. 07/[address] NELSON. 07/[address] [place]. 2016 SPINAL STIMULATOR PLACEMENT - AND REMOVAL - LEAD REMOVAL VERIFIED VIA CLEARANCE XRAYS PER DR. CHAN 05.25.2017 Hx Anesthesia Reactions: No - Immunization History Date of Tetanus Vaccine: up to date per pt Infectious Disease History: No Infectious Disease History: Denies: Hx Clostridium Difficile, Hx Hepatitis, Hx Human Immunodeficiency Virus (HIV), Hx of Known/Suspected MRSA, Hx Shingles, Hx Tuberculosis, Hx Known/ Suspected VRE, Hx Known/Suspected VRSA, History Other Infectious Disease, Traveled Outside the [place] in Last 30 Days - Family History Known Family History: Positive: Cardiac Disease, Other - cancer - Social History Alcohol Use: None Alcohol Amount: 1 beer per month Hx Substance Use: No Substance Use Type: Reports: Prescribed Hx Tobacco Use: No Smoking Status (MU): Never Smoked Tobacco Have You Smoked in the Last Year: No Review of Systems Positive: Chest Pain - right sided Positive: Other - "itching and pulsing" Neurological: Other - "slurred speech" Positive: Weakness - left arm and left leg, Numbness - left facial, left arm All Other Systems Reviewed And Are Negative: Yes NIH Scale - NIH Scale Level of Consciousness: Alert/Keenly Responsive Ask Patient the Month and His/Her Age: Both Correct Ask Pt to Open/Close Eyes and Compactor Driver/Release Non-Paretic Hand: Both Correctly Best Gaze (Only Horizontal Eye Movement): Normal Visual Field Testing: No Visual Loss Facial Paresis-Pt to Smile & Close Eyes or Grimace Symmetry: Normal/Symmetrical Motor Function - Right Arm: No Drift-Holds 10 Seconds Motor Function - Left Arm: No Drift-Holds 10 Seconds Motor Function - Right Leg: No Drift-Holds 10 Seconds Motor Function - Left Leg: No Drift-Holds 10 Seconds Limb Ataxia-Must be out of Proportion to Weakness Present: Absent Sensory (Use Pinprick to Test Arms/Legs/Trunk/Face): Pinprick Less on Affected Best Language (Describe Picture, Name Items): No Aphasia Dysarthria (Read Several Words): Normal Extinction and Inattention: No Abnormality Total Score: 1 Physical Exam - Summary Physical Exam Summary: General: well-appearing, no pain distress Skin: warm, color reflects adequate perfusion, dry Head: normal Eyes: EOMI, JALEEL ENT: normal Neck: supple, nontender Respiratory: CTA, breath sounds present Cardiovascular: RRR Abdomen: soft, nontender Bowel: present Musculoskeletal: Decreased sensation in the left side of face and left arm. No difference in drift of the arms but the left hand medical referral coordinator was weaker than the right. No drift in the legs but the left leg is mildly weaker than the right. Otherwise, strength/ROM intact. Neurological: normal, sensory/motor intact, A&O x3 Psychological: affect/mood appropriate Triage Information Reviewed: Yes Vital Signs On Initial Exam: Initial Vitals Temp Pulse Resp BP Pulse Ox 97.4 F 94 20 157/88 95 10/25/17 11:38 10/25/17 11:38 10/25/17 11:38 10/25/17 11:38 10/25/17 11:38 Vital Signs Reviewed: Yes Diagnostics - Vital Signs Vital Signs Temp Pulse Resp BP Pulse Ox 10/25/17 12:28 89 96 10/25/17 12:27 144/83 10/25/17 11:38 97.4 F 94 20 157/88 95 - Laboratory Lab Results: Lab Results 10/25/17 10/25/17 10/25/17 Range/Units 12:52 12:52 12:52 WBC 5.2 (3.5-10.8) 10^3/ul RBC 5.17 (4.0-5.4) 10^6/ul Hgb 16.2 (14.0-18.0) g/dl Hct 46 (42-52) % MCV 90 (80-94) fL MCH 31 (27-31) pg MCHC 35 (31-36) g/dl RDW 13 (10.5-15) % Plt Count 161 (150-450) 10^3/ul MPV 8.7 (7.4-10.4) um3 Neut % (Auto) 61.1 (38-83) % Lymph % (Auto) 26.0 (25-47) % [place] % (Auto) 7.8 H (0-7) % Eos % (Auto) 4.0 (0-6) % Baso % (Auto) 1.1 (0-2) % Absolute Neuts (auto) 3.2 (1.5-7.7) 10^3/ul Absolute Lymphs (auto) 1.3 (1.0-4.8) 10^3/ul Absolute Monos (auto) 0.4 (0-0.8) 10^3/ul Absolute Eos (auto) 0.2 (0-0.6) 10^3/ul Absolute Basos (auto) 0.1 (0-0.2) 10^3/ul Absolute Nucleated RBC 0 10^3/ul Nucleated RBC % 0 INR (Anticoag Therapy) 0.98 (0.77-1.02) APTT 36.1 (26.0-36.3) seconds Sodium 137 L (139-145) mmol/L Potassium 3.9 (3.5-5.0) mmol/L Chloride 104 (101-111) mmol/L Carbon Dioxide 26 (22-32) mmol/L Anion Gap 7 (2-11) mmol/L BUN 15 (6-24) mg/dL Creatinine 0.77 (0.67-1.17) mg/dL Est GFR ( Amer) 140.5 (>60) Est GFR (Non-Af Amer) 109.3 (>60) BUN/Creatinine Ratio 19.5 (8-20) Glucose 195 H (70-100) mg/dL Lactic Acid (0.5-2.0) mmol/L Calcium 9.3 (8.6-10.3) mg/dL Total Bilirubin 0.50 (0.2-1.0) mg/dL AST 13 (13-39) U/L ALT 27 (7-52) U/L Alkaline Phosphatase 66 (34-104) U/L Troponin I 0.00 (<0.04) ng/mL Total Protein 6.6 (6.4-8.9) g/dL Albumin 4.1 (3.2-5.2) g/dL Globulin 2.5 (2-4) g/dL Albumin/Globulin Ratio 1.6 (1-3) Triglycerides 235 mg/dL Cholesterol 95 mg/dL LDL Cholesterol 23 mg/dL HDL Cholesterol 25.3 mg/dL Urine Color Urine Appearance Urine pH (5-9) Ur Specific [place] (1.010-1.030) Urine Protein (Negative) Urine Ketones (Negative) Urine Blood (Negative) Urine Nitrate (Negative) Urine Bilirubin (Negative) Urine Urobilinogen (Negative) Ur Leukocyte Esterase (Negative) Urine Glucose (Negative) Blood Type Antibody Screen 10/25/17 10/25/17 10/25/17 Range/Units 12:52 12:52 14:15 WBC (3.5-10.8) 10^3/ul RBC (4.0-5.4) 10^6/ul Hgb (14.0-18.0) g/dl Hct (42-52) % MCV (80-94) fL MCH (27-31) pg MCHC (31-36) g/dl RDW (10.5-15) % Plt Count (150-450) 10^3/ul MPV (7.4-10.4) um3 Neut % (Auto) (38-83) % Lymph % (Auto) (25-47) % [place] % (Auto) (0-7) % Eos % (Auto) (0-6) % Baso % (Auto) (0-2) % Absolute Neuts (auto) (1.5-7.7) 10^3/ul Absolute Lymphs (auto) (1.0-4.8) 10^3/ul Absolute Monos (auto) (0-0.8) 10^3/ul Absolute Eos (auto) (0-0.6) 10^3/ul Absolute Basos (auto) (0-0.2) 10^3/ul Absolute Nucleated RBC 10^3/ul Nucleated RBC % INR (Anticoag Therapy) (0.77-1.02) APTT (26.0-36.3) seconds Sodium (139-145) mmol/L Potassium (3.5-5.0) mmol/L Chloride (101-111) mmol/L Carbon Dioxide (22-32) mmol/L Anion Gap (2-11) mmol/L BUN (6-24) mg/dL Creatinine (0.67-1.17) mg/dL Est GFR ( Amer) (>60) Est GFR (Non-Af Amer) (>60) BUN/Creatinine Ratio (8-20) Glucose (70-100) mg/dL Lactic Acid 1.2 (0.5-2.0) mmol/L Calcium (8.6-10.3) mg/dL Total Bilirubin (0.2-1.0) mg/dL AST (13-39) U/L ALT (7-52) U/L Alkaline Phosphatase (34-104) U/L Troponin I (<0.04) ng/mL Total Protein (6.4-8.9) g/dL Albumin (3.2-5.2) g/dL Globulin (2-4) g/dL Albumin/Globulin Ratio (1-3) Triglycerides mg/dL Cholesterol mg/dL LDL Cholesterol mg/dL HDL Cholesterol mg/dL Urine Color Yellow Urine Appearance Clear Urine pH 8.0 (5-9) Ur Specific [place] 1.018 (1.010-1.030) Urine Protein Negative (Negative) Urine Ketones Negative (Negative) Urine Blood Negative (Negative) Urine Nitrate Negative (Negative) Urine Bilirubin Negative (Negative) Urine Urobilinogen Negative (Negative) Ur Leukocyte Esterase Negative (Negative) Urine Glucose 3+(>=500 mg/dl) A (Negative) Blood Type B Positive Antibody Screen Negative Result Diagrams: 10/25/17 12:52 10/25/17 12:52 Lab Statement: Any lab studies that have been ordered have been reviewed, and results considered in the medical decision making process. - Radiology CXR Radiology Interpretation Completed By: Radiologist - CXR reveals, per radiologist, No radiographic evidence for acute cardiopulmonary abnormality on this portable chest x-ray. ED physician has reviewed this radiology report. - CT HEAD CTA CT Interpretation Completed By: Radiologist - Head CTA reveals, per radiologist , 1. Overall normal CT angiography of the head and neck without focal filling defect, acute stenosis or aneurysmal dilatation. 2. The posterior circulation including the vertebral arteries and basilar artery are diminutive but this appearance is unchanged since the prior July 25, 2017 CTA of the head and neck. ED physician has reviewed this radiology report. BRAIN CT CT Interpretation Completed By: Radiologist - Brain CT reveals, per radiologist , No CT apparent acute intracranial abnormality including acute intracranial hemorrhage or territorial infarction. ED physician has reviewed this radiology report. - EKG 1253 Cardiac Rate: NL EKG Rhythm: Sinus Rhythm - [address] Segment: Normal Ectopy: None Disposition - Course Course Of Treatment: DISCUSSED WITH NEUROLOGY VIA TELESTROKE AT [facility] AND DR ADAMS. - Diagnoses Provider Diagnoses: CVA (cerebral vascular accident) During the Visit The Following Alert/Code Occurred: Code Mullen - 12:38 - Physician Notifications Discussed Care Of Patient With: Tammy Sawant Time Discussed With Above Provider: 14:58 - Critical Care Time Critical Care Time: 30-74 min Discharge - Sign-Out/Discharge Documenting (check all that apply): Discharge - Discharge Plan Condition: Stable Disposition: ADMITTED TO [facility] - Billing Disposition and Condition Condition: STABLE Disposition: [facility]P-[facility] [place] The documentation as recorded by the Gayathri davis Jason accurately reflects the service I personally performed and the decisions made by , Howie Troy MD.
[2017-10-25] MEDS: NS 0.9% 1000 ML* 1,000 ML IV SCH (19:28)
--- NOTE | 2017-10-25 20:21 | HP ---
CC: Dr. Lisa; Dr. Sommer; Dr. Zuniga; Dr. Benitez * HISTORY AND PHYSICAL: DATE OF ADMISSION: 10/25/17 PRIMARY CARE PROVIDER: Dr. Benitez. CHIEF COMPLAINT: Left-sided numbness and double vision. HISTORY OF PRESENT ILLNESS: Stuart Slaughter is a 47-year-old male with a history of status post dorsal column stimulator implantation in June of 2017 for chronic lower back pain, who presented to the hospital today with complaints of worsening left-sided weakness and diplopia. The patient stated that today he was shopping and he had an itch at the side of the dorsal column stimulator. He scratched the area, subsequently he developed pounding and left-sided weakness that resolved by the time he arrived to the emergency department. The patient stated that his was in different room and when he called his , his described the voice as "it felt like something was in the back of his throat." The patient's stated that the voice was not slurred, but was of a different quality than usual. The patient also stated that he noted double vision when he took his glasses off when he was evaluated by nursing staff in the emergency department. The patient stated that double vision resolved when he put his glasses back on. When I asked him to describe his double vision, he stated that the outline of the person that he saw was not clear and it seemed like there was another person or a shade behind the person. It apparently disappeared when the patient put his glasses back on. The patient was seen by tele neurologist from [facility] in the emergency room and a TPA treatment was administered. Currently, the patient's leg weakness is chronic and back to baseline. He denies any numbness or worsening weakness on the left side. He stated that he still has the same problem with vision that he had before and when he takes his glasses off, the outline of the person he sees is not clear, which I suspect is related to the patient being near sited. The patient is going to be admitted to the intensive care unit for TPA treatment. PAST MEDICAL HISTORY: 1. History of TIA with similar symptoms in July of 2017. 2. Subsequent to the patient's TIA, he had an outpatient transesophageal echocardiogram, which showed intracardiac shunting and possible PFO. 3. History of low antithrombin III level when the patient was evaluated for hypercoagulable syndrome. 4. History of hemilaminectomy in 2012, diskectomy in July of 2016. 5. History of dorsal column stimulator placement on 06/24/17. 6. History of past medical history of hypertension. 7. Diabetes type 2. 8. History of chronic pain. 9. History of anxiety. CURRENT MEDICATIONS: 1. Lipitor 20 mg daily. 2. Aspirin 81 mg daily. 3. Diazepam 5 mg every 12 hours p.r.n. 4. Hydrochlorothiazide 25 mg daily. 5. Ibuprofen 200 mg every 6 hours p.r.n. 6. Robaxin 500 mg up to 4 times a day p.r.n. 7. Metformin 500 mg b.i.d. 8. Percocet 5/325 mg one tablet every 6 hours p.r.n. ALLERGIES: PENICILLIN. FAMILY HISTORY: Father with heart disease and uncle with history of stroke. SOCIAL HISTORY: The patient denies any tobacco, alcohol, or drug use. 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 He lives with his who is his surrogate decision maker. REVIEW OF SYSTEMS: Positive for patient needing to use a cane at baseline due to chronic left leg weakness. Positive for chronic lower back pain. All the remaining 12 systems were reviewed with the patient and were otherwise negative apart from the above mentioned history of present illness. PHYSICAL EXAMINATION GENERAL: The patient is a very pleasant 47-year-old obese male who is in no acute distress. Alert, awake, and oriented x3. VITAL SIGNS: Blood pressure of 135/85, heart rate of 87 and regular, respiratory rate 15, oxygen saturation 95% on room air, temperature 98.4. HEENT: Head: Atraumatic, normocephalic. Eyes: Pupils equal and reactive to light and accommodation. Oropharynx clear. Mucosa moist. NECK: Supple. No JVD. No bruits bilaterally. RESPIRATORY: Clear to auscultation bilaterally. CARDIOVASCULAR: Regular rate and rhythm. No murmur. ABDOMEN: Soft, nontender. Bowel sounds are present in all 4 quadrants. EXTREMITIES: There is no edema. Pulses are +2 bilaterally. No clubbing or cyanosis. NEURO EVALUATION: Speech clear. Cranial nerves II through XII grossly intact. Motor strength is 5/5 bilaterally in the upper and lower extremities. Finger-to - nose is not dysmetric in the bilateral upper extremities and bilateral lower extremities. Left leg, straight leg raise is at 4+/5. PSYCHIATRIC EVALUATION: Oriented x3, but no evidence of anxiety or depression. DIAGNOSTIC STUDIES/LAB DATA: Showed sodium of 137, potassium 3.9, chloride 104 , carbon dioxide 26, BUN 15, creatinine 0.77. Liver function tests were unremarkable. LDL cholesterol was noted to be at 23. CBC: White blood cell count of 5.2, hemoglobin of 16.2, hematocrit of 46, and platelets of 161. Head CTA, impression: "Overall normal CT angiography of the head and neck without local filling defect, acute stenosis, or aneurysmal dilatation. The posterior circulation including the vertebral arteries and basilar artery are diminutive but this appearance has not changed since the prior 07/25/17 CTA of the head and neck." Portable chest x-ray, impression: "No radiographic evidence of acute cardiopulmonary abnormality of this portable chest x-ray." Head CT, impression: "No CT apparent acute intracranial abnormality including no acute intracranial hemorrhage or territorial infarction." The patient's EKG showed normal sinus rhythm with heart rate of 84 beats per minute with normal axis and no ST changes. ASSESSMENT AND PLAN: 1. In regards to the patient's cerebrovascular accident, at this point the patient is status post TPA. It is unclear if the patient in fact had a true neurologic event at this point. The description offered by the patient is somewhat unclear. At this point, it appears that his neurologic deficit is resolved. At this point, I appreciate Dr. Humphrey's consult. The patient is going to be kept in the intensive care unit for post TPA monitoring. The patient already has history of intracranial cardiac shunting. I spoke with Dr. Sommer who is the scraper operator on- call today. The patient missed 3 of his appointments with Dr. Lisa in the past to be evaluated for possibility of patent foramen ovale closure. At this point, after discussing with Dr. Sommer in the face of transient ischemic attack history as well as patent foramen ovale with history of hypocoagulable state, the patient is again a candidate for patent foramen ovale closure. The patient is recommended to follow with Dr. Lisa to set up an appointment for evaluation of that in a tertiary care center. 2. The patient has a history of low antithrombin III. At this point, I will ask Oncology to see the patient in consultation for further recommendations. 3. In regards to the patient's hypertension, we will allow permissive hypertension and his antihypertensives are going to be held for the time being. 4. For diabetes, the patient's metformin is going to be held and he is going to be placed on fingersticks without insulin sliding scale unless his sugars are markedly elevated. At this point, I will try to limit tissue injury from subcutaneous injections after TPA. 5. For the patient's dyslipidemia, the patient is going to be continued on his atorvastatin on which he has very good results with LDL in the 120s. 6. For DVT prophylaxis, the patient is at low risk. He is also status post TPA and no further management at this point is needed. 7. The patient's code status is full and his surrogate is his . TIME SPENT: Approximately 55 minutes was spent on admission of this patient. [id number]/[facility] #: [id number] SAMMY
--- NOTE | 2017-10-25 22:32 | CONS ---
CC: Dr. Benitez; Dr. Charly Goodson NEUROLOGY CONSULTATION REPORT: DATE OF CONSULT: 10/25/17 REASON FOR CONSULT: Followup note regarding neurologic status in the setting of tPA infusion for acute stroke. HISTORY OF PRESENT ILLNESS: Mr. Stuart Slaughter is a 47-year-old gentleman with a history of diabetes, hypertension, back surgery, spinal cord stimulator, who was admitted in July 2017 for left-sided numbness, weakness, slurred speech and was found to have a low antithrombin 3 and PFO on transesophageal echocardiogram. He was seen by Dr. Goodson in consultation. MRI could not be obtained secondary to pacemaker. His CTA of the brain and neck did not show any significant pathology. His transthoracic echocardiogram did fail to show PFO and therefore he went on for a transesophageal echocardiogram as an outpatient and hypercoagulable workup was performed and as an outpatient, the results came back that there was low antithrombin 3. Dr. Goodson referred Mr. Slaughter to Hematology/Oncology and unfortunately missed the appointment on . This was a consultation regarding further evaluation of the antithrombin 3 and need for different treatment. Mr. Slaughter had been placed on aspirin and atorvastatin after a stroke and he had gone back to normal. He had seen Dr. Goodson on 08/25/17 as a followup and unfortunately missed the followup on . Dr. Goodson also referred Mr. Slaughter to Dr. Billie Lisa for evaluation of PFO closure, and he unfortunately missed the appointments on 09/24/17 and . Mr. Slaughter said unfortunately that these appointments had interfered with other care. He has been helping take care of his dad. Mr. Slaughter follows with Dr. Benitez as an outpatient. Today, he was out shopping for a car and was with his father at 11:30 this morning when he felt wicked heartburn, a bad headache with stabbing pain in the left temporal region and acute onset of left face and arm numbness. At baseline , he has some left leg numbness. It is unclear whether there was also weakness. His spoke to him on the phone and indicated his speech was slurred, it was as if there was something in the back of his throat. She was able to understand what he was saying. His voice, however, was different. Dr. Troy saw him in the emergency room and activated a code davis and obtained consult with the [facility] for evaluation of tPA. He indicated there was slight weakness in the left arm and sensory change with NIH scale reported verbally at 2. During the consultation with the [facility] on Telestroke, diplopia was noted and tPA was recommended. He went on to have a CTA of the brain and neck, which did not show any significant stenosis. His tPA was noted be infusing in nursing notes at 14:21 and he is now being admitted to the ICU. PAST MEDICAL HISTORY: Includes diabetes, hypertension, asthma, back pain with hemilaminectomy in 2009, laminectomy in 2012, diskectomy in July 2016 and dorsal column stimulator in June 2017 as well as previous admission to hospital in July for TIA/stroke. MEDICATIONS: 1. The patient has received tPA in the emergency room. 2. He has been ordered for acetaminophen 650 mg p.o. q.4 hours p.r.n. 3. Atorvastatin 20 mg p.o. daily. 4. Diazepam 5 mg p.o. q.12 hours p.r.n. 5. Methocarbamol 500 mg p.o. 4 times daily p.r.n. 6. Morphine sulfate 1 mg IV q.4 hours p.r.n. 7. Oxycodone/acetaminophen 5/325 one tablet p.o. q.6 hours p.r.n. 8. Sodium chloride 1000 mL at 100 mL per hour IV. ALLERGIES: He has allergies to PENICILLIN and he does not know the reaction. FAMILY HISTORY: Includes a father, who had a myocardial infarction in his 20s in the setting of being exposed to Agent [place]; uncle who had a stroke in his mid 70s; 8 brothers, 1 who of pneumonia in the setting of autoimmune acquired deficiencies. SOCIAL HISTORY: Mr. Slaughter does not smoke. He drinks 1 beer a month. He denies recreational drug use. He lives with his , who is at bedside. REVIEW OF SYSTEMS: There was transient double vision that was horizontal while getting telemedicine consult with [facility]. He denies any other change in vision. He had change in speech, which has now gone back to normal. There has been no difficulty swallowing. He has had numbness and weakness as noted above. There has been no change in bowel or bladder habits. No change in coordination or gait. He denies any psychiatric history. There has been no weight loss, drenching night sweats, or high fevers for unknown reason. No unknown rash or joint pain. PHYSICAL EXAMINATION: On examination this evening, Mr. Slaughter's most recent temperature was 98.4 degrees Fahrenheit measured temporally, heart rate was 87, respiratory rate was 16, saturation was 95%, blood pressure was 135/85. He had a regular rhythm. His lungs were clear to auscultation. There was no evidence of peripheral edema. His peripheral pulses were intact. There was no evidence of petechiae. He was awake, alert, articulate. He had normal language function , adequate fund of knowledge. His pupils were equal and responsive to light. His fundi were flat. He had full extraocular movements with no nystagmus, full potter to confrontation. His facial expression, sensation and hearing were equal. Palate was upgoing. Tongue was midline. Sternocleidomastoid and trapezius were 5/5 in strength. There was normal bulk and tone. No pronator drift. Good strength in the upper and lower extremities with normal finger-to- nose and [id number] movements. There was some asymmetry to light touch, sharp decrease in the left arm and leg compared to the right; cold sensation appeared to be symmetric. Vibration sensation was decreased by about 5 seconds at the toes. Proprioception was intact. Reflexes were 2+ and symmetric in the upper and lower extremities and toes were flexor response. Gait was not tested because of clinical status. DIAGNOSTIC STUDIES/LAB DATA: Includes a CBC, which had normal white count, hemoglobin, hematocrit, and platelets. Monocytes were slightly elevated at 7.8. His INR and PTT were within normal limits. His complete metabolic panel showed a sodium of 137, his glucose was 195, and otherwise within normal limits. His lactate was 1.2. His total cholesterol was 95, triglycerides 235, HDL was 25.3 and LDL was 23. His urine showed 3+ glucose. IMPRESSION: Mr. Slaughter is a 47-year-old gentleman with previous admission in July for left-sided symptoms questioned to be transient ischemic attack versus stroke in the setting of diabetes, hypertension, asthma and back pain with a stimulator making it to he cannot have an MRI. He has had repeat CT, which did not show any significant pathology. His CTA did not show any significant stenosis and with consultation with [facility], he went on to receive tPA. He is doing well and subjectively his symptoms have resolved on examination; however, he still felt that there were asymmetries to sensation. He does have significant risk factors for stroke. His diabetes is not under control and further work needs to be made in this regard. His blood pressure today has some high readings. For now, permissive hypertension will be allowed ; however, there will be treatment per tPA guidelines. He also was found on his last admission to have a patent foramen ovale and he does need consultation with Cardiology for patent foramen ovale closure. He was also found to have low antithrombin 3 and outpatient Hematology consult was requested. We will try to get this as an inpatient; however, may have to be rescheduled as an outpatient. We talked about the importance of making his doctors' appointments , and if he has conflicts in the schedule to please call and reschedule rather than missing appointments. He will be admitted to the ICU for close observation per post tPA protocol with a CT in 24 hours. TIME SPENT: Over 45 minutes were spent in [id number] patent care, over 50% of the time was spent in education and counseling regarding diagnosis, differential diagnosis, approach to care, treatment, admission to ICU and further evaluation. [id number]/[facility] #: [id number] SAMMY
[2017-10-26] MEDS: NS 0.9% 1000 ML* 1,000 ML IV SCH (05:24)
--- NOTE | 2017-10-26 08:50 | PN ---
Subjective Date of Service: 10/26/17 Interval History: Pt feels back to baseline. no new complaints. Wants to go home Objective Active Medications: Acetaminophen (Tylenol Tab*) 650 mg PO Q4H PRN PRN Reason: FEVER/PAIN Last Admin: 10/25/17 18:10 Dose: 650 mg Atorvastatin Calcium (Lipitor*) 20 mg PO DAILY CHIOMA Diazepam (Valium Tab(*)) 5 mg PO Q12HR PRN PRN Reason: ANXIETY Methocarbamol (Robaxin Tab*) 500 mg PO QID PRN PRN Reason: PAIN Morphine Sulfate (Morphine Inj (Syringe)*) 1 mg IV Q4H PRN PRN Reason: PAIN Oxycodone/Acetaminophen (Percocet 5/325 Tab*) 1 tab PO Q6H PRN PRN Reason: PAIN Vital Signs - 8 hr 10/26/17 10/26/17 10/26/17 01:00 02:00 02:25 Temperature Pulse Rate 72 75 Respiratory 13 17 13 Rate Blood Pressure 133/80 98/76 (mmHg) O2 Sat by Pulse 93 95 Oximetry 10/26/17 10/26/17 10/26/17 03:00 03:01 03:40 Temperature 97.5 F Pulse Rate 88 83 Respiratory 18 15 Rate Blood Pressure 133/89 (mmHg) O2 Sat by Pulse 92 93 Oximetry 10/26/17 10/26/17 10/26/17 04:00 05:00 05:32 Temperature Pulse Rate 77 77 Respiratory 13 15 17 Rate Blood Pressure 128/85 122/80 (mmHg) O2 Sat by Pulse 92 94 Oximetry 10/26/17 07:38 Temperature 97.8 F Pulse Rate Respiratory Rate Blood Pressure (mmHg) O2 Sat by Pulse Oximetry Oxygen Devices in Use Now: None Appearance: 47 yo M in nAD, AAOx3 Eyes: No Scleral Icterus, PERRLA Ears/Nose/Mouth/Throat: NL Teeth, Lips, Gums, Mucous Membranes Moist Neck: NL Appearance and Movements; NL JVP, Trachea Midline Respiratory: Symmetrical Chest Expansion and Respiratory Effort, Clear to Auscultation Cardiovascular: NL Sounds; No Murmurs; No JVD, RRR Abdominal: NL Sounds; No Tenderness; No Distention, No Hepatosplenomegaly Lymphatic: No Cervical Adenopathy Extremities: No Edema, No Clubbing, Cyanosis Skin: No Rash or Ulcers, No Nodules or Sclerosis Neurological: Alert and Oriented x 3, - - left LE minimally weaker, otherwise no focal neuro findings Result Diagrams: 10/25/17 12:52 10/25/17 12:52 Additional Lab and Data: Lab Results 10/25/17 10/25/17 10/25/17 Range/Units 12:52 12:52 12:52 WBC 5.2 (3.5-10.8) 10^3/ul RBC 5.17 (4.0-5.4) 10^6/ul Hgb 16.2 (14.0-18.0) g/dl Hct 46 (42-52) % MCV 90 (80-94) fL MCH 31 (27-31) pg MCHC 35 (31-36) g/dl RDW 13 (10.5-15) % Plt Count 161 (150-450) 10^3/ul MPV 8.7 (7.4-10.4) um3 Neut % (Auto) 61.1 (38-83) % Lymph % (Auto) 26.0 (25-47) % [place] % (Auto) 7.8 H (0-7) % Eos % (Auto) 4.0 (0-6) % Baso % (Auto) 1.1 (0-2) % Absolute Neuts (auto) 3.2 (1.5-7.7) 10^3/ul Absolute Lymphs (auto) 1.3 (1.0-4.8) 10^3/ul Absolute Monos (auto) 0.4 (0-0.8) 10^3/ul Absolute Eos (auto) 0.2 (0-0.6) 10^3/ul Absolute Basos (auto) 0.1 (0-0.2) 10^3/ul Absolute Nucleated RBC 0 10^3/ul Nucleated RBC % 0 INR (Anticoag Therapy) 0.98 (0.77-1.02) APTT 36.1 (26.0-36.3) seconds Sodium 137 L (139-145) mmol/L Potassium 3.9 (3.5-5.0) mmol/L Chloride 104 (101-111) mmol/L Carbon Dioxide 26 (22-32) mmol/L Anion Gap 7 (2-11) mmol/L BUN 15 (6-24) mg/dL Creatinine 0.77 (0.67-1.17) mg/dL Est GFR ( Amer) 140.5 (>60) Est GFR (Non-Af Amer) 109.3 (>60) BUN/Creatinine Ratio 19.5 (8-20) Glucose 195 H (70-100) mg/dL Lactic Acid (0.5-2.0) mmol/L Calcium 9.3 (8.6-10.3) mg/dL Total Bilirubin 0.50 (0.2-1.0) mg/dL AST 13 (13-39) U/L ALT 27 (7-52) U/L Alkaline Phosphatase 66 (34-104) U/L Troponin I 0.00 (<0.04) ng/mL Total Protein 6.6 (6.4-8.9) g/dL Albumin 4.1 (3.2-5.2) g/dL Globulin 2.5 (2-4) g/dL Albumin/Globulin Ratio 1.6 (1-3) Triglycerides 235 mg/dL Cholesterol 95 mg/dL LDL Cholesterol 23 mg/dL HDL Cholesterol 25.3 mg/dL Urine Color Urine Appearance Urine pH (5-9) Ur Specific [place] (1.010-1.030) Urine Protein (Negative) Urine Ketones (Negative) Urine Blood (Negative) Urine Nitrate (Negative) Urine Bilirubin (Negative) Urine Urobilinogen (Negative) Ur Leukocyte Esterase (Negative) Urine Glucose (Negative) Blood Type Antibody Screen 10/25/17 10/25/17 10/25/17 Range/Units 12:52 12:52 14:15 WBC (3.5-10.8) 10^3/ul RBC (4.0-5.4) 10^6/ul Hgb (14.0-18.0) g/dl Hct (42-52) % MCV (80-94) fL MCH (27-31) pg MCHC (31-36) g/dl RDW (10.5-15) % Plt Count (150-450) 10^3/ul MPV (7.4-10.4) um3 Neut % (Auto) (38-83) % Lymph % (Auto) (25-47) % [place] % (Auto) (0-7) % Eos % (Auto) (0-6) % Baso % (Auto) (0-2) % Absolute Neuts (auto) (1.5-7.7) 10^3/ul Absolute Lymphs (auto) (1.0-4.8) 10^3/ul Absolute Monos (auto) (0-0.8) 10^3/ul Absolute Eos (auto) (0-0.6) 10^3/ul Absolute Basos (auto) (0-0.2) 10^3/ul Absolute Nucleated RBC 10^3/ul Nucleated RBC % INR (Anticoag Therapy) (0.77-1.02) APTT (26.0-36.3) seconds Sodium (139-145) mmol/L Potassium (3.5-5.0) mmol/L Chloride (101-111) mmol/L Carbon Dioxide (22-32) mmol/L Anion Gap (2-11) mmol/L BUN (6-24) mg/dL Creatinine (0.67-1.17) mg/dL Est GFR ( Amer) (>60) Est GFR (Non-Af Amer) (>60) BUN/Creatinine Ratio (8-20) Glucose (70-100) mg/dL Lactic Acid 1.2 (0.5-2.0) mmol/L Calcium (8.6-10.3) mg/dL Total Bilirubin (0.2-1.0) mg/dL AST (13-39) U/L ALT (7-52) U/L Alkaline Phosphatase (34-104) U/L Troponin I (<0.04) ng/mL Total Protein (6.4-8.9) g/dL Albumin (3.2-5.2) g/dL Globulin (2-4) g/dL Albumin/Globulin Ratio (1-3) Triglycerides mg/dL Cholesterol mg/dL LDL Cholesterol mg/dL HDL Cholesterol mg/dL Urine Color Yellow Urine Appearance Clear Urine pH 8.0 (5-9) Ur Specific [place] 1.018 (1.010-1.030) Urine Protein Negative (Negative) Urine Ketones Negative (Negative) Urine Blood Negative (Negative) Urine Nitrate Negative (Negative) Urine Bilirubin Negative (Negative) Urine Urobilinogen Negative (Negative) Ur Leukocyte Esterase Negative (Negative) Urine Glucose 3+(>=500 mg/dl) A (Negative) Blood Type B Positive Antibody Screen Negative Microbiology and Other Data: Microbiology 10/25/17 18:00 Nasal Screen MRSA (PCR)(MARILYN) - Final Nasal Mrsa Not Detected Assess/Plan/Problems-Billing Assessment: 47 yo M s/p multiple lumbar spine surgeries and dorsal column stimulator placed in 06/2017, HTN, DM presents with vague neuro symptoms that developed after he scratched the area of dorsal column stimulator and subsequently received TPA in ED for diplopia - Patient Problems (1) CVA (cerebral vascular accident) Comment: Unsure if pt had symptoms of CVA. Seen by teleneurology from [facility] at admission and tx with TPA. Neuro back to baseline today with mild left leg weakness. Appreciate Dr. Humphrey's imput Pt has h/o PFO and antithrombin 3 defficency. As per d/w Dr. Sommer pt is a candidate for PFO closure. will ask heme/onc to see pt in AM (2) Chronic back pain Comment: Stable Continue home prn medications of diazepam, ibuprofen, Percocet, and Robaxin. (3) HTN (hypertension) Comment: Normotensive, good control Holding HCTZ. (4) Type 2 diabetes mellitus Comment: HgbA1c 8.1 in 07/31 Continue to hold metformin x 48 hours after CTA (5) DVT prophylaxis Comment: low risk, post TPA Status and Disposition: inpatient
[2017-10-26] MEDS ORDERED: Dextrose 50% Syringe 50 ML* 25 GM/50 ML SYRINGE IV PUSH PRN (08:55)
[2017-10-26] MEDS: Atorvastatin* 20 MG TAB PO SCH (09:08)
[2017-10-26] MEDS: Insulin LISPRO* 1 UNITS UNIT SUBCUT SCH ×3 (12:46→20:50)
--- NOTE | 2017-10-26 13:43 | PN ---
CC: Dr. Benitez; Dr. Charly Goodson * FOLLOWUP NOTE: DATE OF SERVICE: 10/26/17 HISTORY OF PRESENT ILLNESS: Mr. Slaughter was admitted last night after acute onset of slurred speech, left-sided weakness, numbness and change in vision in the setting of recent admission and workup for stroke in July 2017, history of diabetes, hypertension and findings of low antithrombin III and PFO on transesophageal echocardiogram. He is in the ICU and his symptoms have resolved. He has no further headache after taking Tylenol. His vision has gone back to normal other than numbness in his left leg, which is chronic, he denies any new symptoms. We talked about his diabetes and sugar on today's visit and he indicates he has changed his diet. He has gone to a baby formula worker. He is working with his primary doctor and he is taking his medications. We talked about hemoglobin A1c and what this meant and the use of it for monitoring glucose control. PHYSICAL EXAMINATION: On examination today, his most recent temperature was 97.8 degrees Fahrenheit, pulse was 75, respiratory rate was 17, saturation was 94%, blood pressure was 122/80, he had regular cardiac rhythm. His lungs were clear to auscultation. There was no carotid bruit. He was awake, alert, showed appropriate concern. His facial expression was symmetric. He had full extraocular movements with no diplopia. Full potter to confrontation. His facial expression and sensation were equal. Palate was upgoing. Tongue was midline. Sternocleidomastoid and trapezius were 5/5 in strength. There was no dysarthria. He had normal bulk and tone. No pronator drift. Good strength in the upper and lower extremities, with what appeared to be making more effort when testing the left lower extremity. Although giving good resistance. It appeared uncomfortable for him to make the movements. He denied any asymmetries , pinprick, cold and light touch other than decreased sharp on the left lateral cherry. His reflexes were 2+ and symmetric in the upper and lower extremities with the exception of the left ankle that was hard to obtain. Coordination was normal with obqugs-xl-qzme and hdtl-mq-bplz movements. Gait was not tested at this time in this clinical setting. LABORATORY DATA: His glucose was elevated at 195 yesterday today it was 104, his troponin was 0. His total cholesterol was 95, LDL 23, HDL 25 and triglycerides 235. IMPRESSION: Mr. Slaughter is a 47-year-old gentleman with history of diabetes, hypertension, patent foramen ovale, low antithrombin III, spinal cord stimulator with admission in July with left-sided symptoms and now repeat admission with slurred speech, transient double vision during tPA evaluation and left-sided numbness and potentially weakness for which he received tPA and is now in the ICU stable. He has a noncontrast CT this afternoon, he will be continued to be monitored on telemetry after he leaves the ICU and on to the floor and if continued to be stable, he will be discharged home tomorrow. He does need to have an outpatient consultation with Dr. Lisa for PFO evaluation as suggested by Dr. Goodson. He also needs to have Oncology input regarding antithrombin III levels. Dr. Sawant will be talking to Dr. Esparza to see if the consultation is available this weekend or this may need to be done as an outpatient. The patient should follow up with Dr. Goodson in neurology, primary care, as well as cardiology and oncology consultation. I will order a hemoglobin A1c for tomorrow for further data for Dr. Goodson and primary care. [id number]/[facility] #: [id number] MTDD
--- NOTE | 2017-10-26 14:21 | RAD ---
INDICATION: Reevaluation after TPA administration COMPARISON: Most recent comparison CT of the brain is dated October 25, 2017 TECHNIQUE: Contiguous axial sections of the brain were obtained from the skull base to the vertex without contrast. FINDINGS: The ventricles, cisterns and sulci are within normal limits. The davis-white matter differentiation is adequately maintained and there is no sulcal effacement. No significant focal abnormality or mass effect is present. There is no evidence for intracranial hemorrhage. No significant focal osseous abnormality is present. The visualized portion of the paranasal sinuses appear clear. The mastoid air cells are well aerated bilaterally. IMPRESSION: Normal CT of the brain.
[2017-10-27 06:22] LABS: ABS Basophils 0.1 10^3/ul (0-0.2); ABS Eosinophils 0.2 10^3/ul (0-0.6); ABS Lymphocytes 1.2 10^3/ul (1.0-4.8); ABS Monocytes 0.4 10^3/ul (0-0.8); ABS Neutrophils 3.3 10^3/ul (1.5-7.7); ABS Nucleated RBC 0 10^3/ul; Eosinophil % 3.6 % (0-6); Hematocrit 44 % (42-52); Hemoglobin 15.3 g/dl (14.0-18.0); Lymphocyte % 23.4 % (25-47); Mean Corpuscular HGB Conc 35 g/dl (31-36); Mean Corpuscular Hemoglobin 31 pg (27-31); Mean Corpuscular Volume 90 fL (80-94); Mean Platelet Volume 8.5 um3 (7.4-10.4); Nucleated Red Blood Cells % 0.1; Platelet Count 142 10^3/ul (150-450); Red Cell Distribution Width 13 % (10.5-15); White Blood Count 5.2 10^3/ul (3.5-10.8)
[2017-10-27 06:44] LABS: EGFR Non-African American 100.2 (>60)
[2017-10-27] MEDS: Insulin LISPRO* 1 UNITS UNIT SUBCUT SCH (09:39)
[2017-10-27] MEDS: Atorvastatin* 20 MG TAB PO SCH (09:44)
[2017-10-27 11:26] VITALS: BP 140/79
--- NOTE | 2017-10-28 03:21 | DS ---
CC: Rajendra Benitez MD; Dr. Goodson; Dr. Lisa; Dr. Sommer; Dr. Ayala; Dr. Humphrey.* DISCHARGE SUMMARY: DATE OF ADMISSION: 10/25/17 DATE OF DISCHARGE: 10/27/17 PRIMARY CARE PROVIDER: Rajendra Benitez MD DISCHARGE DIAGNOSIS: Acute cerebrovascular accident manifesting with diplopia and left-sided numbness, it completely resolved after tPA treatment administered in the emergency room at admission. SECONDARY DIAGNOSES: 1. History of low antithrombin III levels. 2. History of positive intracardiac shunt, diagnosed during LOLA with Dr. Zuniga earlier this year. 3. History of diabetes type 2. 4. Hypertension. 5. Asthma. 6. Back pain. 7. History of hemilaminectomy in 2009. 8. Laminectomy in 2012. 9. Diskectomy in July 2016 with dorsal column stimulator placed in June 2017. MEDICATIONS AT DISCHARGE: Include: 1. The patient's aspirin is increased from 81 to 325 mg daily. The remaining medications are unchanged and include: 1. Lipitor 20 mg daily. 2. Valium 5 mg every 12 hours p.r.n. 3. Hydrochlorothiazide 25 mg daily. 4. Advil 200 mg on a p.r.n. basis. 5. Metformin 500 mg b.i.d. 6. Robaxin 500 mg up to 4 times a day p.r.n. 7. Oxycodone/acetaminophen 1 tablet every 6 hours p.r.n. CONSULTATIONS DURING THE HOSPITAL STAY: Included Dr. Elizabeth Humphrey from Neurology. LABORATORY DATA AND STUDIES PERFORMED DURING THE HOSPITAL STAY: The patient's hemoglobin A1c was noted to be 7.2. Sodium was 139, potassium 3.9, chloride 107 , carbon dioxide 27, BUN 15, creatinine 0.83. That was obtained on 10/27/17. Also on 10/27/17, white blood cell count of 5.2, hemoglobin of 15.3, hematocrit of 44, and platelets of 142. The patient's cholesterol profile which included triglycerides of 235, cholesterol total of 95, LDL of 23, and HDL of 25. Brain CT obtained on 10/26/17, impression: "Normal CT of the brain." Head and neck CTA on 10/25/17, impression: "Overall normal CT angiography of the head and neck without focal filling defect, acute stenosis, or aneurysmal dilatation. Posterior circulation including the vertebral arteries and basilar artery are diminutive, but this appearance has not changed since the prior 07/25 CTA of the head and neck." FOLLOWUP: 1. At discharge, the patient is recommended to follow up with Dr. Ayala. Dr. Ayala also is going to call patient with an appointment within the next 7 days for followup of low antithrombin III levels. 2. Dr. Lisa. The patient is requested to call Dr. Lisa and schedule an appointment in the next 2 to 4 weeks for discussion of PFO closure. 3. Dr. Goodson. The patient is recommended to follow with Dr. Goodson's office and schedule an appointment in approximately [address] Benitez. The patient is recommended to follow with Dr. Benitez in approximately 4 to 7 days after hospitalization. HOSPITALIZATION COURSE: Stuart Slaughter is a 47-year-old male with history of chronic lower back pain, multiple lumbar spine surgeries and dorsal column stimulator placement in June 2017. He had an episode of TIA with left- sided weakness in July 2017. This hospital stay, the patient stated that he felt that he had an itch at the site of the dorsal column stimulator. He scratched it and then subsequently developed numbness at the left side of his body. His voice sounded different. The patient did not have slurred speech though. He also complained of blurry vision, especially once he took his glasses off and he thought that possibly he developed diplopia. He was evaluated by tele neurologist from [place] when he was evaluated at [facility] and treated with tPA. Subsequently, his vision improved within the next 12 hours. His numbness resolved by the time he was admitted to the intensive care unit. He still continued to have residual left leg weakness that is a consequence of his multiple lumbar spine surgeries and not related to current presentation. Dr. Humphrey saw the patient in consultation and recommended to contact Cardiology in regards to this patient's history of having PFO and if patient is a candidate for PFO closure. I spoke with Dr. Sommer who stated that the patient is a candidate for PFO closure, but he needs to see Dr. Lisa as outpatient to follow up. I also spoke with Dr. Ayala briefly about this that the patient has a history of low antithrombin III levels. Unfortunately, he missed an appointment in the past with Hematology. At this point, Dr. Ayala will see the patient as outpatient in his office. He is going to call with an appointment within the next 7 days. Again at discharge, the patient is back to neurological baseline. Prior to discharge, I spoke with Dr. Pearson in regards to antiplatelet treatment and the recommendation was to increase the patient's dose of aspirin from 81 to 325 mg daily. PHYSICAL EXAMINATION AT DISCHARGE: Blood pressure of 140/79, heart rate of 73 and regular, respiratory rate 18, oxygen saturation 94% on room air, temperature 98.1. General: The patient is a very pleasant 47-year-old male, who is in no acute distress with a BMI of 38. The patient is alert, awake, and oriented x3. HEENT: Head: Atraumatic, normo-cephalic. Eyes: Pupils are equal , reactive to light and accommodation. Oropharynx is clear. Mucosa moist. Neck: Supple. No JVD. No bruits bilaterally. Cardiovascular: Regular rate and rhythm. No murmur. Respiratory: Clear to auscultation bilaterally. Abdomen: Soft, nontender. Bowel sounds are present in all 4 quadrants. Extremities: There is no edema. Pulses are +2 bilaterally. There is no clubbing or cyanosis. Neuro Evaluation: Speech is clear. Cranial nerves II through XII grossly intact. Motor strength is 5/5 bilaterally apart from minimal decrease in strength in the left lower extremity, which is chronic for the patient. Please note that this is a short summary of the patient's hospitalization. Please refer to further medical records for details. TIME SPENT: Approximately 45 minutes was spent on patient's discharge. [id number]/[facility] #: [id number] [facility]IT[facility]in
== END 2017-10-27 15:04 | disposition home or self-care (01) | DRG 45 ==
LOC: ED 11:33 → ICU 16:33 → MEDTELE 10-26 19:12
PROVIDERS: ADMIT Internal Medicine; ATTEND Internal Medicine
DX: I63.9 Cerebral infarction, unspecified (principal); D68.59 Other primary thrombophilia; Q21.1 Atrial septal defect; E11.9 Type 2 diabetes mellitus without complications; I10 Essential (primary) hypertension; J45.909 Unspecified asthma, uncomplicated; M47.9 Spondylosis, unspecified; Z96.89 Presence of other specified functional implants; R29.701 NIHSS score 1; G89.29 Other chronic pain; M54.5 Low back pain; F41.9 Anxiety disorder, unspecified; E66.9 Obesity, unspecified; G83.14 Monoplegia of lower limb affecting left nondominant side; E78.5 Hyperlipidemia, unspecified; R47.81 Slurred speech; R29.810 Facial weakness; H53.2 Diplopia; L29.9 Pruritus, unspecified; R20.0 Anesthesia of skin; Z88.0 Allergy status to penicillin; Z82.49 Family history of ischemic heart disease and other diseases of the circulatory system; Z86.73 Personal history of transient ischemic attack (TIA), and cerebral infarction without residual deficits; Z82.3 Family history of stroke; Z68.38 Body mass index [BMI] 38.0-38.9, adult; Z95.0 Presence of cardiac pacemaker; Z79.82 Long term (current) use of aspirin; Z79.84 Long term (current) use of oral hypoglycemic drugs
CPT/HCPCS: 36415; 70450; 70496; 70498; 71045; 80048; 80053; 80061; 81003; 83036; 83605; 84484; 85025; 85610; 85730; 86850; 86900; 86901; 87641; 93005; 99285; A9270-GY; J2997; Q9967

== ENCOUNTER 2017-12-01 13:32 | Observation (INO) | payer BC ==
[2017-12-01] MEDS ORDERED: NS 0.9% 1000 ML* 1,000 ML IV ONE (13:57)
[2017-12-01] MEDS ORDERED: Iodixanol* (CONTRAST) 320 MG/ML 100 ML SDV IV ONE (14:32)
[2017-12-01 14:36] LABS: ABS Basophils 0.1 10^3/ul (0-0.2); ABS Eosinophils 0.1 10^3/ul (0-0.6); ABS Lymphocytes 1.6 10^3/ul (1.0-4.8); ABS Monocytes 0.3 10^3/ul (0-0.8); ABS Neutrophils 3.7 10^3/ul (1.5-7.7); ABS Nucleated RBC 0 10^3/ul; Eosinophil % 2.3 % (0-6); Hematocrit 46 % (42-52); Hemoglobin 16.1 g/dl (14.0-18.0); Lymphocyte % 27.7 % (25-47); Mean Corpuscular HGB Conc 35 g/dl (31-36); Mean Corpuscular Hemoglobin 31 pg (27-31); Mean Corpuscular Volume 89 fL (80-94); Mean Platelet Volume 8.8 um3 (7.4-10.4); Nucleated Red Blood Cells % 0; Platelet Count 172 10^3/ul (150-450); Red Blood Count 5.19 10^6/ul (4.0-5.4); Red Cell Distribution Width 13 % (10.5-15); White Blood Count 5.8 10^3/ul (3.5-10.8)
[2017-12-01 14:45] LABS: INR 0.97 (0.77-1.02)
--- NOTE | 2017-12-01 14:49 | RAD ---
INDICATION: Evaluate for CVA COMPARISON: CT brain October 26, 2017 TECHNIQUE: Noncontrast axial source images were acquired from the skull base to the vertex. FINDINGS: Ventricles/sulci: The ventricles and cisterns are normal in size and configuration for age. Brain parenchyma: There is no focal parenchymal finding, evidence of intracranial mass, or intracranial mass effect. Intracranial hemorrhage:None. Extra-axial spaces: There are no abnormal extra axial fluid collections or evidence of extra-axial mass. Calvarium: There is no calvarial fracture or other calvarial abnormality. Scalp: There is no evidence of scalp or extracalvarial soft tissue abnormality. Paranasal sinuses/mastoid: The paranasal sinuses and mastoid air cells are clear. Other: None. IMPRESSION: NO ACUTE INTRACRANIAL FINDINGS. NO INTERVAL CHANGES
[2017-12-01 14:53] LABS: EGFR Non-African American 81.7 (>60)
--- NOTE | 2017-12-01 14:53 | RAD ---
HISTORY: Dizziness, left arm numbness, diplopia COMPARISONS: October 25, 2017 TECHNIQUE: Multiple contiguous axial CT scans were obtained of the head and neck after the administration of nonionic intravenous contrast timed to the systemic arterial phase of contrast enhancement. Coronal and sagittal multiplanar reformations are submitted for review. Multiple 3-D maximum intensity projection reconstructions are also submitted for review. FINDINGS: CTA NECK: AORTIC ARCH: There is a normal three-vessel branching pattern of the aortic arch. There is no ostial or proximal stenosis of the cephalic great vessels. RIGHT VERTEBRAL ARTERY: The right vertebral artery is patent along its course, without stenosis. LEFT VERTEBRAL ARTERY: The left vertebral artery is patent along its course, without stenosis. DOMINANCE: The vertebral arteries are codominant. RIGHT COMMON CAROTID ARTERY: The right common carotid artery is patent. The right carotid bifurcation occurs at C4-C5 RIGHT INTERNAL CAROTID ARTERY: There is no right internal carotid artery stenosis by NASCET criteria. RIGHT EXTERNAL CAROTID ARTERY: The right external carotid artery is unremarkable. LEFT COMMON CAROTID ARTERY: The left common carotid artery is patent. The left carotid bifurcation occurs at 45 LEFT INTERNAL CAROTID ARTERY: There is no left internal carotid artery stenosis by NASCET criteria. LEFT EXTERNAL CAROTID ARTERY: The left external carotid artery is unremarkable. VENOUS CIRCULATION: The venous system is unremarkable. SALIVARY GLANDS: The parotid glands, submandibular glands, sublingual glands are normal. NASAL CAVITY/NASOPHARYNX: The nasal cavity and nasopharynx are normal. ORAL CAVITY/OROPHARYNX: The oral cavity is obscured by streak artifact from dental amalgam. The visualized oral cavity and oropharynx are unremarkable. LARYNGEAL APPARATUS/HYPOPHARYNX: The laryngeal apparatus and hypopharynx are normal. UPPER AIRWAY/UPPER ESOPHAGUS: The visualized upper airway and esophagus are normal. LUNG APICES: The lung apices are clear. THYROID GLAND: The thyroid gland is normal. LYMPH NODES: There is no lymphadenopathy by size criteria. BONES AND SOFT TISSUES: Degenerative changes are noted along the spine. CTA HEAD: INTRACRANIAL CIRCULATION: There is no aneurysm, vascular malformation, occlusion, or stenosis of the visualized intracranial circulation. The anterior communicating artery complex is clear. There are origins of the posterior cerebral arteries bilaterally. VENOUS CIRCULATION: The venous system is unremarkable. PERFUSION: There is no obvious parenchymal perfusion deficit. HEMORRHAGE/INFARCT: There is no hemorrhage or acute infarct. MASSES/SHIFT: There is no mass or shift. EXTRA-AXIAL SPACES: There are no extra-axial fluid collections. SULCI AND VENTRICLES: The sulci and ventricles are normal in size and position for the patient's stated age. CEREBRUM: There are no focal parenchymal abnormalities. BRAINSTEM: There are no focal parenchymal abnormalities. CEREBELLUM: There are no focal parenchymal abnormalities. PARANASAL SINUSES: The paranasal sinuses are clear. ORBITS: The orbits are unremarkable. BONES AND SOFT TISSUE: No bone or soft tissue abnormalities are noted. OTHER: There is no abnormal enhancement. IMPRESSION: 1. NO ANEURYSM, VASCULAR MALFORMATION, OCCLUSION, OR STENOSIS OF THE VISUALIZED INTRACRANIAL CIRCULATION. 2. NO INTERNAL CAROTID ARTERY STENOSIS BY NASCET CRITERIA. CPT II Codes: 3100F
[2017-12-01] MEDS ORDERED: Acetaminophen TAB* 325 MG PO PRN (16:54)
[2017-12-01] MEDS ORDERED: oxyCODONE/Acetamin 5/325 MG* TAB PO PRN (16:55)
[2017-12-01] MEDS ORDERED: Diazepam TAB(*) 5 MG PO PRN (16:55)
[2017-12-01] MEDS ORDERED: Methocarbamol TAB* 500 MG PO PRN (17:16)
[2017-12-01] MEDS ORDERED: Dextrose 50% Syringe 50 ML* 25 GM/50 ML SYRINGE IV PUSH PRN (17:17)
[2017-12-01] MEDS: Heparin VIAL(*) 5000 UNITS/ML VIAL (FIVE THOUSAND) SUBCUT SCH (20:06)
[2017-12-01] MEDS: Insulin LISPRO* 1 UNITS UNIT SUBCUT SCH (20:12)
--- NOTE | 2017-12-01 20:40 | HP ---
CC: Dr. Lugo, [facility] * HISTORY AND PHYSICAL: DATE OF ADMISSION: 12/01/17 PROVIDER: Royer Thompson NP ATTENDING PHYSICIAN: Dr. Savage * (report dictated by Royer Thompson NP). PRIMARY CARE PROVIDER: Dr. Benitez. NEUROLOGIST: Dr. Goodson. SUPERVISOR FINISHING: Dr. Lisa. LEAK HUNTER: Dr. Schaefer. PROPELLER MECHANIC: Dr. Ayala. NEUROSURGEON: Dr. Lugo. CHIEF COMPLAINT: Left upper extremity numbness. HISTORY OF PRESENT ILLNESS: Mr. Slaughter is a 47-year-old male with a past medical history of TIA in July 2017; history of CVA, October 2017, with left upper extremity weakness/numbness in which he was given tPA; intracardiac shunting with possible PFO; status post dorsal column simulator implantation in June 2017 for chronic low back pain; history of hemilaminectomy and diskectomy; hypertension; type 2 diabetes; anxiety, who presents to the emergency department today with report of numbness and tingling in his left upper extremity as well as pain in his left upper extremity, which started approximately at 12:45 while running errands. The patient reported that it was diffuse pain, numbness, and tingling in his left upper extremity, was denying any radiation to his back. He reports accompanied double vision and mild dizziness. He also reported that he had a sudden onset of feeling very tired and sleepy. He does have a history of chronic left lower extremity numbness secondary to his multiple back surgeries and states that this is at his baseline. He denies headache, difficulty with speech. He reports that these symptoms are very similar to the last 2 times he was in the emergency department in July and in October; however, reports that the extreme tiredness is new. Currently, on my evaluation, the patient reports that his symptoms are mostly resolved, but still continues to have some left upper extremity numbness and tingling that waxes and wanes. He reports he currently does not feel as sleepy. Denies any history of seizures in the past. He is seen by neurologist , Dr. Bonilla, in the emergency department, who plans to do an EEG. His brain CT in the emergency department has no acute intracranial findings or interval changes. He also underwent a head CTA, which shows: "1. No aneurysm, vascular malformation, occlusion, or stenosis of the visualized intracranial circulation. 2. No intracranial carotid artery stenosis." PAST MEDICAL HISTORY: 1. History of TIA in July 2017 with similar symptoms. 2. CVA in October 2017 in which he received tPA for similar symptoms with left upper extremity weakness/numbness with diplopia. 3. History of LOLA, which showed intracardiac shunting with possible PFO. 4. History of chronic pain. 5. Status post dorsal column stimulator placed 06/24/17. 6. History of hemilaminectomy, 2013; diskectomy in July 2016. 7. Type 2 diabetes, non-insulin dependent. 8. History of anxiety. 9. History of low anti-thrombin III level; however, he is currently undergoing a workup with Dr. Ayala and recent labs appeared normal. HOME MEDICATIONS: 1. Percocet 5/325 mg 1 tab p.o. q.6 hours p.r.n. 2. Metformin 1000 mg p.o. b.i.d. 3. Methocarbamol 500 mg p.o. four times a day p.r.n. 4. Hydrochlorothiazide 25 mg p.o. daily. 5. Valium 5 mg p.o. q.12 hours p.r.n. 6. Lipitor 20 mg p.o. daily. 7. Aspirin 325 mg p.o. daily. ALLERGIES: PENICILLIN. FAMILY HISTORY: Father has a history of heart disease. History of stroke in his uncle. SOCIAL HISTORY: The patient denies any tobacco abuse. No current alcohol use. He is retired from [employer] and currently is applying for disability. His , Macie, is his healthcare proxy. REVIEW OF SYSTEMS: A 14-point review of systems was performed. All the pertinent positives and negatives are mentioned in the history of present illness. Otherwise are negative. PHYSICAL EXAMINATION GENERAL APPEARANCE: A 47-year-old obese male, lying in bed. Alert and oriented x3, in no acute distress. Good historian. VITAL SIGNS: Temperature 97.4, heart rate 87, respirations 18, O2 sat 98% on room air, blood pressure is 130/83. HEENT: Head is normocephalic, atraumatic. Pupils are equal and reactive to light. Oropharynx is clear. Moist mucous membranes. NECK: Supple. No JVD noted. RESPIRATORY: Lungs are clear to auscultation bilaterally. Good aeration throughout. CARDIAC: S1 and S2. Regular rate and rhythm. No murmurs, rubs, or gallops appreciated. No lower extremity edema noted. ABDOMEN: Obese, soft, nontender, and nondistended. Normal bowel sounds throughout. EXTREMITIES: 2+ DP pulses bilaterally. No clubbing, cyanosis, or edema noted. NEURO: Cranial nerves II through XII are grossly intact. Speech is clear. No facial droop noted. No pronator drift. Strength is 5/5, right upper extremity and right lower extremity, and strength is 4/5 in left upper and lower extremity. No visual field cut noted. Extraocular movements intact. No diplopia on exam. PSYCH: Alert and oriented x3. Appropriate to situation. DIAGNOSTIC STUDIES/LAB DATA: Sodium 138, potassium 3.3, chloride 99, carbon dioxide 31, anion gap 8, BUN 13, creatinine 0.99, glucose 207, lactic acid 1.9, calcium 9.3. Total bilirubin 0.60, AST 17, ALT 36, alkaline phosphatase 64. Troponin 0.00. Total protein 6.8, albumin 4.2. WBC is 5.8, RBC is 5.19. Hgb 16.1, Hct 46, MCV 89, MCH 31, MCHC 35, RDW 13, platelet count 172. INR 0.97. EKG: Sinus rhythm at the rate of 98. In comparison to prior EKG, no acute changes noted. ASSESSMENT AND PLAN: Mr. Slaughter is a 47-year-old male with a past medical history of transient ischemic attack, cerebrovascular accident, with tPA; history of chronic back pain noted with multiple back surgeries and dorsal column stimulator; type 2 diabetes; anxiety, who presents to the emergency department today with acute onset of left upper extremity numbness, tingling, weakness, and diplopia. 1. Left upper extremity weakness and diplopia. The patient was seen by neurologist, Dr. Bonilla, who does not think the patient is having a cerebrovascular accident or transient ischemic attack at this time. Plan is to obtain an EEG and if normal, the patient could be discharged home if his symptoms have resolved. Dr. Bonilla did report that she looked at his hypercoagulable workup, which appears to be normal. It is unclear why the patient's symptoms are waxing and waning; however, these are very similar symptoms to how he presented in July and again in October. He is currently being followed as an outpatient by Dr. Goodson and has a followup appointment with Dr. Ayala in 2 days for hematology. As well, he is following with Dr. Schaefer, pockets and pieces necktie operator, for possible intracardiac shunting. The patient cannot undergo an MRI due to his spinal column stimulator. Plan for neuro checks. Awaiting results of EEG and will discuss with Dr. Bonilla plan of care moving forward. Continue full-dose aspirin and Lipitor. The patient's diplopia has resolved and still continues to have some left upper extremity numbness and tingling, which is waxing and waning, but his symptoms appeared to be resolving at this time. 2. Type 2 diabetes. Hold metformin. Fingerstick blood glucose a.c. and h.s. with lispro sliding scale. 3. Hypertension. Continue hydrochlorothiazide. 4. Back pain. Continue Percocet p.r.n. 5. Electrolyte abnormalities. Replace potassium, add on magnesium level. 6. DVT prophylaxis. Heparin subcu. 7. Code status. Full code. 8. Hospital status. Observation. TIME SPENT: Approximately 60 minutes was spent on this admission. This case was discussed with Dr. Savage, attending physician, as well as neurologist, Dr. Bonilla. ROYER THOMPSON, [employer] [id number]/[facility] #: [id number] MTDLudin
--- NOTE | 2017-12-01 22:19 | CONS ---
CC: Dr. Goodson; Dr. Benitez * NEUROLOGY CONSULTATION: DATE OF CONSULT: 12/01/17 REASON FOR CONSULT: Possible stroke. HISTORY OF PRESENT ILLNESS: Stuart Slaughter is a 47-year-old right-handed man with a history of diabetes, hypertension, back surgery including placement of a dorsal column stimulator in June of 2017, as well as past history of TIA/ stroke in July of this year as well as October of this year, who came into the emergency department with the acute onset of left-sided numbness in his arm as well as some dizziness and double vision at 12:45 today. He was in [place] running some errands at the time of onset. He presented to the emergency department for further evaluation and since he arrived here, he feels that the vision issues have improved somewhat, but his left arm still feels off and he still feels lightheaded. He also reports sleepiness and his feels that he is having some word-finding problems. His history is otherwise notable for coming into the hospital on 10/25/17 with similar symptoms. He received tPA for diplopia as well as left-sided sensory changes and potentially a flattened left nasolabial fold as well. Otherwise, in July, he was seen by Dr. Goodson when he came in for left-sided numbness, weakness, and slurred speech. During that workup, he was found to have a low antithrombin III level as well as a PFO on transesophageal echocardiogram. Since those admissions, he has been evaluated by Cardiology as well as Hematology and is being referred to Pulmonology for evaluation for sleep apnea. He is due to follow up with Dr. Ayala on his hematologic studies in 2 days. He has been on aspirin, which he takes at night and denies having missed this medication recently. He denies any recent systemic illness or increased stress, though he says his stress level is chronically high. He has not been able to undergo MRI scan of the brain because of spinal cord stimulator. His CT angiogram has not shown any new significant abnormalities. Because of the known time of onset of his symptoms, which are stroke like, Adán Gavin was advised to be called and I evaluated the patient. Given the recurrent symptoms, which are essentially the same as what he has experienced in the past without any clear underlying vascular abnormality which would predispose him to stereotyped ischemic symptoms as well as having been given tPA last month, I decided not to give him tPA and the patient was in agreement with this. On NIH Stroke Scale, he scored 1 for some sensory loss, the low score being another reason against tPA. PAST MEDICAL HISTORY: Diabetes; hypertension; asthma; back pain with hemilaminectomy in 2009 as well as laminectomy in 2012, diskectomy and finally dorsal column stimulator in June 2017; past admissions for TIA/stroke workups in July and October of this year. HOME MEDICATIONS: 1. Oxycodone/acetaminophen 5/325 mg 1 tablet q.6 p.r.n. 2. Metformin 1000 mg b.i.d. 3. Methocarbamol 500 mg four times daily p.r.n. 4. Hydrochlorothiazide 25 mg daily. 5. Diazepam 5 mg q.12 p.r.n. 6. Atorvastatin 20 mg daily. 7. Aspirin 325 mg daily. ALLERGIES: PENICILLIN. FAMILY HISTORY: There are strokes in the family, but not in the young. His father had a heart attack in his 20s in the setting of being exposed to [place]. SOCIAL HISTORY: He does not smoke and drinks rarely. He does not use any recreational drugs. He lives with his and his son, both of whom are at his bedside. REVIEW OF SYSTEMS: As per the HPI, otherwise negative. PHYSICAL EXAM: Vital Signs: Temperature 98.9, blood pressure most recently 115 /82 with heart rate of 92, oxygen saturation 95% on room air. His highest blood pressure was measured at 168/103 upon his arrival back from CT scan and as I was leaving the room, it was rechecked and was 141/91, but now improved to 115/82 as mentioned. On general examination, he is a pleasant man, who is occasionally tearful, but in no acute distress. He is obese. Heart is in a regular rate and rhythm with no obvious murmurs, rubs, or gallops. Lungs are clear to auscultation bilaterally. There are no carotid bruits. There is no peripheral edema. He was awake and alert, but occasionally closed his eyes and had to be prompted to open them and engage with the examiner. His speech sounded clear to me, though his thought it sounded a bit "lispy." He was able to describe the [employer] picture, name all objects, and read phrases without any significant difficulties. On cranial nerve exam, pupils were 4 to 2 mm bilaterally. His versions were full without nystagmus, but he endorsed diplopia at extremes of gaze in both directions horizontally, which resolved with one eye occluded. On gaze to the left, his left eye appeared to not completely abduct. At times while on gaze to the right, his left eye appeared to displace superiorly slightly. Visual potter were full to confrontation. Facial sensation was slightly diminished to light touch on the left. Facial musculature was full and symmetric. Hearing was intact to finger rub. The palate elevates symmetrically and tongue was midline. There was normal bulk and tone in the upper and lower extremities with no pronator drift. He had normal strength in the upper and lower extremities with no tremor or adventitious movements. There was asymmetry to light touch in the left upper extremity, but essentially equal in the lower extremities. Temperature, sensation appeared symmetric. Reflexes were 2+ in the upper and lower extremities with downgoing toes. I did not test his gait. [id number] and qukx-bi-[id number] were intact without ataxia. DIAGNOSTIC STUDIES/LAB DATA: His CBC was unremarkable. CMP not yet available. I reviewed his more recent hypercoagulable studies including antithrombin III antigen as well as antithrombin III activity, which both appeared to be within the normal range. He had a lupus anticoagulant done in October, which was negative. He also had beta-2 glycoproteins and anticardiolipin antibody sent in October, which were negative. I reviewed his brain CT, which showed no evidence of hemorrhage and no clear evidence of old infarct. 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 IMPRESSION AND PLAN: Stuart Slaughter is a 47-year-old man with vascular risk factors including diabetes, hypertension, and previous transient ischemic attack versus stroke, who presents today with the recurrence of essentially the same neurologic symptoms that he experienced in October including left-sided numbness and heaviness, a sense of dizziness/lightheadedness and diplopia. In addition, new today is the sense of feeling overall weak/tired and his reports he is pausing trying to find words. His CTA does not show any obvious reason why he would continue to experience recurrent stereotyped neurologic symptoms. Unfortunately, he is not able to undergo MRI because of his spinal cord stimulator to help further define whether he has indeed suffered posterior circulation strokes in the past. I do note that he did seem to have some diplopia on my examination, which did seem to correlate with some malalignment of his eyes. He is currently treated with aspirin and is undergoing further workup for his potential stroke risk factors including evaluation by Hematology and also referral to Pulmonology for evaluation for sleep apnea. His blood pressures have fluctuated today, but most recently have been within the normal range. He is also apparently undergoing evaluation for possible patent foramen ovale closure. I opted not to give him tPA today because of the presence of the same symptoms that he experienced in October, which could be recrudescence of old stroke symptoms rather than a new stroke, as well as the fact that he received tPA less than 3 months ago, which is a relative contraindication. He also had a low NIHSS score. I am going to obtain an EEG just because of these recurrent stereotyped symptoms. Further disposition will be pending that testing. I believe he is going to be moved into clinical decision unit in order to complete this testing. [id number]/[facility] #: [id number] SAMMY
--- NOTE | 2017-12-02 02:43 | ED ---
Kimberley Dubose Rebecca, scribed for Sole Butler MD on 12/01/17 at 1355 . Neurological HPI - HPI Summary HPI Summary: Pt is a 47 y/o M accompanied by his , Macie, who presents to ED c/o LUE numbness. 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 This then spread to encompass the entire LUE. On triage, pain was ranked to be 0/10, though pt remarks that he still has LUE pain during evaluation. Additionally c/o RLE numbness on the lateral side, described as that is "feels asleep" as well as mild dizziness and bilateral diplopia. also notes that the pt appears to be sleepy. Notes chronic LLE numbness s/p multiple surgeries including a double hemilaminectomy, laminectomy , discectomy, and spinal stimulator trial. Pt is unable to have an MRI due to the dorsal column stimulator. Denies BAKER, CP, SOB, abd pain and neck pain. Last known well 1 hour ago (1245). Takes 324 mg ASA, is not on any other blood thinners. confirms the pt is consistent with takes his medications. PMHx TIA (July 2017) and CVA (2017, discharged 10/27/2017) - [place] [facility] [place]. Is followed by multiple specialists, including Dr. Lisa, Dr. Ayala and Dr. Goodson. Recent LOLA performed - finding a "hole in heart" which is presumed to be PFO. Another LOLA is scheduled and is supposed to meet with a health service worker, as well as get a holter monitor. Has an appointment with Dr. Ayala for Friday (2 days from today) to review blood work that he had drawn both 4 weeks ago and last week with a workup for suspected thrombin deficiency. - History of Current Complaint Chief Complaint: EDNeurologicalDeficit Stated Complaint: STROKE LIKE ACTIVITY Hx Obtained From: Patient Onset/Duration: Sudden Onset, Started hours ago - 1 hour C[employer]Y [employer]IVER, Still Present Timing: Constant Onset Severity: Moderate Current Severity: Moderate Neurological Deficit Location: LUE - Numbness/tingling, RLE - numbness - "feels asleep", LLE - Chronic numbness and weakness s/p multiple spine surgeries Pain Intensity: 0 - On triage - remarked to have pain while being evaluated Pain Scale Used: 0-10 Numeric Character: Dizzy - mild, Numbness/Tingling - LUE, RLE, chronic LLE, Visual Changes - Diplopia Aggravating: Nothing Alleviating: Nothing Associated Signs and Symptoms: Positive: Visual Changes - Diplopia, Numbness - left upper extremity (hand). Negative: Headache TPA Considered: Yes - definite time of onset,NIH 0-1,had TPA 10/2017,Dr. Bonilla says no TPA Similar Episode/Dx as: TIA Jul 2017, CVA 10/2017 with TPA given (similar sxs that improved) Related Hx: ASA - Additional Pertinent History Primary Care Physician: [id number] - Allergy/Home Medications Allergies/Adverse Reactions: Allergies Allergy/AdvReac Type Severity Reaction Status Date / Time Penicillins Allergy Unknown Verified 12/01/17 13:38 Reaction Details Home Medications: Home Medications metFORMIN* [Glucophage 500 MG TAB *] 1,000 mg PO BID 12/01/17 [History Confirmed 12/01/17] PMH/Surg Hx/FS Hx/Imm Hx Previously Healthy: No Endocrine/Hematology History: Reports: Hx Diabetes Denies: Hx Thyroid Disease Cardiovascular History: Reports: Hx Hypertension Denies: Hx Deep Vein Thrombosis, Hx Hypercholesterolemia, Hx Pacemaker/ICD Respiratory History: Reports: Hx Asthma, Hx Seasonal Allergies Denies: Hx Chronic Obstructive Pulmonary Disease (COPD) GI History: Denies: Hx Ulcer History: Denies: Hx Dialysis, Hx Renal Disease Musculoskeletal History: Reports: Hx Arthritis - LOW BACK, Hx Back Problems Sensory History: Reports: Hx Contacts or Glasses Denies: Hx Hearing Aid Opthamlomology History: Reports: Hx Contacts or Glasses Neurological History: Reports: Hx CVA - 10/2017, Hx Transient Ischemic Attacks ( TIA) - Jul 2017 Denies: Hx Seizures, Hx Spinal Cord Injury, Other Neuro Impairments/Disorders Psychiatric History: Reports: Hx Anxiety Denies: Hx Panic Disorder - Surgical History Surgery Procedure, Year, and Place: 05/2010 DOUBLE SYDNEE - LAMINECTOMY DR. NELSON. 07/[address] NELSON. 07/[address] [place]. 2016 SPINAL STIMULATOR PLACEMENT - AND REMOVAL - LEAD REMOVAL VERIFIED VIA CLEARANCE XRAYS PER DR. CHAN 05.25.2017. JUN 2017- PERMANENT STIMULATOR PLACEMENT Hx Anesthesia Reactions: No - Immunization History Date of Tetanus Vaccine: up to date per pt Infectious Disease History: No Infectious Disease History: Denies: Hx Clostridium Difficile, Hx Hepatitis, Hx Human Immunodeficiency Virus (HIV), Hx of Known/Suspected MRSA, Hx Shingles, Hx Tuberculosis, Hx Known/ Suspected VRE, Hx Known/Suspected VRSA, History Other Infectious Disease, Traveled Outside the [place] in Last 30 Days - Family History Known Family History: Positive: Cardiac Disease, Other - cancer - Social History Lives: With Family Alcohol Use: Rare Alcohol Amount: 1 beer per month Hx Substance Use: No Substance Use Type: Reports: Prescribed Hx Tobacco Use: No Smoking Status (MU): Never Smoked Tobacco Have You Smoked in the Last Year: No Review of Systems Positive: Other - Sleepy, per Positive: Diplopia - bilateral Negative: Chest Pain Negative: Shortness Of Breath Negative: Abdominal Pain Positive: Other - LUE pain; NEGATIVE: Neck pain Neurological: Other - Tingling in the LUE, mild dizziness Positive: Numbness - LUE and RLE; chronic LLE. Negative: Headache, Slurred Speech Psychological: Normal All Other Systems Reviewed And Are Negative: Yes Physical Exam - Summary Physical Exam Summary: Appearance: Well-appearing, no pain distress, Well-nourished, hypertensive, speech clear Skin: Warm, color reflects adequate perfusion, dry Head: Normal Head/Face inspection, Atraumatic Eyes: Conjunctiva clear, PERRL, EOMI, no nystagmus ENT: Normal inspection Neck: Supple, no nodes, no JVD, no bruits Respiratory: Lungs clear, Normal breath sounds, no respiratory distress Cardio: RRR, No murmur, pulses normal, brisk capillary refill Abdomen: soft, nontender Bowel sounds: present Musculoskeletal: Strength Intact/ ROM intact. No calf tenderness. No edema. Psychological: Normal Neuro: A&O x3, CN II-XII intact, Motor function 5/5, Sensation intact to light touch, no double vision in either eye, tested separately to my exam GCS: 15 NIH: 0 Triage Information Reviewed: Yes Vital Signs On Initial Exam: Initial Vitals Temp Pulse Resp BP Pulse Ox 98.9 F 104 20 149/114 96 12/01/17 13:34 12/01/17 13:34 12/01/17 13:34 12/01/17 13:34 12/01/17 13:34 Vital Signs Reviewed: Yes Diagnostics - Vital Signs Vital Signs Temp Pulse Resp BP Pulse Ox 12/01/17 13:34 98.9 F 104 20 149/114 96 - Laboratory Result Diagrams: 12/01/17 14:23 12/01/17 14:23 Lab Statement: Any lab studies that have been ordered have been reviewed, and results considered in the medical decision making process. - Radiology CXR Xray Interpretation: No Acute Changes - No radiographic evidence for acute cardiopulmonary abnormality on this portable chest x-ray. ED physician reviewed this radiology report. Radiology Interpretation Completed By: Radiologist - CT CT Brain CT Interpretation: No Acute Changes - NO ACUTE INTRACRANIAL FINDINGS. NO INTERVAL CHANGES. ED physician reviewed this radiology report. CT Interpretation Completed By: Radiologist CTA Head/Neck CT Interpretation: No Acute Changes - 1. NO ANEURYSM, VASCULAR MALFORMATION, OCCLUSION, OR STENOSIS OF THE VISUALIZED INTRACRANIAL CIRCULATION. 2. NO INTERNAL CAROTID ARTERY STENOSIS BY NASCET CRITERIA. ED physician reviewed this radiology report. CT Interpretation Completed By: Radiologist - EKG 1405 Cardiac Rate: NL - 98 bpm EKG Rhythm: Sinus Rhythm EKG Interpretation: Nl AV/IV CT, nl axis, nl QTC NIH Scale - NIH Scale Level of Consciousness: Alert/Keenly Responsive Ask Patient the Month and His/Her Age: Both Correct Ask Pt to Open/Close Eyes and Interactive Designer/Release Non-Paretic Hand: Both Correctly Best Gaze (Only Horizontal Eye Movement): Normal Visual Field Testing: No Visual Loss Facial Paresis-Pt to Smile & Close Eyes or Grimace Symmetry: Normal/Symmetrical Motor Function - Right Arm: No Drift-Holds 10 Seconds Motor Function - Left Arm: No Drift-Holds 10 Seconds Motor Function - Right Leg: No Drift-Holds 10 Seconds Motor Function - Left Leg: No Drift-Holds 10 Seconds Limb Ataxia-Must be out of Proportion to Weakness Present: Absent Sensory (Use Pinprick to Test Arms/Legs/Trunk/Face): Normal Best Language (Describe Picture, Name Items): No Aphasia Dysarthria (Read Several Words): Normal Extinction and Inattention: No Abnormality Total Score: 0 Re-Evaluation - Re-Evaluation First Eval Re-Evaluation Time: 14:18 Change: Unchanged Comment: reports the pt is sleepy and that he sounds tired. She was not with him when symptoms began - he was shopping with his father. PMHx DM - does not take insulin regularly, though states he often receives it while at [facility]. Pt is being taken to CT. Course/Dx - Course Course Of Treatment: Discused care of pt with Dr. Bonilla who advised CT and CTA, and calling a code prieto because the time of onset is known. Discussed care of pt with Dr. Howie Chan (radiologist) who discussed the CT and CTA results which are both negative. At 1510, discussed with Dr. Bonilla again who wants an EEG on the pt. Discussed care of pt with Dr. Anglin at 1518 who accepts to CDU, as long as Dr. Bonilla is alright with it. 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 [place] was done, including a troponin of 0.00. Head CT and head/neck CTA reveal no acute findings. EKG is sinus rhythm with nl AV/IV CT, nl axis and nl QTC. On examination, pt was an NIH of 0 and GCS of 15. In the ED course, pt was given fluids. Pt was not given TPA per Dr. Bonilla. Pt will be admitted with CDU with Dx of dizziness and diplopia and EEG will be performed per Dr. Bonilla's consult. Allergy noted and pt medications reviewed this visit. - Differential Dx Differential Diagnoses Neuro: Positive: Cerebrovascular Accident, Concussion, Hypertension, Metabolic Abnormality, Seizure Disorder, Transient Ischemic Attack - Diagnoses Provider Diagnoses: Diplopia, Dizziness During the Visit The Following Alert/Code Occurred: Code Prieto - 1414 - Physician Notifications Discussed Care Of Patient With: Nakia Bonilla Time Discussed With Above Provider: 14:10 Instructed by Provider To: Other - Advised CT and CTA, and calling a code prieto because the time of onset is known. Discussed care of pt with Dr. Howie Chan (radiologist) at [address] and CTA results which are both negative. Discharge - Sign-Out/Discharge Documenting (check all that apply): Discharge/Admit/Transfer - Admit to CDU - Discharge Plan Condition: Stable Disposition: ADMITTED TO [facility] - Billing Disposition and Condition Condition: STABLE Disposition: [facility] The documentation as recorded by the Kimberley davis Rebecca accurately reflects the service I personally performed and the decisions made by Luke orlando Barbara J, MD.
[2017-12-02 07:08] LABS: ABS Basophils 0 10^3/ul (0-0.2); ABS Eosinophils 0.1 10^3/ul (0-0.6); ABS Lymphocytes 1.3 10^3/ul (1.0-4.8); ABS Monocytes 0.3 10^3/ul (0-0.8); ABS Neutrophils 2.3 10^3/ul (1.5-7.7); ABS Nucleated RBC 0 10^3/ul; Eosinophil % 2.9 % (0-6); Hematocrit 43 % (42-52); Hemoglobin 15.1 g/dl (14.0-18.0); Lymphocyte % 32.2 % (25-47); Mean Corpuscular HGB Conc 35 g/dl (31-36); Mean Corpuscular Hemoglobin 31 pg (27-31); Mean Corpuscular Volume 89 fL (80-94); Mean Platelet Volume 8.4 um3 (7.4-10.4); Nucleated Red Blood Cells % 0.1; Platelet Count 158 10^3/ul (150-450); Red Blood Count 4.82 10^6/ul (4.0-5.4); Red Cell Distribution Width 13 % (10.5-15)
[2017-12-02 07:24] LABS: EGFR Non-African American 101.6 (>60)
[2017-12-02] MEDS ORDERED: Hydrochlorothiazide TAB* 25 MG PO SCH (09:00)
[2017-12-02] MEDS ORDERED: Atorvastatin* 20 MG TAB PO SCH (09:00)
[2017-12-02] MEDS ORDERED: Aspirin TAB* 325 MG PO SCH (09:00)
[2017-12-02] MEDS: Insulin LISPRO* 1 UNITS UNIT SUBCUT SCH ×2 (09:08→12:39)
[2017-12-02] MEDS: Heparin VIAL(*) 5000 UNITS/ML VIAL (FIVE THOUSAND) SUBCUT SCH (09:08)
[2017-12-02 14:07] VITALS: BP 145/86
--- NOTE | 2017-12-03 03:26 | EEG ---
ELECTROENCEPHALOGRAPHY: DATE OF STUDY: 12/01/17 - ROOM #440 ORDERING PHYSICIAN: Dr. Nakia Bonilla. LOCATION: Inpatient. CLINICAL PROBLEM: This is a 47-year-old man with a history of stroke symptoms in July consisting of left-sided numbness as well as stroke symptoms in October consisting of left-sided numbness and weakness, diplopia and dysarthria, who received tPA in October, who presented again on 12/01/17 with the same symptoms. In addition, he reports feeling very tired and his says he is having some difficulty finding words. Given these recurrent somewhat stereotype symptoms, EEG was requested to evaluate for epileptiform abnormalities. MEDICATIONS: 1. Percocet 5/325 one tablet q.6 p.r.n. 2. Metformin 1000 mg b.i.d. 3. Methocarbamol 500 mg four times a day p.r.n. 4. HydroDIURIL 25 mg daily. 5. Diazepam 5 mg q.12 p.r.n. 6. Atorvastatin 20 mg daily. 7. Aspirin 325 mg daily. REPORT: The waking background showed appropriate organization with clearly defined anterior to posterior voltage and frequency gradients. There was a well -defined posterior dominant rhythm of 10 Hz, which was symmetrical and showed normal reactivity. Anteriorly, there was an expected pattern of lower voltage, irregular, mixed faster frequencies. Photic stimulation and hyperventilation were not performed. Attenuation of the occipital rhythm accompanied drowsiness. The sleep background was appropriately organized with well-developed sleep spindles and vertex waves. The sleep transient showed appropriate morphology and were bilaterally synchronous and symmetrical. Toward the end of the recording, the patient reported seeing colors behind his eyes and a purple flash. There was no change in the EEG with these symptoms. Throughout the recording, there were no epileptiform discharges, focal features , paroxysmal features, or significant interhemispheric asymmetries. CLINICAL IMPRESSION: This is a normal waking and sleep EEG. There are no epileptiform abnormalities. [id number]/[facility] #: [id number] [facility]
--- NOTE | 2017-12-03 04:42 | PN ---
CC: Dr. Goodson * PROGRESS NOTE: DATE OF FOLLOWUP: 12/02/17 HISTORY: Overnight the patient reports that he feels much better. He believes he slept well last night. He feels that he is back to his baseline, but reports that during neuro checks, nursing have told him that his left manager workers compensation is slightly weaker than his right. Today, he tells me that his symptoms were not exactly like those which he has experienced in the past. In particular, he recalls that his left hand began to experience an electric shock like pain which then progressed up to his forearm and then finally up into his upper arm and shoulder. In addition, he recalls having difficulty finding the words that he wanted to say and this did not happen with his previous episodes either. He also mentions again that it is very unusual for him to be sleepy during the day and states that he has not slept during the day since he got out of the [employer] , which was in 1993. Yesterday, he was noted to be sleepy in the emergency department and also did fall asleep during the EEG as well. His EEG showed no epileptiform abnormalities and no areas of focal slowing. MEDICATIONS: Reviewed and include: 1. Aspirin 325 mg daily. 2. Lipitor 20 mg daily. 3. HydroDIURIL 25 mg daily. 4. Sliding scale insulin. 5. He also has methocarbamol and Percocet ordered, which he has not taken. PHYSICAL EXAMINATION: Vital Signs: Temperature 97.5 degrees, blood pressure 128/80, heart rate 79, oxygen saturation 99% on room air. General: He is a pleasant man in no acute distress. He was seated at the edge of his bed. His heart is in a regular rate and rhythm with no murmurs, rubs or gallops. Lungs are clear to auscultation bilaterally. Neurologic: He is fully awake, alert, and oriented. Speech is fluent without dysarthria or aphasia. Pupils are equal, round, and reactive from 4 to 2 mm bilaterally. Versions were full without nystagmus Again, at times, it did appear that his left eye did not completely abduct, but otherwise I saw no clear malalignment of his eyes. He did at extremes of gaze, report some diplopia again today. The patient's sensation and musculature is full and symmetric. Hearing is intact to finger rub. The palate elevates symmetrically and the tongue is midline. He has no pronator drift. Strength is full proximally and distally. I did check to know asymmetries and hand manager workers compensation. Sensation is intact to light touch in the upper and lower extremities with his baseline left leg sensory changes. [id number] is intact without ataxia. His gait is slightly antalgic favoring the left leg which he reports is his baseline. LABORATORY DATA: Reviewed includes a BNP from 7 o'clock this morning, which shows glucose 171 and sodium 138. His CBC is normal and unchanged. His telemetry has been normal. IMPRESSION: A 47-year-old man with a history of diabetes, hypertension, possible sleep apnea, and transient ischemic attack in July of this year, as well as an episode of possible transient ischemic attack/stroke in October of this year, status post tPA who came into the hospital yesterday with left-sided sensory changes, diplopia and word finding difficulties. He was not given tPA for the reasons stated yesterday. Today, he appears back to his baseline. His EEG was unremarkable. He has continued outpatient followup scheduled for workup of his potential stroke risk factors including evaluation with Pulmonology, Cardiology followup and Hematology followup. At this point, I am not going to change his antiplatelet regimen or any of his other medications. We discussed that should he experience recurrent stroke symptoms, he should present to the emergency department for evaluation. He should also follow up with Dr. Goodson after his evaluations as stated above. [id number]/[facility] #: [id number] SAMMY
--- NOTE | 2017-12-03 05:56 | DS ---
CC: Dr. Bonilla; Dr. Ayala; Dr. Goodson * DISCHARGE SUMMARY: DATE OF ADMISSION: 12/01/17 DATE OF DISCHARGE: 12/02/17 PATIENT OF: Sailaja Savage MD ATTENDING HOSPITALIST: Shad Oneal MD * (DICTATED BY ANDREA LEDEZMA) ADMISSION DIAGNOSES: 1. Left upper extremity numbness. 2. Diplopia. 3. History of transient ischemic attack back in July of this year with similar presenting symptoms. 4. History of cerebrovascular accident last month for which he received TPA for similar symptoms. 5. History of echocardiogram showing intracardiac shunt with possible patent foramen ovale. 6. History of chronic back pain. 7. Status post dorsal column stimulator placed in June of last year. 8. History of multiple lumbar diskectomy and hemilaminectomy back from 2012. 9. Diabetes mellitus, type 2. 10. Anxiety. 11. 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 DISCHARGE DIAGNOSES: 1. Left upper extremity numbness. 2. Diplopia. 3. History of transient ischemic attack back in July of this year with similar presenting symptoms. 4. History of cerebrovascular accident last month for which he received TPA for similar symptoms. 5. History of echocardiogram showing intracardiac shunt with possible patent foramen ovale. 6. History of chronic back pain. 7. Status post dorsal column stimulator placed in June of last year. 8. History of multiple lumbar diskectomy and hemilaminectomy back from 2012. 9. Diabetes mellitus, type 2. 10. Anxiety. 11. 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 ADMITTING PHYSICIAN: Dr. Savage. PRIMARY CARE PROVIDER: Dr. Benitez. NEUROLOGIST: Dr. Goodson. FLOATING DERRICK OPERATOR: Dr. Lisa. LEAD CONSULTANT: Dr. Schaefer. HOSE CEMENTER: Dr. Ayala. NEUROSURGEON: Dr. Lugo. CHIEF COMPLAINT: Left upper extremity numbness. BRIEF MEDICAL HISTORY: Mr. Slaughter is a pleasant 47-year-old gentleman with all the mentioned past medical history, who presented to the emergency room last night with complaints of recurrent left upper extremity numbness with associated diplopia for the past few hours. The patient notes that he had similar complaints since the beginning of this year that had thought to be related to TIAs and eventually was thought to have CVA that was treated with TPA last month. The patient notes that despite all these attempts he still continues to have intermittent episode of this numbness and diplopia that usually resolves spontaneously. He presented to the emergency room last night and had a brain CT that revealed no acute intracranial findings. He underwent a head CTA as well that showed no evidence of aneurysm, occlusion, or stenosis. Given his recurrent symptoms, the patient was thought to be admitted for neurology consult to the telemetry unit. HOSPITAL COURSE: The patient was admitted to the telemetry unit under hospitalist services. A neurology consult by Dr. Bonilla was obtained and EEG was ordered by Dr. Bonilla that revealed no evidence of any seizure activity. The patient had significant improvement of his symptoms overnight. He had laboratory workup that revealed absolutely normal CBC on both days as well as normal chemistry with the exception of slightly low sodium of 138. His glucose check was reasonable. He did not show any evidence of hypoglycemia during admission. His diplopia was reviewed and his eye exam was unremarkable. He had neuro checks that was done every 2 hours and then every 4 hours with no changes or neurologic deficits noted. The patient was seen by Dr. Bonilla again this morning and a full neurological exam was obtained. His numbness was resolved and he no longer had any double vision. Case was discussed with my attending and the patient seems to be stable for discharge this afternoon. We ruled out any possibility of a CVA or any acute events. He has followup appointments lined up for the next couple of weeks including Dr. Goodson in the next 3 days, Dr. Ayala for hematology consult tomorrow as well as primary care physician followup. DISCHARGE MEDICATIONS: Include: 1. Aspirin 325 mg p.o. daily. 2. Lipitor 20 mg p.o. daily. 3. Valium 5 mg p.o. b.i.d. 4. Hydrochlorothiazide 25 mg p.o. daily. 5. Metformin 1000 mg p.o. b.i.d. 6. Robaxin 500 mg p.o. 4 times a day. 7. Percocet 5/325 one tablet q.6 hours as needed for pain. ANDREA LEDEZMA [id number]/[facility] [place] #: [id number] [facility] HOSPITALLudin
== END 2017-12-02 14:35 | disposition home or self-care (01) ==
LOC: ED 13:32 → MEDTELE 16:40
PROVIDERS: ADMIT Internal Medicine; ATTEND Internal Medicine
DX: R20.0 Anesthesia of skin (principal); H53.2 Diplopia; Z86.73 Personal history of transient ischemic attack (TIA), and cerebral infarction without residual deficits; I25.2 Old myocardial infarction; Z96.9 Presence of functional implant, unspecified; E11.9 Type 2 diabetes mellitus without complications; F41.9 Anxiety disorder, unspecified; Z79.82 Long term (current) use of aspirin; I10 Essential (primary) hypertension; M54.9 Dorsalgia, unspecified; G89.29 Other chronic pain
CPT/HCPCS: 36415; 70450; 70496; 70498; 80048; 80053; 83605; 83735; 84484; 85025; 85610; 85730; 93005; 95819; 96365; 99285; A9270-GY; G0378; J1644; Q9967

== ENCOUNTER 2018-01-08 10:59 | Emergency (ER) | payer BC ==
[2018-01-08] MEDS ORDERED: NS 0.9% 1000 ML* 1,000 ML IV SCH (11:15)
[2018-01-08 11:28] LABS: ABS Basophils 0.1 10^3/ul (0-0.2); ABS Eosinophils 0.1 10^3/ul (0-0.6); ABS Lymphocytes 1.4 10^3/ul (1.0-4.8); ABS Monocytes 0.4 10^3/ul (0-0.8); ABS Neutrophils 3.7 10^3/ul (1.5-7.7); ABS Nucleated RBC 0 10^3/ul; Eosinophil % 2.4 % (0-6); Hematocrit 45 % (42-52); Hemoglobin 15.4 g/dl (14.0-18.0); Lymphocyte % 24.5 % (25-47); Mean Corpuscular HGB Conc 34 g/dl (31-36); Mean Corpuscular Hemoglobin 31 pg (27-31); Mean Corpuscular Volume 90 fL (80-94); Mean Platelet Volume 8.7 um3 (7.4-10.4); Nucleated Red Blood Cells % 0; Platelet Count 166 10^3/ul (150-450); Red Blood Count 5.01 10^6/ul (4.00-5.40); Red Cell Distribution Width 13 % (10.5-15); White Blood Count 5.7 10^3/ul (3.5-10.8)
--- NOTE | 2018-01-08 11:31 | RAD ---
INDICATION: CVA COMPARISON: CT brain December 01, 2017 TECHNIQUE: Noncontrast axial source images were acquired from the skull base to the vertex. FINDINGS: Ventricles/sulci: The ventricles and cisterns are normal in size and configuration for age. Brain parenchyma: There is no focal parenchymal finding, evidence of intracranial mass, or intracranial mass effect. Intracranial hemorrhage:None. Extra-axial spaces: There are no abnormal extra axial fluid collections or evidence of extra-axial mass. Calvarium: There is no calvarial fracture or other calvarial abnormality. Scalp: There is no evidence of scalp or extracalvarial soft tissue abnormality. Paranasal sinuses/mastoid: The paranasal sinuses and mastoid air cells are clear. Other: None. IMPRESSION: NEGATIVE EXAMINATION, UNCHANGED Findings called to ED at 1128 hours
[2018-01-08 11:36] LABS: INR 0.98 (0.77-1.02)
[2018-01-08 11:44] LABS: EGFR Non-African American 93.2 (>60)
[2018-01-08] MEDS ORDERED: Clopidogrel TAB* 75 MG PO ONE (12:27)
[2018-01-08 12:51] VITALS: BP 147/82
--- NOTE | 2018-01-08 13:03 | ED ---
Mary Carmen Dubose Emily, scribed for AliciarosieJurgen on 01/08/18 at 1118 . Neurological HPI - HPI Summary HPI Summary: This patient is a 48 year old M presenting to [facility] accompanied by family with a chief complaint of L-sided facial droop that began at 1000. The patient rates the pain 0/10 in severity. Symptoms aggravated by nothing. Symptoms alleviated by nothing. Patient reports double vision and slurred speech. Per family, the facial droop appears improved. Pt reports he has had two TIAs and a CVA this year. Per family, pt received TPA for a CVA in October. 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 Onset/Duration: Sudden Onset, Started hours ago, Still Present Timing: Constant Onset Severity: Mild Current Severity: Mild Neurological Deficit Location: Facial Pain Intensity: 0 Pain Scale Used: 0-10 Numeric Aggravating: Nothing Alleviating: Nothing Associated Signs and Symptoms: Positive: Impaired Speech - Additional Pertinent History Primary Care Physician: [id number] - Allergy/Home Medications Allergies/Adverse Reactions: Allergies Allergy/AdvReac Type Severity Reaction Status Date / Time Penicillins Allergy Unknown Verified 12/17/17 07:58 Reaction Details Home Medications: Home Medications Diazepam TAB(*) [Valium TAB(*)] 5 mg PO TID PRN 01/08/18 [History Confirmed ] Methocarbamol TAB* [Robaxin 500 MG TAB*] 500 mg PO TID PRN 01/08/18 [History Confirmed 01/08/18] oxyCODONE/Acetamin 5/325 MG* [Percocet 5/325 TAB*] 1 tab PO Q4H PRN 01/08/18 [ History Confirmed 01/08/18] PMH/Surg Hx/FS Hx/Imm Hx Previously Healthy: No Endocrine/Hematology History: Reports: Hx Diabetes Denies: Hx Thyroid Disease Cardiovascular History: Reports: Hx Hypercholesterolemia, Hx Hypertension Denies: Hx Angina, Hx Coronary Artery Disease, Hx Deep Vein Thrombosis, Hx Myocardial Infarction, Hx Pacemaker/ICD, Hx Valvular Heart Disease Respiratory History: Reports: Hx Asthma, Hx Seasonal Allergies Denies: Hx Chronic Obstructive Pulmonary Disease (COPD) GI History: Denies: Hx Ulcer History: Denies: Hx Dialysis, Hx Renal Disease Musculoskeletal History: Reports: Hx Arthritis - LOW BACK, Hx Back Problems Sensory History: Reports: Hx Contacts or Glasses Denies: Hx Hearing Aid Opthamlomology History: Reports: Hx Contacts or Glasses Neurological History: Reports: Hx CVA - 10/2017, Hx Nerve Disease - left leg numb /tingling d/t back inj, Hx Transient Ischemic Attacks (TIA) - Jul 2017 Denies: Hx Seizures, Hx Spinal Cord Injury, Other Neuro Impairments/Disorders Psychiatric History: Reports: Hx Anxiety Denies: Hx Panic Disorder - Surgical History Surgery Procedure, Year, and Place: 05/2010 DOUBLE SYDNEE - LAMINECTOMY DR. NELSON. 07/[address] NELSON. 07/[address] [place]. 2016 SPINAL STIMULATOR PLACEMENT - AND REMOVAL - LEAD REMOVAL VERIFIED VIA CLEARANCE XRAYS PER DR. CHAN 05.25.2017. JUN 2017- PERMANENT STIMULATOR PLACEMENT Hx Anesthesia Reactions: No - Immunization History Date of Tetanus Vaccine: up to date per pt Infectious Disease History: Denies: Hx Clostridium Difficile, Hx Hepatitis, Hx Human Immunodeficiency Virus (HIV), Hx of Known/Suspected MRSA, Hx Shingles, Hx Tuberculosis, Hx Known/ Suspected VRE, Hx Known/Suspected VRSA, History Other Infectious Disease - Family History Known Family History: Positive: Cardiac Disease, Other - cancer - Social History Occupation: Disabled Lives: With Family Alcohol Use: Rare Alcohol Amount: 1 beer per month Hx Substance Use: No Substance Use Type: Reports: Prescribed Hx Tobacco Use: No Smoking Status (MU): Never Smoked Tobacco Have You Smoked in the Last Year: No Review of Systems Positive: Diplopia Neurological: Other - L-sided facial droop Positive: Slurred Speech All Other Systems Reviewed And Are Negative: Yes Physical Exam - Summary Physical Exam Summary: Appearance: Well appearing, no pain distress Skin: warm, dry, reflects adequate perfusion Head/face: normal Eyes: EOMI, JALEEL ENT: normal Neck: supple, non-tender Respiratory: CTA, breath sounds present Cardiovascular: RRR, pulses symmetrical Abdomen: non-tender, soft Bowel: present Musculoskeletal: normal, strength/ROM intact Neuro: normal, sensory motor intact, A&Ox3 Triage Information Reviewed: Yes Vital Signs On Initial Exam: Initial Vitals Temp Pulse Resp BP Pulse Ox 98.2 F 88 20 159/97 98 01/08/18 11:02 01/08/18 11:02 01/08/18 11:02 01/08/18 11:02 01/08/18 11:02 Vital Signs Reviewed: Yes - Petra Coma Scale Best Eye Response: 4 - Spontaneous Best Motor Response: 6 - Obeys Commands Best Verbal Response: 5 - Oriented Coma Scale Total: 15 Diagnostics - Vital Signs Vital Signs Temp Pulse Resp BP Pulse Ox 01/08/18 11:02 98.2 F 88 20 159/97 98 - Laboratory Lab Results: Lab Results 01/08/18 01/08/18 01/08/18 Range/Units 11:15 11:15 11:15 WBC 5.7 (3.5-10.8) 10^3/ul RBC 5.01 (4.00-5.40) 10^6/ul Hgb 15.4 (14.0-18.0) g/dl Hct 45 (42-52) % MCV 90 (80-94) fL MCH 31 (27-31) pg MCHC 34 (31-36) g/dl RDW 13 (10.5-15) % Plt Count 166 (150-450) 10^3/ul MPV 8.7 (7.4-10.4) um3 Neut % (Auto) 65.1 (38-83) % Lymph % (Auto) 24.5 L (25-47) % [place] % (Auto) 7.1 H (0-7) % Eos % (Auto) 2.4 (0-6) % Baso % (Auto) 0.9 (0-2) % Absolute Neuts (auto) 3.7 (1.5-7.7) 10^3/ul Absolute Lymphs (auto) 1.4 (1.0-4.8) 10^3/ul Absolute Monos (auto) 0.4 (0-0.8) 10^3/ul Absolute Eos (auto) 0.1 (0-0.6) 10^3/ul Absolute Basos (auto) 0.1 (0-0.2) 10^3/ul Absolute Nucleated RBC 0 10^3/ul Nucleated RBC % 0 INR (Anticoag Therapy) 0.98 (0.77-1.02) APTT 34.2 (26.0-36.3) seconds Sodium 138 (135-145) mmol/L Potassium 3.7 (3.5-5.0) mmol/L Chloride 104 (101-111) mmol/L Carbon Dioxide 30 (22-32) mmol/L Anion Gap 4 (2-11) mmol/L BUN 17 (6-24) mg/dL Creatinine 0.88 (0.67-1.17) mg/dL Est GFR ( Amer) 112.8 (>60) Est GFR (Non-Af Amer) 93.2 (>60) BUN/Creatinine Ratio 19.3 (8-20) Glucose 167 H (70-100) mg/dL POC Glucose (mg/dL) (70-100) mg/dL Calcium 9.1 (8.6-10.3) mg/dL Total Bilirubin 0.50 (0.2-1.0) mg/dL AST 23 (13-39) U/L ALT 37 (7-52) U/L Alkaline Phosphatase 66 (34-104) U/L Total Protein 6.4 (6.4-8.9) g/dL Albumin 4.2 (3.2-5.2) g/dL Globulin 2.2 (2-4) g/dL Albumin/Globulin Ratio 1.9 (1-3) //18 Range/Units 11:15 WBC (3.5-10.8) 10^3/ul RBC (4.00-5.40) 10^6/ul Hgb (14.0-18.0) g/dl Hct (42-52) % MCV (80-94) fL MCH (27-31) pg MCHC (31-36) g/dl RDW (10.5-15) % Plt Count (150-450) 10^3/ul MPV (7.4-10.4) um3 Neut % (Auto) (38-83) % Lymph % (Auto) (25-47) % [place] % (Auto) (0-7) % Eos % (Auto) (0-6) % Baso % (Auto) (0-2) % Absolute Neuts (auto) (1.5-7.7) 10^3/ul Absolute Lymphs (auto) (1.0-4.8) 10^3/ul Absolute Monos (auto) (0-0.8) 10^3/ul Absolute Eos (auto) (0-0.6) 10^3/ul Absolute Basos (auto) (0-0.2) 10^3/ul Absolute Nucleated RBC 10^3/ul Nucleated RBC % INR (Anticoag Therapy) (0.77-1.02) APTT (26.0-36.3) seconds Sodium (135-145) mmol/L Potassium (3.5-5.0) mmol/L Chloride (101-111) mmol/L Carbon Dioxide (22-32) mmol/L Anion Gap (2-11) mmol/L BUN (6-24) mg/dL Creatinine (0.67-1.17) mg/dL Est GFR ( Amer) (>60) Est GFR (Non-Af Amer) (>60) BUN/Creatinine Ratio (8-20) Glucose (70-100) mg/dL POC Glucose (mg/dL) 174 H (70-100) mg/dL Calcium (8.6-10.3) mg/dL Total Bilirubin (0.2-1.0) mg/dL AST (13-39) U/L ALT (7-52) U/L Alkaline Phosphatase (34-104) U/L Total Protein (6.4-8.9) g/dL Albumin (3.2-5.2) g/dL Globulin (2-4) g/dL Albumin/Globulin Ratio (1-3) Result Diagrams: 01/08/18 11:15 01/08/18 11:15 Lab Statement: Any lab studies that have been ordered have been reviewed, and results considered in the medical decision making process. - CT Brain CT CT Interpretation Completed By: Radiologist - CT brain reveals, per radiologist , negative examination, unchanged. ED physician has reviewed this radiology report. - EKG 1135 Cardiac Rate: NL EKG Rhythm: Sinus Rhythm - [address] Segment: Normal Ectopy: None EKG Interpretation: No acute changes NIH Scale - NIH Scale Level of Consciousness: Alert/Keenly Responsive Ask Patient the Month and His/Her Age: Both Correct Ask Pt to Open/Close Eyes and Net Software Architect/Release Non-Paretic Hand: Both Correctly Best Gaze (Only Horizontal Eye Movement): Normal Visual Field Testing: No Visual Loss Facial Paresis-Pt to Smile & Close Eyes or Grimace Symmetry: Normal/Symmetrical Motor Function - Right Arm: No Drift-Holds 10 Seconds Motor Function - Left Arm: No Drift-Holds 10 Seconds Motor Function - Right Leg: No Drift-Holds 10 Seconds Motor Function - Left Leg: No Drift-Holds 10 Seconds Limb Ataxia-Must be out of Proportion to Weakness Present: Absent Sensory (Use Pinprick to Test Arms/Legs/Trunk/Face): Normal Best Language (Describe Picture, Name Items): No Aphasia Dysarthria (Read Several Words): Normal Extinction and Inattention: No Abnormality Total Score: 0 Course/Dx - Course Course Of Treatment: This patient is a 48 year old M presenting to [facility] accompanied by family with a chief complaint of L-sided facial droop that began at 1000. Pt reports he has had two TIAs and a CVA this year. CT brain reveals, per radiologist, negative examination, unchanged. Blood work and UA obtained. In the ED course the patient was given fluids. Dr. Avalos saw the patient, believes he has a complex migraine, unlikely CVA present. Follow up with Dr. Avalos as an outpatient. Patient will be discharged with prescription for aspirin and plavix. The patient is agreeable with this plan. - Differential Dx Differential Diagnoses Neuro: Positive: Cerebrovascular Accident, Headache, Intracranial Bleed, Transient Ischemic Attack - Diagnoses Provider Diagnoses: Migraine, History of CVA (cerebrovascular accident) During the Visit The Following Alert/Code Occurred: Code Mullen - Physician Notifications Discussed Care Of Patient With: Catalino Avalos Time Discussed With Above Provider: 11:17 Instructed by Provider To: Other - Consult with Dr. Avalos (neurology) at 1117. Discussed plan of care for the patient. Consult with Dr. Avalos (neurology) at 1158. He recommends pt be discharge home. - Critical Care Time Critical Care Time: 30-74 min Discharge - Sign-Out/Discharge Documenting (check all that apply): Discharge/Admit/Transfer - Discharge home - Discharge Plan Condition: Stable Disposition: HOME Prescriptions: Aspirin 81 mg CHEW TAB* 81 mg PO DAILY #30 tab.chew Clopidogrel TAB* [Plavix TAB*] 75 mg PO DAILY #30 tab Patient Education Materials: Clopidogrel (By mouth), Migraine Headache (ED) Referrals: Rajendra Benitez MD [Primary Care Provider] - 3 Days Catalino Avalos MD [Medical Doctor] - 3 Days Additional Instructions: RETURN TO THE EMERGENCY DEPARTMENT FOR NEW OR WORSENING SYMPTOMS - Billing Disposition and Condition Condition: STABLE Disposition: Home The documentation as recorded by the Mary Carmen davis Emily accurately reflects the service I personally performed and the decisions made by , Jurgen Reyes.
--- NOTE | 2018-01-08 15:57 | CONS ---
NEUROLOGY CONSULTATION REPORT: DATE OF CONSULT: 01/08/18 PRIMARY PROVIDER: Jurgen Reyes MD REASON FOR CONSULT: Neurology was consulted for the evaluation and management for possible stroke. Adán Alonso was activated. CHIEF COMPLAINT: Left face droop HISTORY OF PRESENT ILLNESS: Mr. Stuart Slaughter is a 48-year-old right-handed man with history of type 2 diabetes, hypertension, three low back surgeries in 2009, 2012, 2016 where dorsal column stimulator was planned in June 2017, history of questionable TIA/stroke in July 2017, October of 2017, and November 2017 where he presented with recurrent similar symptoms of dizziness, double vision, left-sided numbness. The symptoms start usually when the patient is out shopping. For instance, in July the patient was out shopping in [employer], in October grocery shopping with his , in November [employer] running some errands, and today the patient was out shopping with his and children at [facility]. The patient woke up today with normal state of health at 6.00 a.m. He was walking around, pushing a shopping cart at 10:30 when he developed left-sided numbness, left facial droop, double vision that is both binocular and monocular, as well as drooling on the left side of the face. These are similar symptoms to what he has had in the past. The symptoms were noticed by the patient's spouse, who rushed and brought him here to the [facility]. The patient today stated that he has headaches since he arrived to the emergency room. The headaches are described as pressure like sensation on the left side of the face, nonradiating , 4/10 in severity, and associated with photo and phonophobia. He felt nauseated earlier as well. The patient is taking aspirin 325 mg daily and statin therapy. He has not taken any of the oxycodone over the last few weeks. He has not taken the muscle relaxers either. He did take his metformin and hydrochlorothiazide this morning. Adán Alonso was activated today and the NIH stroke scale was 1 for some sensory loss on the left side of the face. The patient was deemed not a candidate for IV tPA due to low NIH stroke scale, he received tPA in October 2017 which is within the 3-month period. I reviewed Dr. Bonilla's neurology consultation from 12/01/17. The patient had an EEG done to rule out any possible sensory seizures. There were no epileptiform abnormalities on that study. It was normal. In addition, the patient recently had a CTA of the head on 12/01/17 for which the head and neck was captured during this study that showed no aneurysm, vascular malformation, occlusion, or stenosis of the intracranial circulation. There was no internal carotid artery stenosis. Important to add that the patient is being followed up by cardiology at the [facility] and has a scheduled repeat LOLA to confirm the PFO and possible PFO closure within the next few weeks. In addition, he is scheduled to undergo a sleep evaluation done tonight. Furthermore, the patient was evaluated by a dry house tender recently for the low antithrombin III and antiplatelet therapy was recommended only. PAST MEDICAL HISTORY: PFO seen on a previous LOLA, diabetes, hypertension, asthma, back pain with hemilaminectomy in 2009, 2012 and diskectomy and spinal dorsal column stimulator planted in June 2017. The dorsal column stimulator is MRI incompatible according to the patient. HOME MEDICATIONS: 1. Oxycodone 5/325 mg 1 tablet every 6 hours as needed. The patient is not taking this medication for the past 3 weeks. 2. Metformin 1000 mg b.i.d. 3. Methocarbamol 500 mg 4 times daily as needed. 4. Hydrochlorothiazide 25 mg daily. 5. Diazepam 5 mg every 12 hours as needed. The patient has not taken this medication for the last 3 weeks. 6. Atorvastatin 20 mg daily. 7. Aspirin 325 mg daily. ALLERGIES: To PENICILLIN. FAMILY HISTORY: There are no family history of stroke or seizures. His father had a heart attack in his 20s and he had been exposed to [employer]. SOCIAL HISTORY: The patient denied any tobacco or alcohol use. The patient is on disability since 2015. 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 He feels stressed out, but he definitely has had more stress in the past few years than his current state right now. REVIEW OF SYSTEMS: A 14-point review of systems was obtained, but otherwise negative except for what is mentioned in the HPI. PHYSICAL EXAMINATION: Vital Signs: Temperature of 98.2, heart rate of 86, respiratory rate of 25, oxygen saturation of 94% and blood pressure 134/89. General: This is a well-nourished, well-developed man in no acute distress. He is slightly overweight. Head is normocephalic and atraumatic without any obvious abnormalities. Eyes: Conjunctivae/corneas are clear. Mild dysconjugate gaze. No scleral icterus. Lungs are clear to auscultation bilaterally. He has nonlabored breathing. Cardiovascular: Regular rate and rhythm. Normal S1, S2. Radial pulses are palpable. Extremities: Normal range of motion with no cyanosis, hammertoes or high arches. Skin: No skin lesions or lacerations. Psych: Affect is broad and normal mood. He does have fran indifference when I informed him that he is not having a stroke and he laughed and said "send me home then." He is not too concerned about his deficits. Neurological Examination: Mental Status: Awake, alert, and oriented to person, place and time, and to general circumstance. Speech and language including expression, naming, repetition, and comprehension were assessed and found to be normal. Cranial Nerves: Normal confrontation testing bilaterally. Pupils are mid range and reactive to light. Normal consensual response. Extraocular muscles are intact. He does complain of monocular and binocular diplopia that is horizontal that seem to improve during the evaluation. He does not have any nystagmus. Sensation is intact in forehead, cheeks and jaw region bilaterally. There is no facial droop or facial asymmetry. He is able to hear throughout the history process. He is able to elevate the shoulders symmetrically. The tongue is symmetrical and midline with no atrophy or fasciculation. Another important note to add is the patient had splitting of the vibratory sensation where he was able to sense vibration on the right frontal bone versus decreased sensation on the left. Motor: 5/5 strength through the upper and lower extremities proximal and distally. There is no pronator drift. There was a reported left leg weakness in the past examinations, but I was unable to appreciate that on today's exam. He did have increase of spasms in the left calf upon examination. Reflexes are 2+ in the upper extremities, 3+ in the lower extremities bilaterally. Ankle reflexes are 1+ bilaterally. Flexor plantar response bilaterally. Sensation is intact to light touch throughout except for reduced sensation to the left side of the arm and left side of the leg. Again, this was noted on previous examinations. Coordination: Normal [id number] and rapid alternating movement. Gait is station, wide based with no ataxia. LABORATORY DATA/DIAGNOSTIC STUDIES: WBC of 5.7, platelets are 166,000. INR is 0.98. Sodium of 138, potassium of 3.7, chloride of 104, glucose of 167. CT head without contrast was completed today and showed no acute intracranial abnormalities. I personally reviewed this image. Electrocardiogram showed normal sinus rhythm with a rate of 60-99. ASSESSMENT: Stuart Slaughter is a 48-year-old man who has a history of diabetes mellitus type 2, allergies, hypertension, dyslipidemia, chronic low back pain status post multiple low back surgeries with a dorsal column stimulator that is MRI incompatible, who presented with recurrent stroke like symptoms for the past 6 months. He has presented to the ED 4 times and received IV tPA one of those times. The symptoms are stereotypical and seem to be induced by stressors such as going out shopping or running errands. On examination, the patient has an NIH stroke scale of 1 due to reduced sensation on the left side. He did have splitting of the vibratory sensation on the left forehead as well as both monocular and binocular horizontal diplopia. There may be a questionable misalignment of the eyes that are causing the diplopia. A CT head was obtained and showed no evidence of acute infarcts. He has no hypodensity in the posterior fossa, in the isabella, midbrain or the cerebellum. He has no evidence of previous strokes in the past on intracranial imaging. He did have an EEG in November that was normal. At this time, I do not suspect the patient is having a vascular phenomenon such as a transient ischemic attack or stroke. Given that the symptoms are recurrent , he is compliant to all stroke prevention such as antiplatelet therapy and statin therapy, and the CT finding does not suggest a new or old stroke. . He is not a candidate for IV tPA given the low NIH stroke scale and the low suspicion for stroke. In the setting of headaches, the patient may be experiencing complicated migraines. Other possible diagnoses include acute stress reaction as the family is undergoing through many financial stressors at home. The patient is getting evaluated for PFO closure at the [facility]. Furthermore, he is also getting evaluated for obstructive sleep apnea tonight, so he can start using his CPAP if needed. The patient has not scheduled an appointment with Dr. Goodson, which I urged him to do to prevent further hospitalization in the future. His blood pressure seemed to be under well control, although was slightly hypotensive in one of the recordings. I encouraged him to check his blood pressure regularly and discuss with his PCP regarding decreasing some of his antihypertensives. To optimize his primary stroke prevention, I will decrease the aspirin to 81 mg and start him on Plavix 75 mg daily. He was deemed not a candidate for antithrombotic therapy by the dry house tender in the setting of a low antithrombin III. Lastly, it seems like the patient's recurrent stroke-like symptoms started a month after the spinal cord stimulator was implanted. I urged the patient to discuss this further with his neurosurgeon and see if the setting needs to be changed. The patient stated that the stimulator is working fine and significantly helping with his pain. I spent a total of 70 minutes and greater than 50% was spent directly reviewing the medical chart, obtaining history, examining the patient, education counseling, and discussion of the treatment plan with the patient, the patient's spouse, net coordinator Reina, and Dr. Jurgen Reyes. We agree that the patient is safe to go home with a change in medication regimen. He should immediately schedule an appointment with Dr. Charly Goodson within the next 6 to 8 weeks. I urged him to continue the sleep study, not to cancel it for tonight. We also discussed starting magnesium oxide 400 mg nightly for headache prevention, but mostly for the treatment to help with his spasms. [id number]/[facility] #: [id number] SAMMY
== END 2018-01-08 15:04 | disposition home or self-care (01) ==
LOC: ED 10:59
DX: G43.909 Migraine, unspecified, not intractable, without status migrainosus (principal); Z86.73 Personal history of transient ischemic attack (TIA), and cerebral infarction without residual deficits; E11.9 Type 2 diabetes mellitus without complications; E78.00 Pure hypercholesterolemia, unspecified; I10 Essential (primary) hypertension; J45.909 Unspecified asthma, uncomplicated; F41.9 Anxiety disorder, unspecified
CPT/HCPCS: 36415; 70450; 80053; 85025; 85610; 85730; 93005; 99284; A9270-GY

== ENCOUNTER 2018-01-22 08:41 | Observation (INO) | payer BC ==
[2018-01-22] MEDS ORDERED: NS 0.9% 1000 ML*IV.FLUID IV ONE (08:55)
[2018-01-22] MEDS ORDERED: Vancomycin(*) 1,000 MG in NS 0.9% 250 ML* 250 ML IVPB ONE (09:04)
--- NOTE | 2018-01-22 09:05 | ED ---
HPI Chest Pain - HPI Summary HPI Summary: This patient is a 48 year old M [facility] by with a chief complaint of chest pain since this AM. Pt endorses patent foramen ovale closure surgery yesterday. Today, he endorses fever, chest tightness and pressure like theres a belt across my chest, SOB, nausea, weakness, inability to focus, and cough. He endorsed a few episodes of skipped beats last night. PMHx TIA, CVA, asthma (seasonal). Pt not currently taking abx, rx Plavix yesterday. Other meds: metformin, hydrochlorothiazide, atorvastatin, no ASA yesterday. Sitting, upright position is an aggrevating factor. - History of Current Complaint Chief Complaint: EDChestPainROMI Time Seen by Provider: 01/22/18 08:48 Pain Intensity: 8 - Additional Pertinent History Primary Care Physician: [id number] - Allergy/Home Medications Allergies/Adverse Reactions: Allergies Allergy/AdvReac Type Severity Reaction Status Date / Time Penicillins Allergy Unknown Verified 01/22/18 08:59 Reaction Details PMH/Surg Hx/FS Hx/Imm Hx Endocrine/Hematology History: Reports: Hx Diabetes Denies: Hx Thyroid Disease Cardiovascular History: Reports: Hx Hypercholesterolemia, Hx Hypertension Denies: Hx Angina, Hx Coronary Artery Disease, Hx Deep Vein Thrombosis, Hx Myocardial Infarction, Hx Pacemaker/ICD, Hx Valvular Heart Disease Respiratory History: Reports: Hx Asthma, Hx Seasonal Allergies Denies: Hx Chronic Obstructive Pulmonary Disease (COPD) GI History: Denies: Hx Ulcer History: Denies: Hx Dialysis, Hx Renal Disease Musculoskeletal History: Reports: Hx Arthritis - LOW BACK, Hx Back Problems Sensory History: Reports: Hx Contacts or Glasses Denies: Hx Hearing Aid Opthamlomology History: Reports: Hx Contacts or Glasses EENT History: Denies: Hx Deafness Neurological History: Reports: Hx CVA - 10/2017, Hx Nerve Disease - left leg numb /tingling d/t back inj, Hx Transient Ischemic Attacks (TIA) - Jul 2017 Denies: Hx Seizures, Hx Spinal Cord Injury, Other Neuro Impairments/Disorders Psychiatric History: Reports: Hx Anxiety Denies: Hx Panic Disorder - Surgical History Surgery Procedure, Year, and Place: 05/2010 DOUBLE SYDNEE - LAMINECTOMY DR. NELSON. 07/[address] NELSON. 07/[address] YORK. 2016 SPINAL STIMULATOR PLACEMENT - AND REMOVAL - LEAD REMOVAL VERIFIED VIA CLEARANCE XRAYS PER DR. CHAN 05.25.2017. JUN 2017- PERMANENT STIMULATOR PLACEMENT Hx Anesthesia Reactions: No - Immunization History Date of Tetanus Vaccine: up to date per pt Infectious Disease History: No Infectious Disease History: Denies: Hx Clostridium Difficile, Hx Hepatitis, Hx Human Immunodeficiency Virus (HIV), Hx of Known/Suspected MRSA, Hx Shingles, Hx Tuberculosis, Hx Known/ Suspected VRE, Hx Known/Suspected VRSA, History Other Infectious Disease, Traveled Outside the [place] in Last 30 Days - Family History Known Family History: Positive: Cardiac Disease, Other - cancer - Social History Lives: With Family Alcohol Use: Rare Alcohol Amount: 1 beer per month Hx Substance Use: No Substance Use Type: Reports: None Hx Tobacco Use: No Smoking Status (MU): Never Smoked Tobacco Have You Smoked in the Last Year: No Review of Systems Positive: Fever Positive: Palpitations, Chest Pain Positive: Shortness Of Breath, Cough Positive: Nausea Neurological: Other - "unable to focus" Positive: Weakness All Other Systems Reviewed And Are Negative: Yes Physical Exam - Summary Physical Exam Summary: Appearance: The patient is well-nourished in no acute distress and in no acute pain. Skin: The skin is warm and dry and skin color reflects adequate perfusion. HEENT: The head is normocephalic and atraumatic. The pupils are equal and reactive. The conjunctivae are clear and without drainage. Nares are patent and without drainage. Mouth reveals moist mucous membranes and the throat is without erythema and exudate. The external ears are intact. The ear canals are patent and without drainage. The tympanic membranes are intact. Neck: The neck is supple with full range of motion and non-tender. There are no carotid bruits. No JVD. Respiratory: Chest is non-tender. Lungs are clear to auscultation, lung sounds generally decreased, more so on the left than on the right. Cardiovascular: Tachycardic. There is no murmur or rub auscultated. There is no peripheral edema and pulses are symmetrical and equal. Abdomen: The abdomen is soft and non-tender. There are normal bowel sounds heard in all four quadrants and there is no organomegaly palpated. Musculoskeletal: There is no back tenderness noted. Extremities are non-tender with full range of motion. There is good capillary refill. There is no peripheral edema or calf tenderness elicited. Neurological: Patient is alert and oriented to person, place and time. The patient has symmetrical motor strength in all four extremities. Cranial nerves are grossly intact. Deep tendon reflexes are symmetrical and equal in all four extremities. Psychiatric: The patient has an appropriate affect and does not exhibit any anxiety or depression. Triage Information Reviewed: Yes Vital Signs On Initial Exam: Initial Vitals Temp Pulse Resp BP Pulse Ox 101.3 F 128 22 121/79 93 01/22/18 08:43 01/22/18 08:43 01/22/18 08:43 01/22/18 08:43 01/22/18 08:43 Vital Signs Reviewed: Yes Diagnostics - Vital Signs Vital Signs Temp Pulse Resp BP Pulse Ox 01/22/18 08:54 133 24 116/98 94 01/22/18 08:52 19 01/22/18 08:43 101.3 F 128 22 121/79 93 - Laboratory Result Diagrams: 01/22/18 09:10 01/22/18 09:10 Lab Statement: Any lab studies that have been ordered have been reviewed, and results considered in the medical decision making process. - Radiology CXR Xray Interpretation: No Acute Changes Radiology Interpretation Completed By: Radiologist - No active cardiopulmonary disease. - EKG 0924 Cardiac Rate: Tachycardia - 113 EKG Rhythm: Sinus Tachycardia ST Segment: Normal Ectopy: None Re-Evaluation - Re-Evaluation First Eval Re-Evaluation Time: 09:47 Change: Unchanged Comment: Taking a look at surgery wound. Appears clean, no sign of infection. Second Eval Re-Evaluation Time: 12:28 Change: Improved Comment: Checked if vitals improved after tylenol. Still tachycardic, blood pressure did decrease a little. Chest Pain Course/Dx - Course Course Of Treatment: Mr. Slaughter underwent closure of a PFO yesterday in [facility]. He started feeling unwell last evening and woke up this morning with a fever. He endorses no other symptoms. He was febrile and tachycardic on arrival which did not improve with IV fluids and Tylenol. He was given vancomycin and cefepime in the emergency department as well as the fluid. Chest x-ray and UA were unremarkable as was his groin wound. The hospitalist admitting him for observation. - Diagnoses Provider Diagnoses: Sepsis - Provider Notifications Discussed Care Of Patient With: Rico Ortez Time Discussed With Above Provider: 11:07 Instructed by Provider To: Other - discuss pt sx s/p surgery yesterday, he agrees infection this soon unlikely. If pt looks ok, discharge ok. Discharge - Sign-Out/Discharge Documenting (check all that apply): Patient Departure - admit - Discharge Plan Condition: Fair Disposition: ADMITTED TO [facility] - Billing Disposition and Condition Condition: FAIR Disposition: Admitted to [facility] Consult Consult: 1233 Dr. Edwards, discussed giving pt additional abx. 1330 Dr. Edwards, accepted admission to [facility].
[2018-01-22 09:26] LABS: ABS Basophils 0 10^3/ul (0-0.2); ABS Eosinophils 0.1 10^3/ul (0-0.6); ABS Lymphocytes 0.1 10^3/ul (1.0-4.8); ABS Monocytes 0.6 10^3/ul (0-0.8); ABS Neutrophils 9.2 10^3/ul (1.5-7.7); ABS Nucleated RBC 0 10^3/ul; Hematocrit 46 % (42-52); Hemoglobin 16.3 g/dl (14.0-18.0); Lymphocyte % 1.3 % (25-47); Mean Corpuscular HGB Conc 35 g/dl (31-36); Mean Corpuscular Hemoglobin 31 pg (27-31); Mean Corpuscular Volume 89 fL (80-94); Mean Platelet Volume 8.7 um3 (7.4-10.4); Nucleated Red Blood Cells % 0.1; Platelet Count 153 10^3/ul (150-450); Red Blood Count 5.18 10^6/ul (4.00-5.40); Red Cell Distribution Width 13 % (10.5-15); White Blood Count 10.1 10^3/ul (3.5-10.8)
[2018-01-22 09:43] LABS: EGFR Non-African American 80.4 (>60); INR 1.07 (0.77-1.02)
--- NOTE | 2018-01-22 10:09 | RAD ---
HISTORY: sepsis COMPARISONS: October 25, 2017 VIEWS: 1: frontal portable view of the chest at 9:36 AM FINDINGS: LINES AND TUBES: None. CARDIOMEDIASTINAL SILHOUETTE: The cardiomediastinal silhouette is normal for portable technique. PLEURA: The costophrenic angles are sharp. No pleural abnormalities are noted. LUNG PARENCHYMA: The lungs are clear. ABDOMEN: The upper abdomen is clear. There is no subphrenic gas. BONES AND SOFT TISSUES: No bone or soft tissue abnormalities are noted. IMPRESSION: NO ACTIVE CARDIOPULMONARY DISEASE.
[2018-01-22 10:29] LABS: Urine Appearance Clear; Urine Blood Negative (Negative); Urine Color Yellow; Urine Ketones Trace (Negative); Urine Protein Negative (Negative); Urine Specific Gravity 1.021 (1.010-1.030); Urine Urobilinogen Negative (Negative)
[2018-01-22] MEDS ORDERED: Acetaminophen TAB* 325 MG PO ONE (10:57)
[2018-01-22] MEDS ORDERED: Cefepime(*) 1 GM in NS 0.9% 50 ML* 50 ML IVPB ONE (12:32)
[2018-01-22] MEDS ORDERED: Cefepime 2 GM in Dextrose(*) 2 GM/50 ML BAG IV ONE ×2 (12:43→12:44)
[2018-01-22] MEDS ORDERED: Diazepam TAB(*) 5 MG PO PRN (14:10)
[2018-01-22] MEDS ORDERED: Methocarbamol TAB* 500 MG PO PRN (14:10)
[2018-01-22] MEDS ORDERED: oxyCODONE/Acetamin 5/325 MG* TAB PO PRN (14:10)
[2018-01-22] MEDS ORDERED: Acetaminophen TAB* 325 MG PO PRN (14:11)
[2018-01-22] MEDS ORDERED: Ondansetron INJ* 2 MG/ML VIAL IV PRN (14:11)
[2018-01-22] MEDS ORDERED: Dextrose 50% Syringe 50 ML* 25 GM/50 ML SYRINGE IV PUSH PRN (14:17)
[2018-01-22] MEDS ORDERED: Vancomycin per Pharmacy* NOTE FOLLOW UP SCH (15:00)
--- NOTE | 2018-01-22 15:40 | HP ---
CC: Dr. Benitez; human resources intern, Dr. Ortez in [place] * HOSPITAL MEDICINE HISTORY AND PHYSICAL: DATE OF ADMISSION: 01/22/18 PRIMARY CARE PHYSICIAN: Dr. Benitez. CLUTCH MECHANIC: Dr. Ortez in [place]. ATTENDING PHYSICIAN: Dr. Jeremias Edwards * (dictation provided by Marce Jordan NP). CHIEF COMPLAINT: Fever, chest tightness, malaise. HISTORY OF PRESENT ILLNESS: Mr. Slaughter is a 48-year-old male with a past medical history of TIA x2 and CVA this year with history of diabetes and low antithrombin III levels as well as migraines and chronic back pain, who presents to the hospital today with a concern for fever, malaise, chest discomfort. Mr. Slaughter reports that yesterday he went to the [facility] where he had his PFO repaired by Dr. Otrez, a procedure which involved transesophageal echocardiogram and cardiac catheterization. The patient states that at the end of that procedure, he was doing well and felt fine. He was discharged to home. He states he slept well through the night until about 3 a.m. when he suddenly awoke with shaking and chills. He had an elevated fever, which stephanie to 102 degrees Farenheit by about 5 a.m. He called his who ultimately brought him to the emergency room. While on the way here, he developed chest tightness and was dizzy and lightheaded. He was also nauseous, but did not vomit. In the emergency room, Mr. Slaughter was febrile with a temp as high as 102.3. He was tachycardic with a heart rate running into the one teens. His blood pressures run as low as 92/61, but is now 113/67. He has no leukocytosis. His CRP is only 9.28. His troponin is 0.05. The patient has had blood cultures drawn. He has had IV fluid administration per sepsis protocol and has received vancomycin and cefepime. PAST MEDICAL HISTORY: 1. History of CVA x1 and TIA x2 with symptoms of diplopia and left upper extremity numbness, now resolved. 2. Ioa-xwyspyj-sbggeukma diabetes. 3. Low antithrombin III levels. 4. History of chronic back pain with history of a hemilaminectomy in 2009, laminectomy in 2012, and diskectomy in July 2016. MEDICATIONS: 1. Oxycodone with acetaminophen 5/325 one tab p.o. q.4 hours p.r.n. 2. Metformin 1000 mg p.o. b.i.d. 3. Methocarbamol 500 mg p.o. t.i.d. p.r.n. 4. Hydrochlorothiazide 25 mg p.o. q.a.m. 5. Diazepam 5 mg p.o. t.i.d. p.r.n. 6. Clopidogrel 75 mg p.o. daily. 7. Atorvastatin 20 mg p.o. q.p.m. 8. Aspirin 81 mg p.o. daily. ALLERGIES: To PENICILLINS. FAMILY HISTORY: The patient reports his mother related to chronic alcoholism and smoking, but the cause of was ultimately the flu. Dad is still alive. He has had 2 heart attacks and has had stent placement. SOCIAL HISTORY: No report of alcohol, tobacco, or drug use. The patient states his will be the healthcare proxy. REVIEW OF SYSTEMS: A 14-point review of systems was completed with Mr. Slaughter and all those not mentioned above were negative. PHYSICAL EXAMINATION GENERAL: Mr. Slaughter is lying in the bed with his at the bedside. He is in no acute distress. VITAL SIGNS: Temperature 101.1, pulse rate 111, respiratory rate 20, O2 saturation 95% on room air, blood pressure 113/67. LUNGS: Clear to auscultation bilaterally. No accessory muscle use and good aeration. HEART: S1, S2. No murmur, rub, or gallop and regular. ABDOMEN: Soft, nontender with bowel sounds positive x4. EXTREMITIES: No cyanosis or edema. NEURO: He is alert. He is oriented x3. He moves all extremities equally. There is no facial asymmetry or focal weakness. Extraocular movements are intact. SKIN: Intact. There is no evidence of erythema or redness at the site of IVs placed yesterday. He has a right groin site that has very minimal ecchymoses. No erythema. No drainage. No swelling. DIAGNOSTIC STUDIES/LAB DATA: Sodium 138, potassium 3.6, chloride 100, serum bicarbonate 27, BUN 15, creatinine 1.00, glucose 188. Troponin 0.05. CRP 9.28. WBC 10.0, hemoglobin 16.3, hematocrit 46, platelet count 153. INR 1.07. Urine shows no evidence of infection. Chest x-ray shows no acute intrathoracic process. EKG shows sinus tachycardia with a heart rate of 113 and no evidence of ischemia. ASSESSMENT AND PLAN: Mr. Slaughter is a 48-year-old male with past medical history of cerebrovascular accident and transient ischemic attack x2 this year with history of diabetes, low antithrombin III level and patent foramen ovale, who had patent foramen ovale repair done yesterday in [place] with Dr. Ortez and now presents to the hospital with a sudden onset of shaking chills, fever, malaise, and chest tightness. Our plans are for observation in the hospital for the followin. Fever. My primary concern is that the fever is related to his procedure yesterday. He has no evidence of erythema or drainage from the right groin site. He has no evidence of erythema related to any IV placed yesterday. He has no focal complaint. He has no evidence of pneumonia or urinary tract infection. Blood cultures have been sent. His lactic acid is normal. IV fluids have been administered appropriately. We will continue with IV fluids based on clinical course. The case has been reviewed by Dr. Burger with Dr. Ortez in [place] and he felt that it is unlikely this is related to procedure given how quickly and suddenly the onset of symptoms were. I question whether or not possibly this could be a drug reaction. In either case, for the time being, he will be continued on broad-spectrum antibiotics with vancomycin and cefepime, and we will consult with Dr. Henriquez if he is available tomorrow. The patient shows evidence of sepsis, but no signs of severe sepsis or septic shock. 2. Type 2 diabetes. Plan to hold metformin and continue blood glucoses q.a.c. 3. Elevated troponin. The patient's troponin is 0.05. His EKG shows no evidence of ischemia. We will continue with troponins q.3 hours x2 with further workup and treatment as indicated. He will continue on his home aspirin and statin. 4. Chronic back pain. Continue Percocet p.r.n. and Robaxin p.r.n. 5. Hypertension. Hold hydrochlorothiazide in the setting of an acute illness. 6. Anxiety. Continue diazepam p.r.n. 7. History of cerebrovascular accident and transient ischemic attack. Continue Plavix, atorvastatin, and aspirin. 8. Code status is full code. TIME SPENT: Approximately 60 minutes were spent on the admission of this patient, more than half time was spent with the patient at the bedside reviewing the events leading up to this hospitalization, performing the physical examination, and reviewing my plan of care. MARCE JORDAN NP [id number]/[facility] #: [id number] SAMMY
[2018-01-22] MEDS ORDERED: Vancomycin 2000 MG X 1 dose, then per Pharmacy PROTOCOL IVPB ONE ×2 (15:45)
[2018-01-22] MEDS: NS 0.9% 1000 ML* 1,000 ML IV SCH (16:00)
[2018-01-22] MEDS: Insulin LISPRO* 1 UNITS UNIT SUBCUT SCH (17:02)
[2018-01-22] MEDS: Atorvastatin* 20 MG TAB PO SCH (17:02)
[2018-01-22] MEDS ORDERED: hydrALAZINE IV* 20 MG/ML VIAL IV SLOW PU PRN (19:57)
--- NOTE | 2018-01-22 20:00 | PN ---
Progress Note - Progress Note Date of Service: 01/22/18 Note: Patient re-evaluated this evening. He reports feeling better with less malaise. HR and BP improved. His fever is down. He reports chest discomfort only with deep breathing. He denies other complaint. Second troponin down to 0.04 from 0.05. Echocardiogram ordered and pending. Blood cultures received and pending.
--- NOTE | 2018-01-22 20:31 | ECHO ---
Patient: DORCAS MAO [facility] Rec#: [id number] : 1970 Date: 01/22/2018 Age: 48y Height: 180 cm / 70.9 in Weight: 126 kg / 277.7 lbs Sex: M BSA: 2.42 Room#: 432 Admit Date#: 01/22/2018 Type: Inpatient Referring: Marce Jordan NP Reading: Ray Rosas MD Service Attendant: Elizabeth Mohan,BECCACS,RDMS CC: Rajendra Benitez Transthoracic Echocardiogram Indication: CP BP: 137/74 HR: 104 Rhythm: Tachycardia Findings History: S/P PFO repair. TIA, CVA, DM, PFO Technical Comments: The study quality is good. Left Ventricle: The left ventricular chamber size is normal. Mild concentric left ventricular hypertrophy is observed. Global left ventricular wall motion and contractility are within normal limits. There is normal left ventricular systolic function. The estimated ejection fraction is 55-60%. There is no consistent Doppler evidence of clinically significant diastolic dysfunction. Left Atrium: The left atrial chamber size is normal. Right Ventricle: The right ventricular chamber size and systolic function are within normal limits. Right Atrium: The right atrium is mildly dilated. A patent foramen ovale is not demonstrated by color Doppler. Patent foramen ovale patch appears to be appropriately placed in aneurysmal intra-atrial septum. Aortic Valve: The aortic valve is trileaflet. There is no evidence of aortic valve thickening. Systolic excursion of the aortic valve is normal. There is no evidence of aortic regurgitation. There is no evidence of aortic stenosis. Mitral Valve: The mitral valve leaflets appear normal. There is no evidence of mitral regurgitation. Tricuspid Valve: The tricuspid valve leaflets are normal. There is trace tricuspid regurgitation. Unable to estimate the right ventricular systolic pressure. Pulmonic Valve: There is no evidence of pulmonic valve thickening. There is no evidence of pulmonic regurgitation. There is no pulmonic stenosis. Pericardium: There is no significant pericardial effusion. Aorta: There is no dilatation of the ascending aorta. There is no dilatation of the aortic arch. There is mild dilatation of the aortic root. Pulmonary Artery: The main pulmonary artery is not well visualized. Venous: The inferior vena cava appears normal in size. There is an approximate 50% respiratory change in the inferior vena cava dimension. Conclusions There is normal left ventricular systolic function. The estimated ejection fraction is 55-60%. Global left ventricular wall motion and contractility are within normal limits. The left ventricular chamber size is normal. Mild concentric left ventricular hypertrophy is observed. The right atrium is mildly dilated. A patent foramen ovale is not demonstrated by color Doppler. The patent foramen ovale patch appears to be appropriately placed in the intra-atrial septum. Functionally benign heart valves. There is mild dilatation of the aortic root. Since the prior transthoracic echocardiogram completed 07/27/17 and transesophageal echocardiogram completed 09/03/17, pertinent change is prior patent foramen ovale intra-cardiac shunting is no longer noted (patient is status post successful patent foramen ovale closure yesterday). Measurements Name Value Normal Range RVIDd (AP) 2D 3.4 cm (0.9 - 2.6) RVDdMajor (2D) 3.2 cm (2.2 - 4.4) RAd ISD 4CH 4.8 cm (3.4 - 4.9) RA (A4C)W 4.9 cm (2.9 - 4.6) IVSd (2D) 1.1 cm (0.6 - 1) LVPWd (2D) 1.3 cm (0.6 - 1) LVIDd (2D) 4.5 cm (3.6 - 5.4) LVIDs (2D) 2.9 cm - LV FS (2D) 35 % (25 - 45) Aortic Annulus 2.4 cm (1.4 - 2.6) Ao root diameter (2D) 3.6 cm (2.1 - 3.5) Ascending Ao 3.4 cm (2.1 - 3.4) Aortic arch 2.6 cm (1.8 - 3.4) LA dimension (AP) 2D 4.2 cm (2.3 - 3.8) LAd ISD 4CH 4.9 cm (2.9 - 5.3) LA ISD 4CH W 4 cm (2.5 - 4.5) Name Value Normal Range LA ESV BP (A/L) index 25 ml/m2 - Name Value Normal Range MV E-wave Vmax 0.7 m/sec - MV deceleration time 124 msec - MV A-wave Vmax 0.7 m/sec - MV E:A ratio 1 ratio - LV septal e' Vmax 0.1 m/sec - LV lateral e' Vmax 0.14 m/sec - LV E:e' septal ratio 7 ratio - LV E:e' lateral ratio 5 ratio - Name Value Normal Range AV Vmax 1.4 m/sec - AV VTI 22 cm - AV peak gradient 8 mmHg - AV mean gradient 5 mmHg - LVOT Vmax 0.9 m/sec - LVOT VTI 16 cm - LVOT peak gradient 3.2 mmHg - LVOT mean gradient 2 mmHg - TREVER Vmax 0.9 m/sec - Name Value Normal Range RAP 8 mmHg - IVC diameter 2 cm - Name Value Normal Range PV Vmax 0.8 m/sec - PV peak gradient 2.6 mmHg -
[2018-01-22] MEDS: Heparin VIAL(*) 5000 UNITS/ML VIAL (FIVE THOUSAND) SUBCUT SCH (21:02)
[2018-01-23] MEDS: Vancomycin(*) 1,250 MG in NS 0.9% 250 ML* 250 ML IVPB SCH ×3 (00:33→16:30)
[2018-01-23] MEDS: NS 0.9% 1000 ML* 1,000 ML IV SCH ×2 (03:17→17:22)
[2018-01-23] MEDS: Heparin VIAL(*) 5000 UNITS/ML VIAL (FIVE THOUSAND) SUBCUT SCH ×3 (05:50→22:19)
[2018-01-23 06:34] LABS: ABS Basophils 0 10^3/ul (0-0.2); ABS Eosinophils 0.3 10^3/ul (0-0.6); ABS Lymphocytes 0.6 10^3/ul (1.0-4.8); ABS Monocytes 0.7 10^3/ul (0-0.8); ABS Neutrophils 4.8 10^3/ul (1.5-7.7); ABS Nucleated RBC 0 10^3/ul; Eosinophil % 4.9 % (0-6); Hematocrit 42 % (42-52); Hemoglobin 14.7 g/dl (14.0-18.0); Lymphocyte % 8.9 % (25-47); Mean Corpuscular HGB Conc 35 g/dl (31-36); Mean Corpuscular Hemoglobin 31 pg (27-31); Mean Corpuscular Volume 89 fL (80-94); Mean Platelet Volume 8.8 um3 (7.4-10.4); Nucleated Red Blood Cells % 0.1; Platelet Count 125 10^3/ul (150-450); Red Blood Count 4.69 10^6/ul (4.00-5.40); Red Cell Distribution Width 13 % (10.5-15); White Blood Count 6.4 10^3/ul (3.5-10.8)
[2018-01-23 07:00] LABS: EGFR Non-African American 113.9 (>60)
[2018-01-23] MEDS: Insulin LISPRO* 1 UNITS UNIT SUBCUT SCH ×3 (08:23→16:57)
[2018-01-23] MEDS: Aspirin 81 mg CHEW TAB* 81 MG TAB.CHEW PO SCH (08:23)
[2018-01-23] MEDS: Clopidogrel TAB* 75 MG PO SCH (08:23)
[2018-01-23] MEDS: Cefepime 1 GM in Dextrose(*) 1 GM/50 ML BAG IV SCH ×2 (11:56)
--- NOTE | 2018-01-23 14:55 | CONS ---
CONSULTATION REPORT: DATE OF CONSULT: 01/23/18 REQUESTING PHYSICIAN: Dr. Oneal. CONSULTING SERVICE: Infectious Disease. REASON FOR CONSULTATION: Fever. IMPRESSION: 1. Sudden onset of fever and rigors early in the morning of 01/22/18, 8 to 12 hours after PFO closure. Because of his symptoms of nausea, malaise, and diarrhea, he came to the hospital yesterday morning. He had a white count of 10 ,000. He is febrile to 39 degrees. He is tachycardic into the 130s and is normotensive. He was started on vancomycin and cefepime. Chest x-ray, PA, film was unremarkable, but cultures were taken, 1 of 4 bottles grown Gram- positive cocci and clusters. Staph aureus is negative. This is going to be coagulase-negative Staphylococcus. His workup has otherwise been negative. Differential considerations include food poisoning given the GI symptoms and fever and sudden onset and sudden offset of symptoms. Allergic reaction to something during the procedure, less likely an infection. At this time of year , tick-borne infections are consideration, though lack of ongoing fever without any specific treatment of them argues against it. 2. Obesity. 3. Patent foramen ovale closure, 01/21/18. 4. Stroke and transient ischemic attack twice. 5. Pwr-uqbukwa-lhcsnmioq diabetes. RECOMMENDATIONS: 1. Stop cefepime. 2. Continue vancomycin while waiting of the defecation of the Gram-positive cocci. HISTORY OF PRESENT ILLNESS: This is a 48-year-old man who had a PFO closure on 01/21/18, tolerated it well. Later that same night, he had the onset of fever and rigors that awoke him with nausea, some diarrhea, had eaten tuna fish that afternoon before going to bed. He had some vague abdominal discomfort at that time as well. Blood cultures were taken. He was started on vancomycin and cefepime. Cultures have come back 1 of 4 Gram-positive cocci and clusters. PCR negative for Staph aureus. He has had no fevers today. His energy and appetite are improving. His right groin catheterization site is benign and not painful. He has not noticed any bleeding, drainage, or redness there. He has no cough or trouble with breathing. His chest x-ray on admission was unremarkable. His white blood cell count is 4 today, platelets are 125. He has had no shaking chills or sweats today. Urinalysis is negative, except for glucose and ketones. PAST MEDICAL HISTORY: 1. Stroke and TIA with a PFO, which was closed 2 days ago. 2. Agu-nkhtyqr-wfmjbculj diabetes. 3. Low back pain with spinal stimulator, hemilaminectomy, laminectomy, and diskectomy in 2017. Pacemaker site is benign and not painful. 4. Obesity. MEDICATIONS: 1. Tylenol. 2. Cefepime 1 mg every 12 hours. 3. Diazepam as needed. 4. Heparin subcutaneous injection. 5. Methocarbamol. 6. Zofran. 7. Vancomycin 1250 mg IV every 8 hours. ALLERGIES: PENICILLIN, unknown reaction. FAMILY HISTORY: No recurrent infections. SOCIAL HISTORY: He lives in [place] with his and children, all of whom are healthy. No travel other than to [place]. No other sick contacts. REVIEW OF SYSTEMS: All negative, except as noted above, to 12-point review of systems. PHYSICAL EXAM: Vital Signs: Temperature 37, heart rate 90, respiratory rate 20 , blood pressure 140/89, oxygen saturation 97% on room air. In general, he is awake, not in distress. Neurologic: He is oriented x3. Follows all commands. HEENT: There is no thrush or conjunctival hemorrhage. Oropharynx: Without lesions. Neck: Supple without mass. Heart is regular rate and rhythm without murmurs, rubs, or gallops. Lungs are clear to auscultation bilaterally. Abdomen: Soft, nontender, nondistended. There are bowel sounds present. Skin : There are no rashes or splinter hemorrhages. Right groin catheterization site, there is no erythema, fluctuance, warmth, drainage, or tenderness. Musculoskeletal: There is no spine tenderness to palpation. Spinal stimulator sites are well healed and nontender. LABORATORY DATA: White blood cell count 6, hemoglobin 14, platelets 125. Creatinine 0.7. Troponin 0.04. CRP was 9. Please see impressions and recommendations as outlined above that I discussed with Dr. Oneal. Thanks for asking me to see Mr. Slaughter in consultation. [id number]/[facility] #: [id number] MTDD
--- NOTE | 2018-01-23 15:54 | PN ---
Subjective Date of Service: 01/23/18 Interval History: Feels like his breath "catches" with deep inspiration Otherwise, no complaints Objective Active Medications: Acetaminophen (Tylenol Tab*) 650 mg PO Q6H PRN PRN Reason: pain/fever Aspirin (Aspirin 81 Mg Chew Tab*) 81 mg PO DAILY [facility] Last Admin: 01/23/18 08:23 Dose: 81 mg Atorvastatin Calcium (Lipitor*) 20 mg PO QPM [facility] Last Admin: 01/22/18 17:02 Dose: 20 mg Clopidogrel Bisulfate (Plavix Tab*) 75 mg PO DAILY [facility] Last Admin: 01/23/18 08:23 Dose: 75 mg Dextrose (D50w Syringe 50 Ml*) 12.5 gm IV PUSH .FOR FS < 60 - SS PRN PRN Reason: FS < 60 Diazepam (Valium Tab(*)) 5 mg PO TID PRN PRN Reason: SPASMS Heparin Sodium (Porcine) (Heparin Vial(*)) 5,000 units SUBCUT Q8HR [facility] Last Admin: 01/23/18 13:10 Dose: 5,000 units Hydralazine HCl (Apresoline Iv*) 5 mg IV SLOW PU Q6H PRN PRN Reason: SBP > 180 Sodium Chloride (Ns 0.9% 1000 Ml*) 1,000 mls @ 125 mls/hr IV PER RATE [facility] Last Admin: 01/23/18 03:17 Dose: 125 mls/hr Vancomycin HCl 1,250 mg/ (Sodium Chloride) 250 mls @ 166.667 mls/hr IVPB Q8H [facility] Last Admin: 01/23/18 08:23 Dose: 166.667 mls/hr Insulin Human Lispro (Humalog*) [address] [facility]; Protocol Last Admin: 01/23/18 11:57 Dose: 2 units Methocarbamol (Robaxin Tab*) 500 mg PO TID PRN PRN Reason: SPASMS Ondansetron HCl (Zofran Inj*) 4 mg IV Q6H PRN PRN Reason: NAUSEA Oxycodone/Acetaminophen (Percocet 5/325 Tab*) 1 tab PO Q4H PRN PRN Reason: PAIN Pharmacy Consult (Vancomycin Per Pharmacy*) 1 note FOLLOW UP .VANC PER PHARMACY [facility] Pharmacy Profile Note (Vancomycin Trough Check) 1 note FOLLOW UP 1600 ONE Stop: 01/23/18 16:01 Vital Signs - 8 hr 01/23/18 01/23/18 11:03 15:27 Temperature 98.7 F 98.5 F Pulse Rate 94 99 Respiratory 20 16 Rate Blood Pressure 140/89 137/84 (mmHg) O2 Sat by Pulse 97 97 Oximetry Oxygen Devices in Use Now: None Appearance: NAD Eyes: No Scleral Icterus, PERRLA Ears/Nose/Mouth/Throat: NL Teeth, Lips, Gums, Clear Oropharnyx Neck: NL Appearance and Movements; NL JVP, Trachea Midline Respiratory: Symmetrical Chest Expansion and Respiratory Effort, Clear to Auscultation Cardiovascular: NL Sounds; No Murmurs; No JVD, RRR Abdominal: NL Sounds; No Tenderness; No Distention, No Hepatosplenomegaly Lymphatic: No Cervical Adenopathy Extremities: No Edema Skin: No Rash or Ulcers, - - right groin access c/d/i Neurological: Alert and Oriented x 3 Result Diagrams: 01/23/18 05:35 01/23/18 05:35 Microbiology and Other Data: Microbiology 01/22/18 09:10 Aerobic Blood Culture - Preliminary Blood Venous No Growth Day 1 Anaerobic Blood Culture - Preliminary Blood MRSA/MSSA (PCR) - Final Mrsa Negative S.aureus Negative 01/22/18 09:10 Aerobic Blood Culture - Preliminary Blood Venous No Growth Day 1 Anaerobic Blood Culture - Preliminary No Growth Day 1 Assess/Plan/Problems-Billing Assessment: 48 yo M h/o NIDDM, CVA 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 Suspect contaminant. Continue with vanco and await speciation. Stop cefepime Repeat labs in AM No clear source TTE wnl groin without infection c/w IVF (2) Elevated troponin Comment: suspect after recent procedure stable (3) CVA (cerebral vascular accident) Comment: ASA, Plavix s/p PFO closure (4) HTN (hypertension) Comment: Normotensive Holding HCTZ. (5) DVT prophylaxis Comment: HSQ
[2018-01-23] MEDS ORDERED: Vancomycin Trough Check NOTE FOLLOW UP ONE (16:00)
[2018-01-23] MEDS: Atorvastatin* 20 MG TAB PO SCH (16:30)
[2018-01-23] MEDS: metFORMIN* 500 MG TAB PO SCH (19:51)
[2018-01-24] MEDS: Vancomycin(*) 1,250 MG in NS 0.9% 250 ML* 250 ML IVPB SCH ×2 (00:59→08:05)
[2018-01-24] MEDS: NS 0.9% 1000 ML* 1,000 ML IV SCH (05:25)
[2018-01-24] MEDS: Heparin VIAL(*) 5000 UNITS/ML VIAL (FIVE THOUSAND) SUBCUT SCH ×2 (05:28→13:31)
[2018-01-24] MEDS: metFORMIN* 500 MG TAB PO SCH (08:05)
[2018-01-24] MEDS: Aspirin 81 mg CHEW TAB* 81 MG TAB.CHEW PO SCH (08:05)
[2018-01-24] MEDS: Insulin LISPRO* 1 UNITS UNIT SUBCUT SCH ×2 (08:05→11:43)
[2018-01-24] MEDS: Clopidogrel TAB* 75 MG PO SCH (08:05)
[2018-01-24 12:08] VITALS: BP 152/96
--- NOTE | 2018-01-24 16:28 | DS ---
CC: Dr. Benitez; Dr. Ortez from [facility] * DISCHARGE SUMMARY: DATE OF ADMISSION: DATE OF DISCHARGE: PRIMARY CARE PROVIDER: Dr. Benitez. BISQUE KILN DRAWER: Dr. Ortez. PRIMARY DIAGNOSIS: Fever. SECONDARY DIAGNOSES: Include: 1. Recent patent foramen ovale repair with Dr. Ortez day prior to presentation. 2. History of cerebrovascular accidents. 3. Apj-vimetyg-mpgimtorr diabetes. 4. Low antithrombin III levels per report. 5. Chronic back pain with multiple surgeries. 6. Hypertension. 7. Migraines. MEDICATIONS ON DISCHARGE: Unchanged from admission and include: 1. Percocet 1 tab every 4 hours as needed. 2. Metformin 1000 mg twice daily. 3. Robaxin 500 mg 3 times a day as needed. 4. Hydrochlorothiazide 25 mg in the morning. 5. Diazepam 5 mg 3 times a day as needed. 6. Clopidogrel 75 mg daily. 7. Atorvastatin 20 mg in the evening. 8. Aspirin 81 mg daily. PERTINENT LABORATORY DATA: White blood cell count on presentation 10.9, 6.4 on discharge. D-dimer is 202. Troponin I 0.05 or less on 3 consecutive checks. Lactic acid 1.8 on presentation. CRP is 9.2. Urine negative, except for trace ketones and glucose. PERTINENT IMAGING STUDIES: 1. Transthoracic echocardiogram: Impression: Estimated LVEF is 55% to 60%, mild concentric left ventricular hypertrophy. Right atrium is mildly dilated. Patent foramen ovale is not demonstrated. The patch appears to be appropriately placed in the interatrial septum. Functionally benign heart valves. Mild dilatation in the aortic root. Since the echocardiogram completed in July and a transesophageal echocardiogram performed in August , the pertinent changes or prior patent foramen ovale with intracardiac shunting is no longer noted. 2. Chest x-ray: Impression: No active cardiopulmonary disease. HISTORY OF PRESENT ILLNESS AND HOSPITAL COURSE: This is a 48-year-old man with past medical history as outlined in the history of present illness on day of admission including several TIAs and a CVA this year, history of diabetes and low antithrombin III levels, migraines, who presented to the hospital with fever as high as 102.3 on the day of admission 1 day postop repair of interatrial shunt. The patient was started on cefepime and vancomycin, then tapered to vancomycin alone. He had no additional fevers after the day of admission. Blood cultures grew 1 bottle of Staph epidermidis, thought to represent a contaminant. His urine remained negative. The patient did indicate he had some discomfort with deep inspiration. D-dimer was checked and was negative on the day of discharge with value of 202. EKG did indicate an S1Q3T3 pattern, which has been consistent prior to his presentation and this hospital stay and is not new. While tachycardic on presentation, this improved with administration of fluids. He had no right heart strain, also decreasing our suspicion for pulmonary embolism. The patient's presentation was preceded by diarrhea. He was seen in consultation with our infectious disease service, who did place food poisoning and/or other GI illness on the possible differential. Allergic reaction also potential and thought there would be less likely an infection. He has been fever free for 48 hours at the time of his discharge. We discussed at length returning to the hospital if he has any fevers, chills, or diaphoresis to indicate recurrent fever. Recurrent fever would likely prompt a LOLA to further interrogate his PFO repair in the setting of a new fever. On the day of discharge, the patient felt well and was anticipating return home. At followup, please; 1. Please evaluate for continued resolution of fevers. 2. No other specific labs or vitals that need followup. Reasons to return to the hospital including, but not limited to, recurrent or worsening symptoms including fevers, chills, night sweats, chest pain, shortness of breath, nausea, vomiting, lightheadedness or loss of consciousness , inability to obtain or tolerate medications were discussed with the patient and his . They acknowledged understanding. TIME SPENT: Greater than 60 minutes were spent on the discharge of the patient , greater than half was spent [id number] with the patient. [id number]/[facility] #: [id number] SAMMY
== END 2018-01-24 15:30 | disposition home or self-care (01) ==
LOC: ED 08:41 → MEDTELE 14:07
PROVIDERS: ADMIT Internal Medicine; ATTEND Internal Medicine
DX: R50.9 Fever, unspecified (principal); G43.909 Migraine, unspecified, not intractable, without status migrainosus; R00.2 Palpitations; Z79.82 Long term (current) use of aspirin; M54.9 Dorsalgia, unspecified; R07.9 Chest pain, unspecified; I10 Essential (primary) hypertension; R06.02 Shortness of breath; E11.9 Type 2 diabetes mellitus without complications; R11.0 Nausea; R53.1 Weakness; A41.9 Sepsis, unspecified organism; Z86.73 Personal history of transient ischemic attack (TIA), and cerebral infarction without residual deficits; G89.29 Other chronic pain
CPT/HCPCS: 36415; 71045; 80048; 80053; 80202; 81003; 83605; 83880; 84484; 85025; 85379; 85610; 85730; 86140; 87040; 87077; 87150; 87205; 93005; 93306; 96365; 96366; 99285; A9270-GY; G0378; J0692; J1644; J2405; J3370

== ENCOUNTER 2018-03-07 13:26 | Emergency (ER) | payer BC ==
--- NOTE | 2018-03-07 15:20 | ED ---
HPI Cardiac - HPI Summary HPI Summary: This patient is a 48 year old male with a hx of PFO closure last month presenting [place] [facility] accompanied by with a chief complaint of palpitations since waking up at approx. 0600 this morning. Patient called his energy project manager and met with Dr. Rivas, who referred him to an Ed. Patient states that his palpitations feels like a big thump and between the thumps, he feels like his heartbeat comes delayed. The chest pain is rated 0/10 in severity. Symptoms aggravated by nothing. Symptoms alleviated by nothing. Patient additionally reports a mild pressure-like headache. Patient denies ear pain, abd pain, diarrhea - History of Current Complaint Chief Complaint: EDDysrhythmPalp Stated Complaint: IRREGULAR HEARTBEAT Time Seen by Provider: 03/07/18 15:11 Hx Obtained From: Patient Onset/Duration: Started Hours Ago Time of Onset: 06:00 Timing: Constant Current Severity: Mild Pain Intensity: 0 Pain Scale Used: 0-10 Numeric Character: Pounding, Skipped Beats Aggravating Factor(s): Nothing Alleviating Factor(s): Nothing Associated Signs and Symptoms: Positive: Negative - ear pain, abd pain, diarrhea , Other: - mild pressure-like headache - Additional Pertinent History Primary Care Physician: [id number] - Allergy/Home Medications Allergies/Adverse Reactions: Allergies Allergy/AdvReac Type Severity Reaction Status Date / Time Penicillins Allergy Unknown Verified 03/07/18 14:45 Reaction Details PMH/Surg Hx/FS Hx/Imm Hx Previously Healthy: No Endocrine/Hematology History: Reports: Hx Diabetes Denies: Hx Thyroid Disease Cardiovascular History: Reports: Hx Hypercholesterolemia, Hx Hypertension Denies: Hx Angina, Hx Coronary Artery Disease, Hx Deep Vein Thrombosis, Hx Myocardial Infarction, Hx Pacemaker/ICD, Hx Valvular Heart Disease Comment Only: Other Cardiovascular Problems/Disorders - PFO repair. Respiratory History: Reports: Hx Asthma, Hx Seasonal Allergies Denies: Hx Chronic Obstructive Pulmonary Disease (COPD) GI History: Denies: Hx Ulcer History: Denies: Hx Dialysis, Hx Renal Disease Musculoskeletal History: Reports: Hx Arthritis - LOW BACK, Hx Back Problems Sensory History: Reports: Hx Contacts or Glasses Denies: Hx Deafness, Hx Hearing Aid Opthamlomology History: Reports: Hx Contacts or Glasses Neurological History: Reports: Hx CVA - 10/2017, Hx Nerve Disease - left leg numb /tingling d/t back inj, Hx Transient Ischemic Attacks (TIA) - Jul 2017 Denies: Hx Seizures, Hx Spinal Cord Injury, Other Neuro Impairments/Disorders Psychiatric History: Reports: Hx Anxiety Denies: Hx Panic Disorder - Surgical History Surgery Procedure, Year, and Place: 05/2010 DOUBLE SYDNEE - LAMINECTOMY DR. NELSON. 07/[address] NELSON. 07/[address] [place]. 2016 SPINAL STIMULATOR PLACEMENT - AND REMOVAL - LEAD REMOVAL VERIFIED VIA CLEARANCE XRAYS PER DR. CHAN 05.25.2017. JUN 2017- PERMANENT STIMULATOR PLACEMENT Hx Anesthesia Reactions: No - Immunization History Date of Tetanus Vaccine: up to date per pt Infectious Disease History: No Infectious Disease History: Denies: Hx Clostridium Difficile, Hx Hepatitis, Hx Human Immunodeficiency Virus (HIV), Hx of Known/Suspected MRSA, Hx Shingles, Hx Tuberculosis, Hx Known/ Suspected VRE, Hx Known/Suspected VRSA, History Other Infectious Disease, Traveled Outside the [place] in Last 30 Days - Family History Known Family History: Positive: Cardiac Disease, Other - cancer - Social History Lives: With Family Alcohol Use: Rare Alcohol Amount: 1 beer per month Hx Substance Use: No Substance Use Type: Reports: None Hx Tobacco Use: No Smoking Status (MU): Never Smoked Tobacco Have You Smoked in the Last Year: No Review of Systems Negative: Fever Negative: Ear Ache Positive: Palpitations. Negative: Chest Pain Negative: Abdominal Pain, Diarrhea Positive: Headache All Other Systems Reviewed And Are Negative: Yes NIH Scale - NIH Scale Level of Consciousness: Alert/Keenly Responsive Ask Patient the Month and His/Her Age: Both Correct Ask Pt to Open/Close Eyes and Copy Writer/Release Non-Paretic Hand: Both Correctly Best Gaze (Only Horizontal Eye Movement): Normal Visual Field Testing: No Visual Loss Facial Paresis-Pt to Smile & Close Eyes or Grimace Symmetry: Normal/Symmetrical Motor Function - Right Arm: No Drift-Holds 10 Seconds Motor Function - Left Arm: No Drift-Holds 10 Seconds Motor Function - Right Leg: No Drift-Holds 10 Seconds Motor Function - Left Leg: No Drift-Holds 10 Seconds Limb Ataxia-Must be out of Proportion to Weakness Present: Absent Sensory (Use Pinprick to Test Arms/Legs/Trunk/Face): Normal Best Language (Describe Picture, Name Items): No Aphasia Dysarthria (Read Several Words): Normal Extinction and Inattention: No Abnormality Total Score: 0 Physical Exam - Summary Physical Exam Summary: General: well-appearing, no pain distress Skin: warm, color reflects adequate perfusion, dry Head: normal Eyes: EOMI, JALEEL ENT: normal Neck: supple, nontender Respiratory: CTA, breath sounds present Cardiovascular: RRR Abdomen: soft, nontender Bowel: present Musculoskeletal: normal, strength/ROM intact Neurological: sensory/motor intact, A&O x3 Psychological: affect/mood appropriate Triage Information Reviewed: Yes Vital Signs On Initial Exam: Initial Vitals Temp Pulse Resp BP Pulse Ox 98.0 F 75 14 122/85 97 03/07/18 13:55 03/07/18 13:55 03/07/18 13:55 03/07/18 13:55 03/07/18 13:55 Vital Signs Reviewed: Yes Diagnostics - Vital Signs Vital Signs Temp Pulse Resp BP Pulse Ox 03/07/18 13:55 98.0 F 75 14 122/85 97 - Laboratory Result Diagrams: 03/07/18 15:44 03/07/18 15:44 Lab Statement: Any lab studies that have been ordered have been reviewed, and results considered in the medical decision making process. - Radiology CXR Xray Interpretation: No Acute Changes - CXR reveals, per radiologist, IMPRESSION : No evidence for acute intrathoracic disease. ED physician has reviewed this radiology report. Radiology Interpretation Completed By: Radiologist - CT CT Brain CT Interpretation: No Acute Changes - CT Brain reveals, per radiologist, IMPRESSION: Negative unenhanced head CT. ED physician has reviewed this radiology report. CT Interpretation Completed By: Radiologist Disposition - Course Course Of Treatment: This patient is a 48 year old male with a hx of PFO closure last month presenting to [facility] accompanied by with a chief complaint of palpitations since waking up at approx. [address] and [address] Brain ordered and reviewed. Bloodwork Obtained. Urinalysis Obtained. Medications reviewed. Allergies noted. Test results with no significant abnormalities. In the ED course the patient was given NS 0.9% bolus IV, Magnesium oxide tablet 400mg PO. DISCUSSED WITH CARDIOLOGY, DR RIVAS. NO PALPITATIONS IN ED. F/U WITH CARDIOLOGY, DR CORDERO; RETURN TO ED IF WORSE. - Diagnoses Provider Diagnoses: Palpitations, Headache Discharge - Sign-Out/Discharge Documenting (check all that apply): Patient Departure - Discharge Plan Condition: Stable Disposition: HOME Patient Education Materials: Heart Palpitations (ED), Acute Headache (ED) Referrals: Rajendra Benitez MD [Primary Care Provider] - Shauna Cordero MD [Medical Doctor] - Additional Instructions: FOLLOW UP WITH YOUR CIRCULAR KNITTER HELPER. CALL DR CORDERO'S OFFICE 03/09/18, TO SCHEDULE AN APPOINTMENT AND A CARDIAC EVENT MONITOR. RETURN TO THE EMERGENCY DEPARTMENT FOR ANY WORSENING OF YOUR CONDITION; CHEST PAIN, SHORTNESS OF BREATH, RACING HEART, YOU FEEL LIKE YOU ARE GOING TO PASS OUT , HEADACHE, WEAKNESS, NUMBNESS, DIFFICULTY WITH SPEECH OR VISION OR QUESTIONS OR CONCERNS. - Billing Disposition and Condition Condition: STABLE Disposition: Home - Attestation Statements Document Initiated by Obdulio: Yes Documenting Scribe: Christian Bruno Provider For Whom Obdulio is Documenting (Include Credential): Howie Troy MD Scribe Attestation: IChristian scribed for Howie Troy MD on 03/07/18 at 2133. Scribe Documentation Reviewed: Yes Provider Attestation: The documentation as recorded by the Christian davis accurately reflects the service I personally performed and the decisions made by me, Howie Troy MD
[2018-03-07] MEDS ORDERED: NS 0.9% 1000 ML* 1,000 ML IV ONE (15:24)
--- OUTSIDE RECORDS SUMMARY | 2018-03-07 15:28 | XMS REPORT ---
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 Active Onset: 10/12/2013 Sciatica Shawn Lugo M.D. Active Onset: 07/31/2016 Convalescence after surgery Mo Lyons M.D. Active Onset: 10/21/2016 Low back pain Mo Lyons M.D. Active Onset: 08/25/2017 Transient cerebral ischemia Charly Goodson M.D. Active Onset: 08/25/2017 Hemorrhage Charly Goodson M.D. Active Family History Date Family Member(s) Problem(s) Comments Father [place] x2 Father Hypertension Mother due to Pneumonia () Mother Alcoholism Mother Heavy smoker Onset: (11/24/2017) Siblings 8 Siblings 8 1 - (auto imuune disorder) Social History Type Date Description Comments Marital Status Lives With Lives With Children x4 Occupation Disabled Cigarette Use Never Smoked Cigarettes ETOH Use Drinks Alcoholic Beverages Rarely Smoking Patient has never smoked Recreational Drug Use Denies Drug Use Daily Caffeine Consumes on average 1 cup of regular coffee per day Exercise Type/Frequency Exercises regularly Exercise Type/Frequency Exercises regularly walks Allergies, Adverse Reactions, Alerts Date Description Reaction Status Severity Comments 10/12/2013 Penicillins active Medications Medication Date Status Form Strength Qnty SIG Indications Ordering Provider Oxycodone HCL 10/12 Active Capsules 5mg 14cap take 1-2 s tabs by Serena mouth every M.D. 4 hours as needed Diazepam 07/31 Active Tablets 5mg 45tab 1 PO Q6h s prn spasm Nancy Lyons Methocarbamol Active Tablets 500mg 1 by mouth Unknown every 4 hours as needed Hydrochlorothiazid Active Tablets 25mg 1 tab a day [place] e , Rajendra Johnson MD Atorvastatin Active Tablets 20mg 1 tab every [place] day , Rajendra Johnson MD Ibuprofen Active Tablets 800mg by mouth Unknown three times a day as needed Metformin HCL Active Tablets 1000mg take one tablet by mouth twice a day Aspirin Active Tablets 325mg take [address] mouth once a day Gabapentin 08/26 Hx Capsules 300mg 90cap 1 by mouth Z48.89 s three times Serena, - a day M.D. 08/24 Methylprednisolone 07/31 Hx TBPK 4mg 1pack take as Z48.89 directed Kami Lyons M.D. 08/26 Medrol 07/01 Hx Tablets 4mg 1pack take as M51.26 directed Kami Lyons M.D. 07/09 Methylprednisolone 06/19 Hx Tablets 8mg 15tab 1 tab by M51.27 Shawn Brewer /2014 s mouth twice Pollack, - a day for M.D. 07/01 seven days then stop. Diazepam 01/03 Hx Tablets 5mg 14tab 1 tab by Shawn Brewer /2014 s mouth three Pollack, - times a day M.D. 07/01 as needed spasm Oxycodone HCL 10/12 Hx Capsules 5mg 90cap 1-2 four M54.42 Shawn Brewer s times a day Parish, - as needed M.D. 08/24 Meloxicam 05/22 Hx Tablets 7.5mg 30tab one po qDay Shawn Brewer s as needed Parish, - for pain, M.D. 10/12 take with food. After three days if pain poorly controlled go to 2 po q day with food. Methylprednisolone 03/04 Hx Tablets 4mg 30tab two po bid Shawn Brewer s x 7 days Parish, - only M.D. 10/12 Oxycodone/Acetamin 03/04 Hx Tablets 10-325mg 60tab one half to Shawn penalozaen s two po qid Parish, - prn pain M.D. 08/11 Tramadol HCL 08/24 Hx Tablets 50mg 60tab 1-2 po qid Shawn Brewer s prn Parish, - M.D. 05/22 Cyclobenzaprine 08/24 Hx Tablets 10mg 90tab one by Shawn Brewer HCL s mouth three Parish, - times a day M.D. 08/24 as needed spasm Naproxen 08/24 Hx Tablets 375mg 60tab 1 po tid Shawn Brewer s prn pain. Parish, - take with M.D. 05/22 food. Oxycodone-Apap 05/14 Hx Tablets 10-325mg 60tab one to two Shawn Brewer s po qid prn Pairsh, - pain M.D. 03/04 Oxycodone/Acetamin Hx Tablets 5-325mg 90tab 1-2 po qid Shawn Brewer ophen / s prn pain Parish, - M.D. 10/04 Ibuprofen Hx Tablets 800mg by mouth Unknown three times - a day as 07/01 needed Vital Signs Date Vital Result Comment 02/18/2018 Height 71 inches 5'11" Weight 274.00 lb W/ Shoes Heart Rate 68 /min BP Systolic Sitting 130 mmHg Lue Large Cuff BP Diastolic Sitting 92 mmHg Lue Large Cuff BMI (Body Mass Index) 38.2 kg/m2 Ejection Fraction 55% Stress Test 12/18/17 01/01/2018 Height 71 inches 5'11" Weight 281.00 lb Heart Rate 76 /min BP Systolic Sitting 120 mmHg BP Diastolic Sitting 86 mmHg Respiratory Rate 14 /min O2 % BldC Oximetry 95 % BMI (Body Mass Index) 39.2 kg/m2 Neck Circumference in inches 19 11/24/2017 Height 71 inches 5'11" Weight 280.06 lb w/shoes Heart Rate 88 /min BP Systolic Sitting 126 mmHg L/A Reg Cuff BP Diastolic Sitting 88 mmHg L/A Reg Cuff BP Systolic Standing 126 mmHg L/A Reg Cuff BP Diastolic Standing 88 mmHg L/A Reg Cuff BMI (Body Mass Index) 39.1 kg/m2 Ejection Fraction 55-60% echo 07/27/2017 08/25/2017 Height 71 inches 5'11" Weight 285.38 lb Heart Rate 76 /min BP Systolic 118 mmHg BP Diastolic 80 mmHg BMI (Body Mass Index) 39.8 kg/m2 10/21/2016 Height 71 inches 5'11" Weight 285.00 lb Heart Rate 76 /min BP Systolic Sitting 130 mmHg BP Diastolic Sitting 92 mmHg Pain Level 3 BMI (Body Mass Index) 39.7 kg/m2 09/16/2016 Height 71 inches 5'11" Weight 285.00 lb Heart Rate 80 /min BP Systolic Sitting 158 mmHg BP Diastolic Sitting 82 mmHg Pain Level 3 BMI (Body Mass Index) 39.7 kg/m2 08/26/2016 Height 71 inches 5'11" Weight 285.00 lb Heart Rate 82 /min BP Systolic Sitting 130 mmHg BP Diastolic Sitting 80 mmHg Pain Level 7 BMI (Body Mass Index) 39.7 kg/m2 07/31/2016 Height 71 inches 5'11" Weight 285.00 lb Heart Rate 82 /min BP Systolic Sitting 148 mmHg BP Diastolic Sitting 90 mmHg Body Temperature 98.0 F Pain Level 10 BMI (Body Mass Index) 39.7 kg/m2 07/10/2016 Height 71 inches 5'11" Weight 285.00 lb Respiratory Rate 18 /min Pain Level 8 BMI (Body Mass Index) 39.7 kg/m2 07/01/2016 Height 71 inches 5'11" Weight 285.00 lb Heart Rate 82 /min BP Systolic Sitting 160 mmHg BP Diastolic Sitting 90 mmHg Pain Level 6 BMI (Body Mass Index) 39.7 kg/m2 06/19/2015 Height 71 inches 5'11" Weight 301.00 lb Heart Rate 82 /min BP Systolic Sitting 160 mmHg BP Diastolic Sitting 100 mmHg Pain Level 10 back BMI (Body Mass Index) 42.0 kg/m2 01/03/2015 Height 71 inches 5'11" Weight 301.00 lb Heart Rate 76 /min BP Systolic Sitting 166 mmHg BP Diastolic Sitting 100 mmHg Pain Level 7 back BMI (Body Mass Index) 42.0 kg/m2 10/04/2014 Height 71 inches 5'11" Weight 299.00 lb Heart Rate 82 /min BP Systolic Sitting 158 mmHg BP Diastolic Sitting 98 mmHg Pain Level 5 back/L eg BMI (Body Mass Index) 41.7 kg/m2 10/12/2013 Height 71 inches 5'11" Weight 280.00 lb Pain Level 6 left leg BMI (Body Mass Index) 39.0 kg/m2 Results Test Date Test Result H/L Range Note CBC No Diff 07/11/2016 White Blood Count 7.9 10^3/uL 3.5-10.8 1 Red Blood Count 5.36 10^6/uL 4.0-5.4 1 Hemoglobin 16.2 g/dL 14.0-18.0 1 Hematocrit 49 % 42-52 1 Mean Corpuscular Volume 91 fL 80-94 1 Mean Corpuscular Hemoglobin 30 pg 27-31 1 Mean Corpuscular HGB Conc 33 g/dL 31-36 1 Red Cell Distribution Width 13 % 10.5-15 1 Platelet Count 196 10^3/uL 150-450 1 Mean Platelet Volume 9 um3 7.4-10.4 1 Basic Metabolic Panel 07/11/2016 Sodium 135 mmol/L 133-145 1 Potassium 4.1 mmol/L 3.5-5.0 1 Chloride 98 mmol/L Low 101-111 1 Co2 Carbon Dioxide 33 mmol/L High 22-32 1 Anion Gap 4 mmol/L 2-11 1 Glucose 154 mg/dL High 70-100 1 Blood Urea Nitrogen 17 mg/dL 6-24 1 Creatinine 0.97 mg/dL 0.67-1.17 1 BUN/Creatinine Ratio 17.5 8-20 1 Calcium 9.2 mg/dL 8.6-10.3 1 Egfr Non- 84.1 >60 1 Egfr 108.1 >60 1, 2 CBC Auto Diff 07/15/2012 White Blood Count 4.5 10^3/uL Low 4.8-10.8 Red Blood Count 5.32 10^6/uL 4.0-5.4 Hemoglobin 16.6 g/dL 14.0-18.0 Hematocrit 49 % 42-52 Mean Corpuscular Volume 91 fL 80-94 Mean Corpuscular Hemoglobin 31 pg 27-31 Mean Corpuscular HGB Conc 34 g/dL 31-36 Red Cell Distribution Width 13 % 10.5-15 Platelet Count 158 10^3/uL 150-450 Mean Platelet Volume 9 um3 7.4-10.4 Abs Neutrophils 2.6 10^3/uL 1.5-7.7 Abs Lymphocytes 1.3 10^3/uL 1.0-4.8 Abs Monocytes 0.4 10^3/uL 0-0.8 Abs Eosinophils 0.2 10^3/uL 0-0.6 Abs Basophils 0.1 10^3/uL 0-0.2 Abs Nucleated RBC 0 10^3/uL Granulocyte % 56.4 % 38-83 Lymphocyte % 29.3 % 25-47 Monocyte % 8.3 % 1-9 Eosinophil % 4.6 % 0-6 Basophil % 1.4 % 0-2 Nucleated Red Blood Cells % 0 Basic Metabolic Panel 07/15/2012 Sodium 136 mmol/L 133-145 Potassium 4.1 mmol/L 3.5-5.0 Chloride 102 mmol/L 101-111 Co2 Carbon Dioxide 27.0 mmol/L 22-32 Anion Gap 7.0 mmol/L 2-11 Glucose 105 mg/dL High 70-100 Blood Urea Nitrogen 9 mg/dL 6-24 Creatinine 0.90 mg/dL 0.50-1.40 BUN/Creatinine Ratio 10.0 8-20 Calcium 9.7 mg/dL 8.1-9.9 Egfr Non- 93.5 >60 Egfr 120.2 >60 3 Laboratory test finding 07/15/2012 Inr 0.92 0.82-1.17 4 Activated Partial Thrombo Time 38.1 sec High 22.18-37.18 5 Surgical Pathology 05/24/2010 Surgical Pathology <SEE 6 NOTE> CBC With Electronic 05/17/2010 White Blood Count 6.0 CUMM 4.8-10.8 7 Diff Red Cell Count 4.86 CUMM 4.6-6.2 7 Hemoglobin 15.4 g/dL 14.0-18.0 7 Hematocrit 44 % 42-52 7 Mean Corpuscular Volume 91 um3 80-94 7 Mean Corpuscular Hemoglob 32 pg High 27-31 7 Mean Corpuscular HGB Cone 35 g/dL 32-36 7 Redcell Distribution WDTH 13 % 10.5-15 7 Platelet Count 206 CUMM 150-450 7 Mean Platelet Volume 7.5 um3 7.4-10.4 7 Gran % 56.5 % 38-83 7 Lymph % 32.4 % 25-47 7 Mononuclear % 7.6 % 1-9 7 Eosinophil % 3.0 % 0-6 7 Basophil % 0.5 % 0-2 7 Abs Lymphs 1.9 1.0-4.8 7 Abs Mononuclear 0.5 0-0.8 7 Absolute Neutrophil Count 3.4 1.5-7.7 7 Abs Eosinophils 0.2 0-0.6 7 Abs Basophils 0 0-0.2 7 Type And Screen (Pre-Adm) 05/17/2010 Patient Blood Type B POSITIVE 7 Antibody Screen NEGATIVE 7 Specimen Discard Date 05/31/2010 7, 8 Basic Metabolic Panel 05/17/2010 Sodium 137 mmol/L 135-145 7 Potassium 4.4 mmol/L 3.5-5.0 7 Chloride 103 mmol/L 101-111 7 Co2 (Carbon Dioxide) 30.0 mmol/L 22-32 7 Anion Gap 4.0 mmol/L 2-11 7, 9 Glucose 106 mg/dL High 70-100 7, 10 BUN 14 mg/dL 6-24 7 Creatinine 0.89 mg/dL 0.50-1.40 7 One Over Creatinine 1.10 7 BUN/Creatinine Ratio 15.7 8-20 7 Calcium 9.3 mg/dL 8.1-9.9 7 eGFR Non- 101.7 > 60 7 eGFR 123.0 > 60 7, 11 1 AA 07/18 2 Because ethnic data is not always readily available, this report includes an eGFR for both -Americans and non- Americans. The National Kidney Disease Education Program (NKDEP) does not endorse the use of the MDRD equation for patients that are not between the ages of 18 and 70, are , have extremes of body size, muscle mass, or nutritional status, or are non- or non-. According to the National Kidney Foundation, irrespective of diagnosis, the stage of the disease is based on the level of kidney function: Stage Description GFR(mL/min/1.73 m(2)) 1 Kidney damage with normal or decreased GFR 90 2 Kidney damage with mild decrease in GFR 60-89 3 Moderate decrease in GFR 30-59 4 Severe decrease in GFR 15-29 5 Kidney failure <15 (or dialysis) 3 Because ethnic data is not always readily available, this report includes an eGFR for both -Americans and non- Americans. The National Kidney Disease Education Program (NKDEP) does not endorse the use of the MDRD equation for patients that are not between the ages of 18 and 70, are , have extremes of body size, muscle mass, or nutritional status, or are non- or non-. According to the National Kidney Foundation, irrespective of diagnosis, the stage of the disease is based on the level of kidney function: Stage Description GFR(mL/min/1.73 m(2)) 1 Kidney damage with normal or decreased GFR 90 2 Kidney damage with mild decrease in GFR 60-89 3 Moderate decrease in GFR 30-59 4 Severe decrease in GFR 15-29 5 Kidney failure <15 (or dialysis) 4 The INR(International Normalized Ratio) was adopted by the World Health Organization (WHO) in 1982 as a standardized system of reporting PT (Prothrombin Time). The Centers for Disease Control (CDC) states that reporting of PT results in INR only is the preferred method. Recommended INR for Patients on Oral Anticoagulants Prophylaxis 2.0 - 3.0 Treatment of thrombosis 2.0 - 3.0 Prevention of embolism 2.0 - 3.0 Prevention of embolism from prosthetic heart valves 2.5 - 3.5 5 SDS 07/16 6 --- RUN DATE: [facility]25/10 [facility] TIME: 1611 Specimen Inquiry RUN USER: INTERFACE -- Name: STUART MAO Status: DIS IN Re05/24/10 Age/Sex: 40/M Unit#: [id number] Location: [facility]. : 74 -- Specimen: [id number] SOUT Spec Date: 05/24/[address]: Shawn lockett MD Spec Type: SURGICAL P Received: 05/24/10-1300 Copies to: SPECIMEN L5-S1 DISC LEFT SIDE HISTORY PRE-OP DIAGNOSIS: Left L4-L5, L5-S1 herniated disc. GROSS DESCRIPTION The specimen is received in formalin labelled Stuart Mao, L5-S1 Left Side, and consists of multiple fragments of pink fibrous tissue measuring in aggregate 1.5 x 1.5 x 0.8 cm. Transmission Line Engineer section, one cassette. DIAGNOSIS Disc, L5-S1, discectomy: Fibrohyaline cartilage with marked regenerative changes. Signed Electronically by: EBER SCHULTZ 05/25/10 0368 -- -- DEPARTMENT OF PATHOLOGY, [address] [place] [address] [facility] Permit #[id number] Nicola Traore M.D. Director Eber Schultz M.D. S3B Multi Sensor Operator Dir mishra -- 7 05/24/10 8 PREADMISSION TESTING SAMPLES FOR BLOOD BANK WILL BE HELD FOR 14 DAYS FROM THE DATE OF COLLECTION *IF* THE FOLLOWING CRITERIA ARE MET: 1) THE PATIENT HAS *NOT* BEEN IN THE LAST 3 MONTHS. 2) THE PATIENT HAS *NOT* BEEN TRANSFUSED IN THE LAST 3 MONTHS. PREADMISSION TESTING SAMPLES WILL *NOT* BE HELD FOR 14 DAYS FROM PATIENTS WHO IN THE LAST 3 MONTHS: 1) HAVE BEEN 2) HAVE BEEN TRANSFUSED THESE PATIENTS *MUST* BE COLLECTED WITHIN 3 DAYS OF THE SURGERY DATE. 9 Anion gap measurement may be of limited value in the presence of any alkalosis, especially in a combined acid base disorder. . 10 Note change in reference range as of 03/03/08. The change was based on recommendations from the [place] [employer]. 11 Because ethnic data is not always readily available, this report includes an eGFR for both -Americans and non- Americans. The National Kidney Disease Education Program (NKDEP) does not endorse the use of the MDRD equation for patients that are not between the ages of 18 and 70, are , have extremes of body size, muscle mass, or nutritional status, or are non- or non-. According to the National Kidney Foundation, irrespective of diagnosis, the stage of the disease is based on the level of kidney function: Stage Description GFR(mL/min/1.73 m(2)) 1 Kidney damage with normal or decreased GFR 90 2 Kidney damage with mild decrease in GFR 60-89 3 Moderate decrease in GFR 30-59 4 Severe decrease in GFR 15-29 5 Kidney failure <15 (or dialysis) Procedures Date CPT Code Description Status 02/18/2018 10249 EKG Tracing & Interpretation Completed 01/22/2018 11769 ECHO Transthorasic Realtime 2D W Doppler & Color Flow Completed Hosp 2018 55186 Sleep Study Unattended,HRT Rate,Oxygen Sat,Resp Completed Effort/Airflow 12/17/2017 05761 Treadmill Interp/Report Only Completed 12/17/2017 26413 Stress Test Supervsn W/Out I/R Completed 12/15/2017 28252 Holter Monitor Review (24 hr)dr review & interp only Completed 12/11/2017 50740 ECG Monitor/Recording W/Visual Superimposition Scanning Completed 12/01/2017 30568 EEG Recording Awake & Asleep Completed 11/24/2017 72429 EKG Tracing & Interpretation Completed 09/03/2017 30577 Moderate Sedation Services; Same Phys Each Additional Completed 15 Mins 09/03/2017 47063 Moderate Sedation Services; Same Phys Intl 15 Mins; PT Completed >=5 Years 09/03/2017 75354 Color Flow Doppler/Interp & Reprt Completed 09/03/2017 44101 Pulse Wave/Continuous-Interp.RPT Completed 09/03/2017 92422 Echocardiography, Transesophageal, Real Time W/Image 2D Completed W/W/O M-M 08/28/2017 73572 Echocardiography, Transesophageal, Real Time W/Image 2D Completed W/W/O M-M 07/27/2017 34313 ECHO Transthorasic Realtime 2D W Doppler & Color Flow Completed Hosp 07/18/2016 79078 Laminotomy: Reexploration Single Interspace Lumbar Completed 07/18/2016 36280 Laminotomy: Reexploration Single Interspace Lumbar Completed 07/11/2016 90009 EKG, Interpretation Only Completed 07/16/2012 41895 Brito/Facet/Foraminotomy;Ea Addl Segment; Cerv, Thora, Or Completed Lumbar 07/16/2012 64378 Brito/Facet/Foraminotomy;Vertebral Segment; Lumbar Completed 07/15/2012 64358 EKG, Interpretation Only Completed 05/24/2010 44051 Lamintomy;Each Addl Inerspace; Cervical Or Lumbar Completed 05/24/2010 05085 Laminotomy W/Decomp NRV RT,One Interspace,Lumbar Completed 05/27/2007 99241 Echocardiogram Completed 05/27/2007 41142 Echocardiogram Completed 05/27/2007 80997 Echocardiogram Completed 05/27/2007 05748 Pulse Doppler & Continuous Wave Completed 05/27/2007 05659 Pulse Doppler & Continuous Wave Completed 05/27/2007 37773 Color Doppler Completed 05/27/2007 77810 Color Doppler Completed 05/26/2007 82495 ECHO/Stress Completed 05/26/2007 96479 ECHO/Stress Completed 05/26/2007 27905 Stress Test Completed Encounters Type Date Location Provider CPT E/M Dx [facility] Shad Oneal, [address]83 R50.9 9:04a Francisca Cruz Office Visit 01/23/2018 [facility] Jose Orosco 26479 R50.9 12:58p Infectious Diseases Nancy Thomas R00.0 R78.81 Office Visit 01/22/2018 [facility] Marce Jordan N.PEmani 04673 R50.9 Hospitalists R53.1 R00.0 R79.89 Office Visit 2018 7:00a [facility] [address] R29.810 R29.701 I10 R51 Office Visit 01/01/2018 8:00a Pulmonology [place] [address] R06.83 Services Of [facility] E66.09 G47.50 Z68.39 Office Visit 12/02/2017 7:00a [facility] [address] G45.9 I10 E11.8 Z86.73 Office Visit 12/02/2017 11:28a [facility] [place], 92743 R29.898 Assoc,pc Hospitalists [place] E11.8 Z86.73 Office Visit 12/01/2017 7:00a [facility] [address] G45.9 I10 E11.8 Z86.73 Office Visit 11/24/2017 10:20a [facility] Jamir Lisa, 00931 I63.9 M.D. Q21.1 G45.9 I10 E78.2 E66.9 G47.33 R06.02 R94.31 Office Visit 10/27/2017 [facility]p [facility] [address] I63.10 Assoc,pc Hospitalists MLadonna E11.9 I10 Office Visit 10/26/2017 12:03p [facility], 51079 I63.10 Assoc, Hospitalists MLadonna E11.9 I10 Office Visit 10/26/2017 1:55p [facility] Elizabeth Humphrey, 50929 I63.9 M.DEmani I10 E11.9 Q21.1 Office Visit 10/25/2017 1:54p [facility] Elizabeth Humphrey, 38534 I63.9 M.D. I10 E11.9 Q21.1 Office Visit 10/25/2017 [facility] 05244 I63.10 Assoc, Hospitalists MLadonna E11.9 I10 Office Visit 08/25/2017 10:30a [facility] Charly Goodson, 70291 R20.2 M.DEmani D68.59 Z86.73 Office Visit 07/27/2017 8:17a [facility] Assoc,[place] [address] G45.9 Hospitalists E11.9 M54.5 I10 Office Visit 07/26/2017 3:00p [facility] Charly Goodson, 28625 R20.2 Nancy G89.29 E11.9 I10 Office Visit 07/26/2017 8:17a [facility], Donna Petitjono, KALYAN 47649 G45.9 Hospitalists E11.9 M54.5 I10 Office Visit 07/25/2017 8:16a [facility], Aby Arteaga, 42393 G45.9 Hospitalists D.O. E11.9 M54.5 I10 Office Visit 10/21/2016 1:10p Neurosurgery Services Mo Lyons, 11602 M54.5 Of Mili Cruz Office Visit 07/10/2016 9:00a Neurosurgery Services Mo Lyons 11071 M51.26 Of Mili Cruz Office Visit 07/01/2016 9:00a Neurosurgery Services Mo Lyons 88632 M51.26 Of Mili Cruz Office Visit 06/28/2016 1:25p [facility], Abelino Wilson M.D. 11847 M54.5 Hospitalists E66.01 Office Visit 06/26/2016 [facility] [place] 52905 E66.01 Assoc, Hospitalists N.P. M54.5 Office Visit 06/19/2015 10:40a Neurosurgery Services Shawn Lugo 33521 M51.27 Of Mili Cruz M54.42 Office Visit 01/03/2015 3:20p Neurosurgery Services Shawn Lugo 83580 722.10 Of Mili Cruz V45.89 847.2 724.8 729.5 Office Visit 10/04/2014 3:00p Neurosurgery Services Shawn Lugo 06469 722.10 Of Mili Cruz V45.89 847.2 729.5 Office Visit 10/12/2013 10:00a Neurosurgery Services Shawn Lugo 62594 722.10 Of Mili Cruz V45.89 724.3 Office Visit 05/22/2012 11:20a Neurosurgery Services Shawn Lugo 93554 721.3 Of Mili Cruz 724.4 Office Visit 04/23/2012 3:20p Neurosurgery Services Shawn Lugo, 10959 721.3 Of Senior Teller M.D. 724.4 Office Visit 03/23/2012 3:30p Neurosurgery Services Of Shad Munoz, 77200 721.3 [facility] N.PEmani 724.4 Office Visit 12/02/2011 3:00p Neurosurgery Services Sahwn Lugo, 66087 722.10 Of Senior Teller M.D. Office Visit 11/08/2011 11:40a Neurosurgery Services Shawn Lugo, 27863 722.10 Of Senior Teller M.D. Office Visit 04/04/2011 2:20p Neurosurgery Services Shawn Lugo, 44164 722.10 Of Senior Teller M.D. Office Visit 03/04/2011 3:20p Neurosurgery Services Shawn Lugo 77603 722.10 Of Senior Teller M.D. Office Visit 08/24/2010 2:20p Neurosurgery Services Shawn Lugo 73039 722.10 Of Senior Teller M.D. Office Visit 05/14/2010 9:40a Neurosurgery Services Shawn Lugo, 69851 724.3 Of Senior Teller M.D. Office Visit 05/07/2010 10:00a Neurosurgery Services Shawn Lugo, 76696 724.3 Of Senior Teller M.D. Office Visit 09/25/2009 1:40p Neurosurgery Services Shawn Lugo, 36170 721.3 Of Senior Teller M.D. 721.0 722.10 Office Visit 05/26/2007 2:30p [facility] Shauna Lisa, 80138 786.50 Nancy 794.31 Plan of Care Future Appointment(s):02/25/2018 11:00 am - Shauna Lisa M.D[facility] at [facility] Zjwndvshlf20/08/2018 - Shauna Lisa M.D.G47.33 Obstructive sleep apnea (adult) (pediatric)G45.9 Transient cerebral ischemic attack, zxyslzufffgF88.9 Obesity, hiwpifortvuX95.1 Atrial septal defectNew Orders: EchocardiogramFollow up:8 months ovE78.2 Mixed hyperlipidemia
[2018-03-07 15:50] LABS: ABS Basophils 0.1 10^3/ul (0-0.2); ABS Eosinophils 0.2 10^3/ul (0-0.6); ABS Lymphocytes 1.5 10^3/ul (1.0-4.8); ABS Monocytes 0.3 10^3/ul (0-0.8); ABS Neutrophils 3.2 10^3/ul (1.5-7.7); ABS Nucleated RBC 0 10^3/ul; Hematocrit 43 % (42-52); Hemoglobin 14.9 g/dl (14.0-18.0); Mean Corpuscular HGB Conc 35 g/dl (31-36); Mean Corpuscular Hemoglobin 31 pg (27-31); Mean Corpuscular Volume 90 fL (80-94); Mean Platelet Volume 8.3 um3 (7.4-10.4); Nucleated Red Blood Cells % 0.1; Platelet Count 190 10^3/ul (150-450); Red Blood Count 4.75 10^6/ul (4.00-5.40); Red Cell Distribution Width 13 % (10.5-15); White Blood Count 5.2 10^3/ul (3.5-10.8)
--- NOTE | 2018-03-07 15:52 | RAD ---
Indication: Palpitations. Previous patent foramen ovale repair. Asthma. Comparison: January 22, 2018 Technique: Upright AP 1538 hours Report: Clear lungs and pleural spaces. Negative for pneumothorax. The heart, pulmonary vasculature, and mediastinal contours are unremarkable. Dorsal column stimulator leads noted extending as far cephalad as the T9-T10 level. Unremarkable osseous structures and soft tissue contours. IMPRESSION: #. No evidence for acute intrathoracic disease.
[2018-03-07 16:05] LABS: INR 0.97 (0.77-1.02)
--- NOTE | 2018-03-07 16:25 | RAD ---
Indication: Occipital headache. Irregular heartbeat. Comparison: January 08, 2018 Technique: Noncontrast CT vertex of skull through foramen magnum. Report: The sulci, ventricles, and basal cisterns are normal for age. Mullen matter white matter differentiation is preserved without evidence for edema. No intra or extra axial hemorrhage, mass, or fluid collection detected. Unremarkable visualized orbital contents. Unremarkable calvarium and skull base. Unremarkable scalp. The visualized paranasal sinuses and mastoid air spaces are clear. IMPRESSION: #. Negative unenhanced head CT.
[2018-03-07] MEDS ORDERED: Magnesium Oxide TAB* 400 MG PO ONE (17:46)
[2018-03-07 18:22] VITALS: BP 124/89
== END 2018-03-07 18:21 | disposition home or self-care (01) ==
LOC: ED 13:26
DX: R00.2 Palpitations (principal); R51 Headache; Z88.0 Allergy status to penicillin; Z86.73 Personal history of transient ischemic attack (TIA), and cerebral infarction without residual deficits
CPT/HCPCS: 36415; 70450; 71045; 80053; 82550; 82553; 83605; 83690; 83735; 83880; 84443; 84484; 85025; 85610; 85730; 86140; 93005; 96360; 99284